=== PATIENT | male | born 1935 | race Caucasian/White ===

== ENCOUNTER → 2017-01-08 | Outpatient (CLI) | payer BC ==
[~2017-01-08] MED LIST: ADVIN25/60 INH; ATOR10TA82 PO; BEE1CAP PO; CHOL100010 PO; COEN75CA PO; FLM4 PO; GABA600T PO; GARL705C PO; IPRA1AER2 INH; LRS10 PO; MULT-221 PO; PRLSR20 PO; SNQ/25 PO; TRAM-10 PO; TRL300 PO
[2017-01-08 18:01] LABS: ALT/SGPT 25 U/L (12-78); AST/SGOT 29 U/L (15-37); BLOOD UREA NITROGEN 17 mg/dl (7-18); BUN/CREATININE RATIO 12.2 (10-20); CARBON DIOXIDE 26 mmol/L (21-32); CHLORIDE 103 mmol/L (98-107); GLUCOSE 87 mg/dl (70-99); POTASSIUM 3.9 mmol/L (3.5-5.1); SODIUM 137 mmol/L (136-145)
[2017-01-08 18:04] LABS: CHOLESTEROL/HDL RATIO 2.7
[2017-01-08 18:14] LABS: ALB/GLOB RATIO 1.3 (0.9-2); ALKALINE PHOSPHATASE 89 U/L (45-117)
== END | disposition home or self-care (01) ==
LOC: C.LABPVFM 10:30
PROVIDERS: ATTEND Family Medicine
DX: N40.1 Benign prostatic hyperplasia with lower urinary tract symptoms (principal); E78.5 Hyperlipidemia, unspecified; K21.9 Gastro-esophageal reflux disease without esophagitis; G50.0 Trigeminal neuralgia

== ENCOUNTER → 2018-06-02 | Outpatient (CLI) | payer BC | END | disposition home or self-care (01) | LOC: C.LABSPEC 13:20 | PROVIDERS: ATTEND Nurse Practitioner | DX: L02.413 Cutaneous abscess of right upper limb (principal) ==

== ENCOUNTER 2019-02-13 22:30 | Inpatient (IN) ==
[2019-02-13 23:15] LABS: Appearance Urine Clear (Clear); Bacteria Urine Automated Negative (Negative); Bilirubin Urine Negative (Negative); Blood Urine Trace (Negative); Cast Urine Automated 0 /lpf (0-5); Color Urine Yellow; Glucose Urine UA Negative (Negative); Ketones Urine Negative (Negative); Leukocyte Esterase Urine Negative (Negative); Nitrite Urine Negative (Negative); Protein Urine Negative (Negative); RBC Urine Automated 0-4 /hpf (0-4); Specific Gravity Urine 1.016 (1.000-1.030); Urobilinogen Urine Negative (Negative); pH Urine 5.5 (4.5-7.5)
[2019-02-13 23:25] LABS: Eosinophils # (auto) 0.09 K/uL (0-0.5); Eosinophils % (auto) 1.6 %; Hematocrit (blood only) 37.4 % (42-52); Hemoglobin 12.8 g/dL (14.0-18.0); Immature Granulocytes # (auto) 0.02 K/uL (0.00-0.02); Immature Granulocytes % (auto) 0.4 %; Lymphocytes # (auto) 0.73 K/uL (1.2-3.4); Lymphocytes % (auto) 13.1 %; Mean Corpuscular Hgb Conc 34.2 g/dL (32-36); Mean Corpuscular Volume 84.6 fL (80-100); Mean Platelet Volume 9.6 fL (7.4-10.4); Monocytes # (auto) 0.51 K/uL (0.11-0.59); Monocytes % (auto) 9.2 %; Neutrophils # (auto) 4.21 K/uL (1.4-6.5); Neutrophils % (auto) 75.7 %; Platelet Count 159 K/uL (130-400); RDW Standard Deviation 43.4 fL (36.4-46.3); Red Blood Count 4.42 M/uL (4.7-6.1); White Blood Count 5.56 K/uL (4.8-10.8)
[2019-02-13 23:46] LABS: Albumin Level 3.8 gm/dl (3.4-5.0); BUN Creatinine Ratio 12.9 (10-20); Calcium 9.1 mg/dl (8.5-10.1); Creatinine Clr Calc Pharmacy 40.7 ml/min; Est GFR (African American) 47.7; Est GFR (Non-African American) 41.1
[2019-02-13 23:49] LABS: Albumin Globulin Ratio 1.1 (0.9-2); Bilirubin,Total 0.5 mg/dl (0.2-1); Globulin 3.4 gm/dl (2.5-4.0); Total Protein 7.2 gm/dl (6.4-8.2)
[2019-02-14] MEDS ORDERED: IOVERSOL 100ml IV PRN (00:17)
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
--- NOTE | 2019-02-14 01:53 | History & Physical Bridge Note ---
Date of Service February 14, 2019 History & Physical Bridge Note I have examined the patient, reviewed the History & Physical and in the interval since the performance of the History & Physical I have noted the following changes of clinical significance: no changes noted
[2019-02-14] MEDS ORDERED: SUCCINYLCHOLINE 100MG/5ML SYR ONE (02:06)
[2019-02-14] MEDS ORDERED: ONDANSETRON INJ 2 MG/ML 2 ML VIAL ONE (02:06)
[2019-02-14] MEDS ORDERED: PROPOFOL IV EMULSION 10 MG/ML 20 ML VIAL IV ONE (02:06)
[2019-02-14] MEDS ORDERED: ROCURONIUM BROMIDE 10 MG/ML 5 ML VIAL ONE ×2 (02:06→04:28)
[2019-02-14] MEDS ORDERED: LIDOCAINE HCL 2% 2 ML VIAL/AMP(20MG/ML) INFIL ONE (02:06)
[2019-02-14] MEDS ORDERED: fentaNYL citrate 100 MCG/2 ML VIAL ONE (02:06)
[2019-02-14] MEDS ORDERED: ONDANSETRON INJ 2 MG/ML 2 ML VIAL IV PRN (02:10)
[2019-02-14] MEDS ORDERED: ATROPINE SULFATE 0.1 MG/ML 10ML SYR IV PRN (02:10)
[2019-02-14] MEDS ORDERED: ePHEDrine sulfate 50 MG/ML AMP IV PRN (02:10)
[2019-02-14] MEDS ORDERED: fentaNYL citrate 100 MCG/2 ML VIAL IV PRN (02:10)
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
[2019-02-14] MEDS ORDERED: LIDOCAINE HCL 1% 20 ML VIAL ONE (02:43)
[2019-02-14] MEDS ORDERED: BACITRACIN OINT 15 GM TUBE ONE (02:43)
[2019-02-14] MEDS ORDERED: BUPIVACAINE 0.5 % 5 MG/1 ML MPF 30ML VIAL ONE (02:43)
[2019-02-14] MEDS: CLINDAMYCIN 600 MG/54 ML BAG IV SCH ×2 (03:08→15:38)
[2019-02-14] MEDS ORDERED: ePHEDrine sulfate 50 MG/ML SYR ONE (03:23)
[2019-02-14] MEDS ORDERED: LARYING-O-JET KIT (LTA) ONE (03:35)
[2019-02-14] MEDS ORDERED: PHENYLEPHRINE HCL 10 MG/ML VIAL ONE (03:42)
--- NOTE | 2019-02-14 04:36 | Post Operative Brief Note ---
Immediate Post Op Note v1 Date of Surgery February 14, 2019 Pre & Post Diagnosis Operation Date: 02/14/19 02:30 Pre-Op Diagnosis: Recurrent Incarcerated Right Inguinal Hernia Post-Op Diagnosis: Recurrent Incarcerated Right Inguinal Hernia Procedure Operation Date: 02/14/19 02:30 Actual Procedures p Right Incarcerated Recurrent Inguinal Hernia Repair with Mesh Plug(Right) - Nini Stock MD Surgeon Nini Stock MD [employer] Estimated Blood Loss 10 Findings Consistent with Post-Op Diagnosis INCARCERATED RECURRENT RIGHT INGUINAL HERNIA, Fluids 800ML Specimens NONE Anesthesia Type General Complications none Disposition Accompanied Patient To Recovery: Yes Disposition: Recovery Room Overlapping Procedure I was immediately available: during the entire case.
[2019-02-14] MEDS ORDERED: HYDROmorphone INJ 0.5 MG/0.5 ML SYR IV PRN (04:47)
[2019-02-14] MEDS ORDERED: OXYCODONE/ACETAMINOPHEN 5mg/325mg TAB PO PRN (04:47)
--- NOTE | 2019-02-14 05:09 | Anesthesiology Progress Note ---
Date of Service February 14, 2019 Anesthesia Post Procedure Vital Signs Vital Signs: Temp Pulse Pulse Resp BP BP Pulse Ox 02/14/19 05:05 78 16 121/72 92 02/14/19 04:55 78 16 126/77 92 02/14/19 04:45 36.6 C 79 14 114/73 94 02/14/19 02:02 16 165/84 H 94 02/14/19 00:20 70 16 165/84 H 94 02/13/19 23:55 66 143/82 H 95 02/13/19 23:03 90 02/13/19 22:38 36.6 C 69 24 143/82 H 92 Pain Intensity Lower Abdomen: Pain Intensity: 0 Transfer of Care Handoff Completed per policy Notes Mental Status: alert / awake / arousable and participated in evaluation Patient Amnestic to Procedure: Yes Nausea / Vomiting: adequately controlled Pain: adequately controlled Airway Patency, RR, SpO2: stable & adequate BP & HR: stable & adequate Hydration State: stable & adequate Anesthetic Complications: no major complications apparent and Pt Satisfied with anesthetic care
[2019-02-14] MEDS ORDERED: TRAMADOL HCL 50 MG TABLET PO PRN (06:07)
[2019-02-14] MEDS: LACTATED RINGER'S 1,000 ML IV SCH ×2 (06:34→20:36)
[2019-02-14 06:40] LABS: Basophils # (auto) 0.01 K/uL (0-0.2); Basophils % (auto) 0.2 %; Eosinophils # (auto) 0.07 K/uL (0-0.5); Eosinophils % (auto) 1.3 %; Hematocrit (blood only) 34.4 % (42-52); Hemoglobin 12.1 g/dL (14.0-18.0); Immature Granulocytes # (auto) 0.01 K/uL (0.00-0.02); Immature Granulocytes % (auto) 0.2 %; Lymphocytes # (auto) 0.61 K/uL (1.2-3.4); Lymphocytes % (auto) 10.9 %; Mean Corpuscular Hgb Conc 35.2 g/dL (32-36); Mean Corpuscular Volume 83.5 fL (80-100); Mean Platelet Volume 8.4 fL (7.4-10.4); Monocytes # (auto) 0.64 K/uL (0.11-0.59); Monocytes % (auto) 11.4 %; Neutrophils # (auto) 4.26 K/uL (1.4-6.5); Platelet Count 139 K/uL (130-400); RDW Standard Deviation 42.4 fL (36.4-46.3); Red Blood Count 4.12 M/uL (4.7-6.1)
--- NOTE | 2019-02-14 06:45 | CT Scan Report ---
CT abd pelvis IV con only CT DOSE: 995.35 mGy.cm HISTORY: Pain Pt c/o suprapubic pain TECHNIQUE: Multiaxial CT images of the abdomen and pelvis were performed following the use of intrave nous contrast. A dose lowering technique was utilized adhering to the principles of ALARA. COMPARISON STUDY: 03/11/2012 FINDINGS: Bibasilar parenchymal infiltrates. Liver spleen and pancreas are unremarkable. 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 No evidence for renal hydronephrosis. Nonobstructive bowel pattern. 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 No evidence of 4 extraluminal fluid or dissection. Unremarkable pancreas. The remainder the bowel pattern is nonobstructive. Probable small gallstones versus gallbladder polyp s. Scattered colonic diverticulosis. Right inguinal hernia containing a nonobstructive short segment loop of bowel. Han catheter within the bladder. 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 No evidence for rupture . Considerable atelectatic change of the remaining arterial vasculature. IMPRESSION: 1. Right inguinal hernia containing a short segment loop of bowel. This is nonobstructing. 2. Polycystic kidneys. 3. Several gallstones and a polyps within the gallbladder lumen. 4. Small hiatal hernia. 5. Basilar parenchymal infiltrates. 6. 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 The above report was generated using voice recognition software. It may contain grammatical, syntax or spelling errors. Electronically signed by: Jimmy Hyatt M.D. 02/14/2019 6:44 AM
[2019-02-14 06:50] LABS: INR 1.1 (0.9-1.1); Prothrombin Time 11.6 Seconds (9.0-12.0)
[2019-02-14 07:23] LABS: Albumin Level 3.3 gm/dl (3.4-5.0); BUN Creatinine Ratio 12.1 (10-20); Bilirubin,Total 0.5 mg/dl (0.2-1); Calcium 8.6 mg/dl (8.5-10.1); Creatinine Clr Calc Pharmacy 43.8 ml/min; Est GFR (African American) 52.2; Globulin 3.2 gm/dl (2.5-4.0); Potassium 3.7 mmol/L (3.5-5.1); Total Protein 6.5 gm/dl (6.4-8.2)
--- NOTE | 2019-02-14 07:45 | Operative Report ---
DATE OF OPERATION: 02/14/2019 PREOPERATIVE DIAGNOSIS: Incarcerated recurrent right inguinal hernia. POSTOPERATIVE DIAGNOSIS: Incarcerated recurrent right inguinal hernia. OPERATION: Open repair of incarcerated recurrent right inguinal hernia with mesh. SURGEON: Nini Stock MD ANESTHESIA: General. ESTIMATED BLOOD LOSS: About 10 mL. FINDINGS: Incarcerated recurrent right inguinal hernia. Compromised blood circulation to small bowel. COMPLICATIONS: None. INDICATIONS FOR THE PROCEDURE: This is an 83-year-old gentleman who presented to the ED with incarcerated recurrent right inguinal hernia and the patient will be required to do open repair incarcerated recurrent right inguinal hernia, possible mesh. I did talk to the patient and the patient's family member about the benefit and risk, alternate procedure. I indicated the risks may include but not limited such as bleeding, infection, hernia recurrence, chronic pain, may need a bowel resection, myocardial infarction, DVT, stroke, even . They understand that they agreed to proceed with procedure. The patient's signed the consent and I answered all questions. DETAILS OF PROCEDURE: We brought the patient to the OR, put the patient in the supine position. The patient received SCD on bilateral legs to prevent DVT. The patient received 600 mg of clindamycin IV for prophylactic antibiotic. The patient received general anesthesia without difficulty. The abdomen, bilateral inguinal area was appropriately draped in routine sterile fashion. After time out, the patient had a large right inguinal incision scar and also with the bulging incarcerated hernia on the right inguinal area, so we used the old scar and made the incision, opened the skin and the subcutaneous layer, reached the external oblique, opened the external oblique and we found the patient had the incarcerated hernia. The blood circulation compromised on the bowel of the hernia content. Then, we enlarged the hernia neck and waited 10 minutes; small bowel color is getting much better and only one small spot. The small bowel color has not 100% returned pink, but that is already getting much better. At this moment, we decided to reduce all other hernia contents of bowel back to the abdominal cavity. No bowel perforation or tight bowel at this moment. So at this moment, we found the patient had recurrence of hernia through the mesh. Then, we chose another plug to plug the hernia neck and then match with another 3 x 5 cm mesh to reinforce the enlarged neck of hernia, using 2-0 Prolene mesh to the old mesh and created a new to hold for the cord structure. Then, the mesh is seated nicely, no tension. Hemostasis was obtained. Then, we closed the external oblique fascia by using 2-0 Vicryl continuous running, closed subcutaneous layer by using 2-0 Vicryl continuous running, closed skin by using staple. Then, we put the dressing on. Also, we injected the local anesthesia by using 1% lidocaine mixed with 0.5% Marcaine around the incision. Then, we put the dressing on. The patient tolerated the procedure well. All the instrument, needle, sponge count were correct x2 at the end of the case. The patient was transferred to recovery room in stable condition. I attest to the content of the Intraoperative Record and any orders documented therein. Any exception s are noted below.
[2019-02-14] MEDS ORDERED: POLYETHYLENE (MIRALAX) 17 GM PACK PO PRN (07:46)
[2019-02-14] MEDS: ATORVASTATIN 10 MG TAB PO SCH (08:55)
[2019-02-14] MEDS: lamoTRIgine 100 MG TAB PO SCH ×2 (08:56→20:33)
[2019-02-14] MEDS: DOXEPIN HCL 25 MG CAPSULE PO SCH ×2 (08:57→20:33)
[2019-02-14] MEDS: GABAPENTIN 600 MG TAB PO SCH ×2 (08:57→20:33)
[2019-02-14] MEDS: NEOMYCIN/POLYMYX/BACITR OINT 15 GM TUBE TOP SCH ×3 (08:59→20:33)
[2019-02-14] MEDS ORDERED: ENOXAPARIN INJ 30 MG/0.3 ML SYR SQ SCH (09:00)
[2019-02-14] MEDS ORDERED: CIPROFLOXACIN 500 MG TAB PO SCH (09:00)
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
--- NOTE | 2019-02-14 10:25 | Surgery Progress Note ---
Date of Service February 14, 2019 Assessment & Plan (1) Incarcerated right inguinal hernia: POD # 0 s/p repair of incarcerated right inguinal hernia -vitals stable, afebrile - post op pain minimal and controlled - no n/v, tolerating full liquids - no return of bowel function yet - adequate urine output Plan: Continue PO Percocet or Tramadol prn pain, breakthrough Dilaudid prn severe pain Continue IV Fluids Continue Full liquids for now, wait for return of bowel function Discontinue Han Incentive spirometry Consult hospitalist for co-management given comorbidities and age, await recs Consult PT/OT and case management for discharge planning SCDs for DVT prophylaxis Dr. Stock has seen and examined pt, agrees with above Subjective feeling okay today not having much pain at incision site, controlled no chest pain or shortness of breath has not been OOB since arriving in room no n/v tolerated full liquids Review of Systems Review of Systems: All systems reviewed & are unremarkable except as noted in HPI & below Physical Exam ENMT: Ears: + external ear abnormality (Edema of the left ear with ecchymosis) Respiratory: + abnormal respiratory effort and no respiratory distress Gastrointestinal (Abdomen): Inspection/Auscultation: abdomen normal to inspection; abdomen not distended Percussion/Palpation: abdomen soft; abdomen nontender, no guarding and abdomen not rigid Right groin: Incision covered with large pressure dressing which is dry and intact. Incision slightly inspected, richard intact, clean and dry Skin: no rashes, warm and dry Psychiatric: A+Ox3, euthymic affect Results & Data Vital Signs (Past 12 Hours) Vital Signs Temp Pulse Pulse Pulse Resp BP BP 02/14/19 08:44 36.4 C L 74 18 02/14/19 07:48 36.3 C L 75 18 02/14/19 06:45 36.4 C L 73 18 02/14/19 06:15 36.4 C L 74 18 02/14/19 05:45 36.5 C 75 18 02/14/19 05:25 77 16 120/61 02/14/19 05:16 77 16 111/75 02/14/19 05:05 78 16 121/72 02/14/19 04:55 78 16 126/77 02/14/19 04:45 36.6 C 79 14 114/73 02/14/19 02:02 16 165/84 H 02/14/19 00:20 70 16 165/84 H 02/13/19 23:55 66 143/82 H 02/13/19 23:03 02/13/19 22:38 36.6 C 69 24 143/82 H BP Pulse Ox 02/14/19 08:44 105/67 92 02/14/19 07:48 92/61 L 95 02/14/19 06:45 102/65 96 02/14/19 06:15 95/62 L 93 02/14/19 05:45 111/70 93 02/14/19 05:25 92 02/14/19 05:16 92 02/14/19 05:05 92 02/14/19 04:55 92 02/14/19 04:45 94 02/14/19 02:02 94 02/14/19 00:20 94 02/13/19 23:55 95 02/13/19 23:03 90 02/13/19 22:38 92
[2019-02-14] MEDS: TIOTROPIUM BROMIDE 5 PUFF/90 MCG INH INH SCH (12:52)
[2019-02-14] MEDS: DOCUSATE SODIUM 100 MG CAP PO SCH ×2 (12:52→20:33)
[2019-02-14] MEDS: RIVAROXABAN 20 MG TAB PO SCH (16:27)
[2019-02-14] MEDS: CIPROFLOXACIN 500 MG TAB PO SCH (20:33)
[2019-02-14] MEDS: TAMSULOSIN HCL 0.4 MG CAP PO SCH (20:33)
[2019-02-14] MEDS: BUDESONIDE/FORMOTEROL FUMARATE 80/4.5 60 PUFFS/INHALER INH SCH (20:33)
[2019-02-15] MEDS: LACTATED RINGER'S 1,000 ML IV SCH ×2 (05:43→16:21)
[2019-02-15 06:16] LABS: Eosinophils # (auto) 0.07 K/uL (0-0.5); Eosinophils % (auto) 1.3 %; Hematocrit (blood only) 37.2 % (42-52); Hemoglobin 12.5 g/dL (14.0-18.0); Immature Granulocytes # (auto) 0.02 K/uL (0.00-0.02); Immature Granulocytes % (auto) 0.4 %; Lymphocytes # (auto) 0.41 K/uL (1.2-3.4); Lymphocytes % (auto) 7.5 %; Mean Corpuscular Hgb Conc 33.6 g/dL (32-36); Mean Corpuscular Volume 85.1 fL (80-100); Mean Platelet Volume 9.3 fL (7.4-10.4); Monocytes # (auto) 0.99 K/uL (0.11-0.59); Monocytes % (auto) 18.1 %; Neutrophils # (auto) 3.97 K/uL (1.4-6.5); Neutrophils % (auto) 72.7 %; Platelet Count 155 K/uL (130-400); RDW Coefficient of Variation 14.2 % (11.5-14.5); RDW Standard Deviation 44.4 fL (36.4-46.3); Red Blood Count 4.37 M/uL (4.7-6.1); White Blood Count 5.46 K/uL (4.8-10.8)
[2019-02-15 06:53] LABS: BUN Creatinine Ratio 8.6 (10-20); Creatinine Clr Calc Pharmacy 42.9 ml/min; Est GFR (African American) 50.9; Est GFR (Non-African American) 43.9; Potassium 4.1 mmol/L (3.5-5.1)
[2019-02-15] MEDS: DOCUSATE SODIUM 100 MG CAP PO SCH ×2 (08:17→20:30)
[2019-02-15] MEDS: DOXEPIN HCL 25 MG CAPSULE PO SCH ×2 (08:17→20:32)
[2019-02-15] MEDS: CIPROFLOXACIN 500 MG TAB PO SCH ×2 (08:17→20:30)
[2019-02-15] MEDS: lamoTRIgine 100 MG TAB PO SCH ×2 (08:17→20:30)
[2019-02-15] MEDS: ATORVASTATIN 10 MG TAB PO SCH (08:18)
[2019-02-15] MEDS: GABAPENTIN 600 MG TAB PO SCH ×2 (08:18→20:32)
[2019-02-15] MEDS: BUDESONIDE/FORMOTEROL FUMARATE 80/4.5 60 PUFFS/INHALER INH SCH ×2 (08:19→20:34)
[2019-02-15] MEDS: NEOMYCIN/POLYMYX/BACITR OINT 15 GM TUBE TOP SCH ×3 (08:19→20:32)
[2019-02-15] MEDS: TIOTROPIUM BROMIDE 5 PUFF/90 MCG INH INH SCH (08:19)
--- NOTE | 2019-02-15 10:46 | Surgery Progress Note ---
Date of Service February 15, 2019 Assessment & Plan (1) Incarcerated right inguinal hernia: POD # 1 s/p repair of incarcerated right inguinal hernia - vitals stable, afebrile - post op pain minimal and controlled - no n/v, tolerating full liquids - no return of bowel function yet - adequate urine output Plan: Continue PO Percocet, Tramadol, Tylenol prn pain, breakthrough Dilaudid prn severe pain. Limit narcotics Continue IV Fluids, decrease rate to 50 mls/hr Regular diet today Miralax today Incentive spirometry Continue PT/OT and case management for discharge planning SCDs for DVT prophylaxis OOB to chair and ambulate with assistance repeat am labs Dr. Stock has seen and examined pt, agrees with above Subjective feeling okay today still no gas or bowel movement feeling slightly bloated, no nausea or vomiting tolerating full liquids Physical Exam Constitutional: WD/WN, vitals as above no acute distress and not ill appearing Respiratory: normal respiratory effort; no respiratory distress Gastrointestinal (Abdomen): Inspection/Auscultation: abdomen not distended Percussion/Palpation: abdomen soft; abdomen nontender, no guarding and abdomen not rigid Skin: no rashes, warm and dry + incision (Right groin incision covered with dry dressing) Psychiatric: A+Ox3, euthymic affect Results & Data Vital Signs (Past 12 Hours) Vital Signs Temp Pulse Resp BP Pulse Ox 02/15/19 07:57 36.9 C 86 16 122/78 95 02/15/19 07:13 37.2 C 84 18 98/64 L 90 02/14/19 23:56 37 C 83 18 119/72 95
[2019-02-15] MEDS ORDERED: ACETAMINOPHEN 325 MG TAB PO PRN (11:00)
[2019-02-15] MEDS: POLYETHYLENE (MIRALAX) 17 GM PACK PO SCH (11:20)
[2019-02-15] MEDS: RIVAROXABAN 20 MG TAB PO SCH (16:19)
[2019-02-15] MEDS: TAMSULOSIN HCL 0.4 MG CAP PO SCH (20:30)
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
[2019-02-16 07:38] LABS: Basophils # (auto) 0.01 K/uL (0-0.2); Basophils % (auto) 0.2 %; Eosinophils # (auto) 0.11 K/uL (0-0.5); Hematocrit (blood only) 33.5 % (42-52); Hemoglobin 11.4 g/dL (14.0-18.0); Immature Granulocytes # (auto) 0.04 K/uL (0.00-0.02); Immature Granulocytes % (auto) 0.7 %; Lymphocytes # (auto) 0.67 K/uL (1.2-3.4); Lymphocytes % (auto) 12.4 %; Mean Corpuscular Volume 85.2 fL (80-100); Monocytes # (auto) 0.97 K/uL (0.11-0.59); Neutrophils % (auto) 66.7 %; Platelet Count 158 K/uL (130-400); RDW Coefficient of Variation 14.1 % (11.5-14.5); RDW Standard Deviation 44.3 fL (36.4-46.3); Red Blood Count 3.93 M/uL (4.7-6.1)
[2019-02-16 08:04] LABS: BUN Creatinine Ratio 9.3 (10-20); Calcium 8.6 mg/dl (8.5-10.1); Creatinine Clr Calc Pharmacy 46.5 ml/min; Est GFR (Non-African American) 48.3; Potassium 3.9 mmol/L (3.5-5.1)
[2019-02-16] MEDS: DOXEPIN HCL 25 MG CAPSULE PO SCH ×2 (08:30→20:35)
[2019-02-16] MEDS: lamoTRIgine 100 MG TAB PO SCH ×2 (08:30→20:34)
[2019-02-16] MEDS: CIPROFLOXACIN 500 MG TAB PO SCH ×2 (08:30→20:34)
[2019-02-16] MEDS: TIOTROPIUM BROMIDE 5 PUFF/90 MCG INH INH SCH (08:31)
[2019-02-16] MEDS: DOCUSATE SODIUM 100 MG CAP PO SCH ×2 (08:31→20:34)
[2019-02-16] MEDS: ATORVASTATIN 10 MG TAB PO SCH (08:31)
[2019-02-16] MEDS: GABAPENTIN 600 MG TAB PO SCH ×2 (08:31→20:35)
[2019-02-16] MEDS: BUDESONIDE/FORMOTEROL FUMARATE 80/4.5 60 PUFFS/INHALER INH SCH ×2 (08:31→20:35)
[2019-02-16] MEDS: POLYETHYLENE (MIRALAX) 17 GM PACK PO SCH (08:31)
[2019-02-16] MEDS: NEOMYCIN/POLYMYX/BACITR OINT 15 GM TUBE TOP SCH ×3 (08:31→20:34)
[2019-02-16] MEDS ORDERED: BISACODYL 10 MG SUPP PR STA (14:44)
--- NOTE | 2019-02-16 14:50 | Surgery Progress Note ---
Date of Service February 16, 2019 Assessment & Plan (1) Incarcerated right inguinal hernia: POD # 2 s/p repair of incarcerated right inguinal hernia - vitals stable, afebrile - post op pain minimal and controlled - no n/v, tolerating regular diet - no return of bowel function yet - adequate urine output Plan: Continue PO Percocet, Tramadol, Tylenol prn pain, breakthrough Dilaudid prn severe pain. Limit narcotics discontinue IV fluids Regular diet Miralax and dulcolax today Incentive spirometry Continue PT/OT and case management for discharge planning, possibly home tomorrow with home health SCDs for DVT prophylaxis OOB to chair and ambulate with assistance Dr. Stock has seen and examined pt, agrees with above Subjective feeling good has not had bowel movement or passed gas yet. " I am trying" tolerating diet, no n/v no abdominal pain postop pain minimal urianting without difficulty Physical Exam Constitutional: WD/WN, vitals as above no acute distress and not ill appearing Respiratory: normal respiratory effort; no respiratory distress Gastrointestinal (Abdomen): Inspection/Auscultation: abdomen normal to inspection; abdomen not distended Percussion/Palpation: abdomen soft; abdomen nontender, no guarding and abdomen not rigid Skin: no rashes, warm and dry + incision ( covered with dry dressing) Psychiatric: A+Ox3, euthymic affect Results & Data Vital Signs (Past 12 Hours) Vital Signs Temp Pulse Resp BP Pulse Ox 02/16/19 06:58 36.5 C 79 18 118/73 93
[2019-02-16] MEDS: RIVAROXABAN 20 MG TAB PO SCH (19:22)
[2019-02-16] MEDS: TAMSULOSIN HCL 0.4 MG CAP PO SCH (20:34)
[2019-02-17] MEDS: CIPROFLOXACIN 500 MG TAB PO SCH (07:44)
[2019-02-17] MEDS: DOCUSATE SODIUM 100 MG CAP PO SCH (07:44)
[2019-02-17] MEDS: ATORVASTATIN 10 MG TAB PO SCH (07:45)
[2019-02-17] MEDS: BUDESONIDE/FORMOTEROL FUMARATE 80/4.5 60 PUFFS/INHALER INH SCH (07:45)
[2019-02-17] MEDS: lamoTRIgine 100 MG TAB PO SCH (07:45)
[2019-02-17] MEDS: NEOMYCIN/POLYMYX/BACITR OINT 15 GM TUBE TOP SCH (07:45)
[2019-02-17] MEDS: TIOTROPIUM BROMIDE 5 PUFF/90 MCG INH INH SCH (07:45)
[2019-02-17] MEDS: GABAPENTIN 600 MG TAB PO SCH (07:45)
[2019-02-17] MEDS: POLYETHYLENE (MIRALAX) 17 GM PACK PO SCH (07:46)
[2019-02-17] MEDS: DOXEPIN HCL 25 MG CAPSULE PO SCH (07:46)
[2019-02-17 08:18] VITALS: TEMP 98.4; O2SAT 97
[2019-02-17 08:22] LABS: Hematocrit (blood only) 33.3 % (42-52); Hemoglobin 11.2 g/dL (14.0-18.0); Mean Corpuscular Hgb Conc 33.6 g/dL (32-36); Mean Corpuscular Volume 85.4 fL (80-100); Mean Platelet Volume 8.9 fL (7.4-10.4); Platelet Count 176 K/uL (130-400); RDW Coefficient of Variation 14.2 % (11.5-14.5); RDW Standard Deviation 44.2 fL (36.4-46.3); White Blood Count 4.81 K/uL (4.8-10.8)
[2019-02-17 08:23] VITALS: BP 132/78
[2019-02-17 08:42] LABS: Creatinine Clr Calc Pharmacy 42.3 ml/min; Est GFR (African American) 50.1; Est GFR (Non-African American) 43.2
[2019-02-17 10:22] VITALS: PULSE 80
--- NOTE | 2019-02-17 10:26 | Surgery Progress Note ---
Date of Service February 17, 2019 Assessment & Plan (1) Incarcerated right inguinal hernia: POD # 3 s/p repair of incarcerated right inguinal hernia - vitals stable, afebrile - post op pain minimal and controlled - no n/v, tolerating regular diet - + bowel function - adequate urine output Plan: discharge home today with home health discharge instructions reviewed f/u surgical office 1-2 weeks Subjective feeling good ready to go home + bowel movements after suppository no n/v tolerating diet no post op pain/incisional pain Physical Exam Constitutional: WD/WN, vitals as above Gastrointestinal (Abdomen): Inspection/Auscultation: abdomen not distended Percussion/Palpation: abdomen soft; abdomen nontender, no guarding and abdomen not rigid Skin: no rashes, warm and dry + incision (clean/dry/intact, richard present) Psychiatric: A+Ox3, euthymic affect Results & Data Vital Signs (Past 12 Hours) Vital Signs Temp Pulse Pulse Pulse Resp BP BP 02/17/19 10:20 36.9 C 75 80 77 16 132/78 121/78 02/17/19 08:13 36.9 C 77 16 121/78 02/17/19 08:00 36.6 C 75 16 132/78 02/17/19 07:14 36.7 C 72 16 143/63 H 02/16/19 23:43 37.0 C 80 16 94/60 L Pulse Ox 02/17/19 10:20 97 02/17/19 08:13 97 02/17/19 08:00 92 02/17/19 07:14 93 02/16/19 23:43 92
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
== END 2019-02-17 11:35 | disposition home health service (06) | DRG 351 ==
LOC: ED 22:30 → 3W 02-14 02:02 → OR 02-14 02:02 → 3W 02-14 04:41

== ENCOUNTER 2020-11-23 09:32 | Inpatient (IN) ==
[2020-11-23] MEDS ORDERED: MoRPHine SULFATE 4 MG/ML 1 ML CARP\\VIAL IV STA (10:19)
[2020-11-23] MEDS ORDERED: ONDANSETRON INJ 2 MG/ML 2 ML VIAL IV STA (10:19)
[2020-11-23] MEDS ORDERED: MoRPHine SULFATE 4 MG/ML 1 ML CARP\\VIAL ONE (10:20)
[2020-11-23] MEDS ORDERED: ONDANSETRON INJ 2 MG/ML 2 ML VIAL ONE (10:20)
[2020-11-23 10:27] LABS: Hemoglobin 12.7 g/dL (14.0-18.0); Mean Corpuscular Hemoglobin 30.5 pg (25-34); Mean Corpuscular Hgb Conc 34.3 g/dL (32-36); Mean Corpuscular Volume 88.7 fL (80-100); Mean Platelet Volume 9.4 fL (7.4-10.4); Platelet Count 164 K/uL (130-400); RDW Coefficient of Variation 13.9 % (11.5-14.5); RDW Standard Deviation 45.4 fL (36.4-46.3); Red Blood Count 4.17 M/uL (4.7-6.1); White Blood Count 15.46 K/uL (4.8-10.8)
[2020-11-23 10:35] LABS: INR 1.4 (0.9-1.1); Prothrombin Time 13.9 Seconds (9.0-12.0)
[2020-11-23 10:40] LABS: BUN Creatinine Ratio 11.2 (10-20); Calcium 9.4 mg/dl (8.5-10.1); Creatinine Clr Calc Pharmacy 23.5 ml/min; Est GFR (African American) 27.7; Est GFR (Non-African American) 23.9; Potassium 3.6 mmol/L (3.5-5.1)
--- NOTE | 2020-11-23 10:41 | XRay Report ---
RIGHT FOREARM 2 VIEWS CLINICAL HISTORY: Fall with right arm swelling. FINDINGS: AP and lateral views of the right forearm are obtained. No prior studies are available for comparison at the time of dictation. The skeletal structures are osteopenic. No fracture is seen. The wrist and elbow joints are grossly maintained noting degenerative change. Diffuse soft tissue edema is present throughout the forearm. There is atherosclerotic calcification of the regional arteries. N o radiodense foreign body is identified. IMPRESSION: Diffuse soft tissue edema with no acute bony abnormality identified. Electronically signed by: Devendra Arreola M.D. 11/23/2020 10:40 AM
[2020-11-23 10:49] LABS: Basophils # (auto) 0.01 K/uL (0-0.2); Basophils % (auto) 0.1 %; Echinocytes 1+; Eosinophils # (auto) 0.02 K/uL (0-0.5); Eosinophils % (auto) 0.1 %; Immature Granulocytes # (auto) 0.04 K/uL (0.00-0.02); Immature Granulocytes % (auto) 0.3 %; Lymphocytes # (auto) 1.42 K/uL (1.2-3.4); Lymphocytes % (auto) 9.2 %; Monocytes # (auto) 1.96 K/uL (0.11-0.59); Monocytes % (auto) 12.7 %; Neutrophils # (auto) 12.01 K/uL (1.4-6.5); Neutrophils % (auto) 77.6 %
--- NOTE | 2020-11-23 10:55 | Emergency Department Note ---
Impression & Plan Cellulitis of forearm, right ED Provider Note Provider: Francisco Maradiaga MD DATE OF SERVICE: 11/23/2020 CHIEF COMPLAINT: Right forearm injury HISTORY OF PRESENT ILLNESS: Patient is a 85-year-old gentleman past medical history including trigeminal neuralgia, hyperlipidemia, PVD, BPH, COPD, and DVT on Xarelto presenting here today with son with concerns about oozing wound in the right forearm. Evidently some amount of the wound is been present for about a week although the patient is not the best historian. Son states he just learned about this over the last 2 day or so. Patient noted some bleeding and discharge today and thought it was worsening so came here for evaluation. Son also states that the wound seems to have expanded from the size of a dime now to more enlarged area of the right forearm. Patient himself did have a fall recently and was seen here in the emergency room and by the primary care's office but evidently he did not note this injury to them at that time. No fevers have been reported or other trauma or wounds. Patient is still suffering from some right-sided head neck pain which was previously evaluated with imaging here and seen in the outpatient clinic setting. Patient denies numbness in his right hand but states there is pain significantly in the right forearm. He is reportedly on Xarelto for history of DVT in the past in his legs. Patient is unable to clearly state how he obtained the wound. REVIEW OF SYSTEMS: A total of 10 review of systems was obtained and negative except as stated above in the HPI. PAST MEDICAL HISTORY: As noted above MEDICATIONS: Reviewed the home medications which include Xarelto and Plavix SOCIAL HISTORY: Former smoker, , lives at home PHYSICAL EXAM: GENERAL: alert and oriented in no acute distress on stretcher Head: normocephalic and atraumatic EYES: No injection, discharge or icterus. NECK: Trachea midline. Supple. LUNGS: Airway patent. No retractions. Breath sounds with faint scattered wheeze HEART: Regular rate and rhythm. No chest wall tenderness ABDOMEN: Soft and non-tender, without guarding or rebound SKIN: Acyanotic, warm, dry EXTREMITIES: Without swelling, tenderness or deformity except for erythema diffusely on the dorsal side of the right forearm extending just distal to the elbow to just proximal to the wrist; there is evidence of a darker area with some slight fluctuance approximately 6 cm x 6 cm more circular in fashion. With slight touch and gentle pressure there is some bloody and purulent material coming through multiple small skin defects in this area. No active significant bleeding noted. Not circumferential and does not significantly involve the volar side of the forearm. Patient is able to move his fingers on his right hand without significant pain or discomfort. There is some slight edema of the right hand distally to the area of apparent infection. NEUROLOGICAL: No focal deficits. No aphasia. No facial droop or slurred speech. Intact gross sensation in the right hand and fingers. Patient's laboratory studies and imaging reviewed. Differential includes Foreign body, fracture, dislocation, joint compromise, infection, soft tissue injury, tendon injury, vascular compromise, compartment syndrome, as well as other pathologies. IMPRESSION/MEDICAL DECISION MAKING: Patient presents with son with concern for wound of the right forearm. Again really unclear exactly how this started but appears to be fairly significant size with surrounding erythema. Soft compartments and I doubt a deeper compartment syndrome. Able to move the fingers without significant discomfort and doubt that this extends through the fascia. No crepitus appreciated. There is with some light touch some bloody and purulent material expressed from a significant area in the forearm but again seems more subcutaneous. No significant tenderness of the hand or wrist joint, elbow, or upper arm. I doubt infection here elsewhere in the upper extremity or joints. Patient's tetanus status in the chart is up-to-date. Does have a listed allergy to penicillin but has received Ancef before. Will give a dose of Rocephin and start on vancomycin. Blood work is concerning with a white count of 15 also his renal function is off today with a creatinine of 2.37 from a baseline around 1.4. X- ray of the forearm without underlying bony injury. Patient continues some intermittent issues with some right neck and head pain. Has had prior injury. No reported new trauma. Patient does appear meningitic. Not having significant acute neurological deficit and do not feel we need new imaging here. Has been undergoing outpatient further evaluation for this over. Patient is on both Xarelto and Plavix. There does not seem to be a clear several focal area of purulence around the wound as there were scattered subcutaneous locules over a fairly large area. Attempted to break up and disrupted express the majority but especially given his anticoagulation status and size not really amenable to a large I&D at this time. Cultures and lactate were sent. Given that the patient is not the best historian and as this wound progressed to this point as well as his comorbidities, renal dysfunction today, and elevated white blood cell count did discuss with the family best options for further care. Discussed further observation here in the hospital and the hospit alist was contacted. DIAGNOSIS: Right forearm cellulitis DISPOSITION: Hospitalist will evaluate Patient was agreeable with this plan. Discussed return precautions and advised follow up. 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: No Beliefs That Will Affect Care: None marital status: Current Living Situation: Spouse current occupational status: retired Feels Safe at Home: Yes Safety Concerns: Feels Safe At This Time caffeine: Yes Dental Care, Regularly: Yes Physical Activity Frequency: Daily Seatbelt Use: always Sunscreen Use: No Assistive Devices: Denture - Upper, Denture - Lower, Glasses, Hearing Aid - Left and Hearing Aid - Right Allergies Allergies Allergy/AdvReac Type Severity Reaction Status Date / Time Penicillins Allergy Severe SHOCK Verified 11/23/20 11:15 aspirin Allergy Unknown Swelling Verified 11/23/20 11:15 Home Meds Home Medications Medication Instructions Recorded Confirmed ipratropium 20 mcg-albuterol 100 1 puffs INHALATION QID PRN gm 09/27/19 02/13/21 mcg/actuation mist for inhalation rivaroxaban 20 mg tablet 20 mg PO QAM tab 07/07/19 11/23/20 tiotropium bromide 18 mcg capsule 1 cap INHALATION DAILY puffs 07/07/19 11/23/20 with inhalation device tamsulosin 0.4 mg capsule 0.4 mg PO DAILY cap 09/21/19 11/23/20 clopidogrel 75 mg PO QAM 05/27/20 11/23/20 esomeprazole magnesium [Nexium] 20 mg PO DAILY 05/27/20 11/23/20 bee pollen 550 mg PO DAILY 11/16/20 11/23/20 Previous Rx's Medication Instructions Recorded garlic 500 mg capsule 500 mg PO DAILY #30 cap 03/09/19 multivitamin 1 tab PO DAILY #30 tab 03/09/19 lamotrigine 150 mg tablet 150 mg PO BID #60 tab 08/15/20 gabapentin 600 mg tablet 600 mg PO BID #180 tab 09/23/20 diclofenac sodium 1 % topical gel 4 g TOPICAL QID PRN #150 g 11/05/20 doxepin 25 mg capsule 25 mg PO BID #180 cap 11/08/20 Results & Data (ED) Vital Signs Vital Signs - 24 hr 11/23/20 09:42 11/23/20 10:48 11/23/20 11:41 Temperature 36.4 C L Temperature Source Temporal Artery Scan Pulse Rate 86 Pulse Rate [Left Finger] 73 72 Respiratory Rate 20 18 16 Blood Pressure 99/69 L Blood Pressure [Left Arm] 92/50 L 105/59 L Blood Pressure Mean 79 Blood Pressure Mean [Left Arm] 64 74 Blood Pressure Position Sitting Pulse Oximetry 95 93 95 Oxygen Delivery Method Room Air Nasal Cannula Nasal Cannula Oxygen Flow Rate 2 2 Sepsis Recent Fever Within 48 Hours No Sepsis New/Unexplained Change in Mental Status No Sepsis Action Taken by Nursing No Action Required 11/23/20 12:11 Temperature Temperature Source Pulse Rate Pulse Rate [Left Finger] 74 Respiratory Rate 20 Blood Pressure Blood Pressure [Left Arm] 105/60 Blood Pressure Mean Blood Pressure Mean [Left Arm] 75 Blood Pressure Position Pulse Oximetry 92 Oxygen Delivery Method Nasal Cannula Oxygen Flow Rate 2 Sepsis Recent Fever Within 48 Hours Sepsis New/Unexplained Change in Mental Status Sepsis Action Taken by Nursing Laboratory Data Result diagrams: 11/23/20 10:02 11/23/20 10:02 Lab Results 11/23/20 11/23/20 11/23/20 Range/Units 10:02 10:02 10:02 WBC 15.46 H (4.8-10.8) K/uL RBC 4.17 L (4.7-6.1) M/uL Hgb 12.7 L (14.0-18.0) g/dL Hct 37.0 L (42-52) % MCV 88.7 (80-100) fL MCH 30.5 (25-34) pg MCHC 34.3 (32-36) g/dL RDW Std Deviation 45.4 (36.4-46.3) fL RDW Coeff of Saturnino 13.9 (11.5-14.5) % Plt Count 164 (130-400) K/uL MPV 9.4 (7.4-10.4) fL Immature Gran % (Auto) 0.3 % Neut % (Auto) 77.6 % Lymph % (Auto) 9.2 % Henry % (Auto) 12.7 % Eos % (Auto) 0.1 % Baso % (Auto) 0.1 % Neut # (Auto) 12.01 H (1.4-6.5) K/uL Lymph # (Auto) 1.42 (1.2-3.4) K/uL Henry # (Auto) 1.96 H (0.11-0.59) K/uL Eos # (Auto) 0.02 (0-0.5) K/uL Baso # (Auto) 0.01 (0-0.2) K/uL Immature Gran # (Auto) 0.04 H (0.00-0.02) K/uL Echinocytes 1+ PT 13.9 H (9.0-12.0) Seconds INR 1.4 H (0.9-1.1) Sodium 134 L (136-145) mmol/L Potassium 3.6 (3.5-5.1) mmol/L Chloride 100 (98-107) mmol/L Carbon Dioxide 24 (21-32) mmol/L Anion Gap 10.0 (3-11) BUN 27 H (7-18) mg/dl Creatinine 2.37 H (0.6-1.4) mg/dl Est Cr Clr Drug Dosing 23.5 ml/min Est GFR ( Amer) 27.7 Est GFR (Non-Af Amer) 23.9 BUN/Creatinine Ratio 11.2 (10-20) Glucose 74 (70-99) mg/dl Lactate (0.4-2.0) mmol/L Calcium 9.4 (8.5-10.1) mg/dl C-Reactive Protein (0-0.29) mg/dl Procalcitonin (0-0.5) ng/ml COVID-19 Eval Order SARS-CoV-2, RNA, NAAT (NEGATIVE) 11/23/20 11/23/20 11/23/20 Range/Units 10:02 10:02 10:42 WBC (4.8-10.8) K/uL RBC (4.7-6.1) M/uL Hgb (14.0-18.0) g/dL Hct (42-52) % MCV (80-100) fL MCH (25-34) pg MCHC (32-36) g/dL RDW Std Deviation (36.4-46.3) fL RDW Coeff of Saturnino (11.5-14.5) % Plt Count (130-400) K/uL MPV (7.4-10.4) fL Immature Gran % (Auto) % Neut % (Auto) % Lymph % (Auto) % Henry % (Auto) % Eos % (Auto) % Baso % (Auto) % Neut # (Auto) (1.4-6.5) K/uL Lymph # (Auto) (1.2-3.4) K/uL Henry # (Auto) (0.11-0.59) K/uL Eos # (Auto) (0-0.5) K/uL Baso # (Auto) (0-0.2) K/uL Immature Gran # (Auto) (0.00-0.02) K/uL Echinocytes PT (9.0-12.0) Seconds INR (0.9-1.1) Sodium (136-145) mmol/L Potassium (3.5-5.1) mmol/L Chloride (98-107) mmol/L Carbon Dioxide (21-32) mmol/L Anion Gap (3-11) BUN (7-18) mg/dl Creatinine (0.6-1.4) mg/dl Est Cr Clr Drug Dosing ml/min Est GFR ( Amer) Est GFR (Non-Af Amer) BUN/Creatinine Ratio (10-20) Glucose (70-99) mg/dl Lactate 2.0 (0.4-2.0) mmol/L Calcium (8.5-10.1) mg/dl C-Reactive Protein 10.70 H (0-0.29) mg/dl Procalcitonin 0.46 (0-0.5) ng/ml COVID-19 Eval Order SARS-CoV-2, RNA, NAAT (NEGATIVE) 11/23/20 11/23/20 Range/Units 11:45 11:45 WBC (4.8-10.8) K/uL RBC (4.7-6.1) M/uL Hgb (14.0-18.0) g/dL Hct (42-52) % MCV (80-100) fL MCH (25-34) pg MCHC (32-36) g/dL RDW Std Deviation (36.4-46.3) fL RDW Coeff of Saturnino (11.5-14.5) % Plt Count (130-400) K/uL MPV (7.4-10.4) fL Immature Gran % (Auto) % Neut % (Auto) % Lymph % (Auto) % Henry % (Auto) % Eos % (Auto) % Baso % (Auto) % Neut # (Auto) (1.4-6.5) K/uL Lymph # (Auto) (1.2-3.4) K/uL Henry # (Auto) (0.11-0.59) K/uL Eos # (Auto) (0-0.5) K/uL Baso # (Auto) (0-0.2) K/uL Immature Gran # (Auto) (0.00-0.02) K/uL Echinocytes PT (9.0-12.0) Seconds INR (0.9-1.1) Sodium (136-145) mmol/L Potassium (3.5-5.1) mmol/L Chloride (98-107) mmol/L Carbon Dioxide (21-32) mmol/L Anion Gap (3-11) BUN (7-18) mg/dl Creatinine (0.6-1.4) mg/dl Est Cr Clr Drug Dosing ml/min Est GFR ( Amer) Est GFR (Non-Af Amer) BUN/Creatinine Ratio (10-20) Glucose (70-99) mg/dl Lactate (0.4-2.0) mmol/L Calcium (8.5-10.1) mg/dl C-Reactive Protein (0-0.29) mg/dl Procalcitonin (0-0.5) ng/ml COVID-19 Eval Order Covid19 IDNow atMNVC SARS-CoV-2, RNA, NAAT NEGATIVE (NEGATIVE) Administered Medications Discontinued Medications Sodium Chloride (Nss 1000ml) 500 mls @ 999 mls/hr IV .Q31M ONE Stop: 11/23/20 11:55 Last Infusion: 11/23/20 12:14 Dose: 0 mls/hr Documented by: [id number] Admin: 11/23/20 11:38 Dose: 999 mls/hr Documented by: [id number] Ceftriaxone Sodium (Rocephin) 2,000 mg in 70 mls @ 140 mls/hr IV NOW STA Stop: 11/23/20 11:54 Last Infusion: 11/23/20 12:15 Dose: 0 mls/hr Documented by: [id number] Admin: 11/23/20 11:37 Dose: 140 mls/hr Documented by: [id number] Vancomycin HCl 1,750 mg/ (Sodium Chloride) 535 mls @ 200 mls/hr IV NOW ONE Stop: 11/23/20 14:05 Last Infusion: 11/23/20 15:46 Dose: 0 mls/hr Documented by: [id number] Admin: 11/23/20 12:12 Dose: 200 mls/hr Documented by: [id number] Lactated Ringer's (Lr) 500 mls @ 999 mls/hr IV .Q31M ONE Stop: 11/23/20 13:07 Last Infusion: 11/23/20 15:53 Dose: 0 mls/hr Documented by: [id number] Admin: 11/23/20 15:45 Dose: 999 mls/hr Documented by: [id number] Morphine Sulfate (Morphine Sulfate 4 Mg/Ml 1 Ml Carp\Vial) 4 mg IV NOW STA Stop: 11/23/20 10:20 Last Admin: 11/23/20 10:24 Dose: 4 mg Documented by: [id number] Morphine Sulfate (Morphine Sulfate 4 Mg/Ml 1 Ml Carp\Vial) Confirm Administered Dose 4 mg .ROUTE .STK-MED ONE Stop: 11/23/20 10:21 Last Admin: 11/23/20 10:25 Dose: Not Given Documented by: [id number] Ondansetron HCl (Ondansetron Inj 2 Mg/Ml 2 Ml Vial) 4 mg IV NOW STA Stop: 11/23/20 10:20 Last Admin: 11/23/20 10:24 Dose: 4 mg Documented by: [id number] Ondansetron HCl (Ondansetron Inj 2 Mg/Ml 2 Ml Vial) Confirm Administered Dose 4 mg .ROUTE .STK-MED ONE Stop: 11/23/20 10:21 Last Admin: 11/23/20 10:25 Dose: Not Given Documented by: [id number] Discharge Plan Visit Data Chief Complaint: Fall Stated Complaint: FALL/INJURING RIGHT ARM ED Provider: Francisco Maradiaga Discharge Problem: Cellulitis of forearm, right Patient Disposition: Admitted As Inpatient Discharge Instructions Interventions: ED Discharge Assessment Last Done: 11/23/20 13:52
[2020-11-23] MEDS ORDERED: VANCOMYCIN HCL 1,750 MG in SODIUM CHLORIDE 0.9% 500 ML IV ONE (11:25)
[2020-11-23] MEDS ORDERED: VANCOMYCIN CONSULT ACTIVE PRN ×2 (11:25→14:58)
[2020-11-23] MEDS ORDERED: cefTRIAXone SODIUM 2,000 MG/70 ML BAG IV STA (11:25)
[2020-11-23] MEDS ORDERED: SODIUM CHLORIDE 0.9% 1000ML 500 ML IV ONE (11:25)
[2020-11-23] MEDS ORDERED: LACTATED RINGER'S 500 ML IV ONE ×2 (12:37→18:24)
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
[2020-11-23] MEDS ORDERED: IPRATROPIUM BROMIDE/ALBUTEROL respimat INH INH PRN (14:58)
[2020-11-23] MEDS ORDERED: POLYETHYLENE (MIRALAX) 17 GM PACK PO PRN (14:58)
[2020-11-23] MEDS ORDERED: Ipratropium HFA Inhaler (Combivent Respimat P&T Subs) INH PRN (15:14)
[2020-11-23] MEDS ORDERED: Albuterol HFA 8 GM Inhaler (Combivent Respimat P&T Subs) INH PRN (15:14)
--- NOTE | 2020-11-23 15:18 | Pharmacy Report ---
Pharmacy Abx Initial Consult - Date of Service November 23, 2020 - Pharmacy Dosing Scope Date of Consult: 11/23/20 Consultation requested by: АНДРЕЙ KENYON Pharmacy is consulted to initiate VANCOMYCIN IV dosing therapy, order appropriate labs and adjust drug dose/frequency. - Subjective The patient is a 85 year old M admitted on 11/23/20 12:55. - Objective Height: 5 ft 7 in Weight: 86.4 kg Vital Signs (Past 12hrs): Vital Signs Temp Pulse Pulse Resp BP BP Pulse Ox 11/23/20 13:52 73 14 105/60 95 11/23/20 13:37 73 14 105/60 95 11/23/20 12:11 74 20 105/60 92 11/23/20 11:41 72 16 105/59 L 95 11/23/20 10:48 73 18 92/50 L 93 11/23/20 09:42 36.4 C L 86 20 99/69 L 95 Lab Results (24hrs): Laboratory Tests (24 Hours) 11/23/20 11/23/20 11/23/20 Unknown 10:02 10:02 WBC Neut # (Auto) ESR 16 H Creatinine Est Cr Clr Drug Dosing C-Reactive Protein 10.70 H Procalcitonin 0.46 11/23/20 11/23/20 10:02 10:02 WBC 15.46 H Neut # (Auto) 12.01 H ESR Creatinine 2.37 H Est Cr Clr Drug Dosing 23.5 C-Reactive Protein Procalcitonin Micro Results: 11/23/20 10:15 Gram Stain - Final Arm,Right Wound Culture - Pending 11/23/20 10:37 Aerobic Blood Culture - Pending Blood Anaerobic Blood Culture - Pending 11/23/20 10:02 Aerobic Blood Culture - Pending Blood Anaerobic Blood Culture - Pending - Assessment & Plan Assessment 85 year old M ordered Vancomycin + CTX for mild-moderate purulent cellulitis of the right upper arm Scr elevated from baseline at 2.37 mg/dl (baseline ~ 1.3-1.4 mg/dl). Pt does NOT meet criteria for AUC dosing based on PRATIK on CKD Plan Vancomycin IV * Estimated PK Parameters: Vd 0.6 L/kg, Fercho 0.022 hr-1, t1/2 31.5 hr * Loading dose: 1,750 mg (25 mg/kg) given in ED * Maintenance dose: 1,250 mg IV (14.5 mg/kg) every 24 hours * Goal trough level for SST : 10 to 20 mcg/mL based on c/s results * Expect renal function to improve over the next 24hrs will start with daily dosing but will extend out to Q36hr dosing if Scr does not improve. Ceftriaxone * Pt ordered 2,000mg IV Q24hrs which is appropriate based on age and indication Pharmacy will continue to follow and will adjust dose/frequency as necessary. Thank you.
[2020-11-23] MEDS ORDERED: PNEUMOCOCCAL ADMINISTRATION CHARGE ONE (15:32)
[2020-11-23 17:14] LABS: Appearance Urine Cloudy (Clear); Bacteria Urine Automated Negative (Negative); Bilirubin Urine Negative (Negative); Blood Urine Negative (Negative); Color Urine Dark Yellow; Epithelial Cell Urine Auto >30 /lpf (0-5); Glucose Urine UA Negative (Negative); Ketones Urine Negative (Negative); Leukocyte Esterase Urine Trace (Negative); Nitrite Urine Negative (Negative); Protein Urine Trace (Negative); Specific Gravity Urine 1.019 (1.000-1.030); Urobilinogen Urine Negative (Negative)
[2020-11-23] MEDS: ACETAMINOPHEN 325 MG TAB PO PRN (17:25)
[2020-11-23] MEDS: MoRPHine SULFATE 2 MG/ML CARP IV PRN (17:39)
[2020-11-23] MEDS: GABAPENTIN 600 MG TAB PO SCH (20:27)
[2020-11-23] MEDS: lamoTRIgine 100 MG TAB PO SCH (20:27)
[2020-11-23] MEDS: DOXEPIN HCL 25 MG CAPSULE PO SCH (20:27)
[2020-11-24] MEDS: MoRPHine SULFATE 2 MG/ML CARP IV PRN ×4 (03:45→23:22)
[2020-11-24 06:31] LABS: Basophils # (auto) 0.01 K/uL (0-0.2); Basophils % (auto) 0.1 %; Eosinophils # (auto) 0.07 K/uL (0-0.5); Eosinophils % (auto) 0.7 %; Hematocrit (blood only) 37.2 % (42-52); Hemoglobin 12.5 g/dL (14.0-18.0); Immature Granulocytes # (auto) 0.02 K/uL (0.00-0.02); Immature Granulocytes % (auto) 0.2 %; Lymphocytes # (auto) 0.97 K/uL (1.2-3.4); Lymphocytes % (auto) 10.1 %; Mean Corpuscular Hgb Conc 33.6 g/dL (32-36); Mean Corpuscular Volume 89.2 fL (80-100); Mean Platelet Volume 9.4 fL (7.4-10.4); Monocytes # (auto) 1.03 K/uL (0.11-0.59); Monocytes % (auto) 10.8 %; Neutrophils # (auto) 7.48 K/uL (1.4-6.5); Neutrophils % (auto) 78.1 %; Platelet Count 159 K/uL (130-400); RDW Coefficient of Variation 13.9 % (11.5-14.5); RDW Standard Deviation 45.6 fL (36.4-46.3); Red Blood Count 4.17 M/uL (4.7-6.1); White Blood Count 9.58 K/uL (4.8-10.8)
[2020-11-24 06:41] LABS: INR 1.1 (0.9-1.1); Prothrombin Time 11.5 Seconds (9.0-12.0)
[2020-11-24 07:04] LABS: Albumin Level 3.3 gm/dl (3.4-5.0); BUN Creatinine Ratio 13.8 (10-20); Bilirubin Direct 0.3 mg/dl (0-0.2); Calcium 9.2 mg/dl (8.5-10.1); Creatinine Clr Calc Pharmacy 29.6 ml/min; Est GFR (African American) 36.7; Est GFR (Non-African American) 31.6; Potassium 3.9 mmol/L (3.5-5.1)
[2020-11-24 07:07] LABS: Bilirubin,Total 0.7 mg/dl (0.2-1); Total Protein 6.5 gm/dl (6.4-8.2)
[2020-11-24] MEDS: lamoTRIgine 100 MG TAB PO SCH ×2 (07:45→20:35)
[2020-11-24] MEDS: CLOPIDOGREL BISULFATE 75 MG TAB PO SCH (07:46)
[2020-11-24] MEDS: TAMSULOSIN HCL 0.4 MG CAP PO SCH (07:46)
[2020-11-24] MEDS: PANTOprazole 40 MG TAB PO SCH (07:46)
[2020-11-24] MEDS: MULTIVITAMIN TAB PO SCH (07:46)
[2020-11-24] MEDS: DOXEPIN HCL 25 MG CAPSULE PO SCH ×3 (07:47→20:56)
[2020-11-24] MEDS: RIVAROXABAN 20 MG TAB PO SCH (07:47)
[2020-11-24] MEDS: GABAPENTIN 600 MG TAB PO SCH ×3 (07:47→20:56)
[2020-11-24] MEDS: VANCOMYCIN HCL 1,250 MG in SODIUM CHLORIDE 0.9% 250 ML IV SCH (08:49)
[2020-11-24] MEDS: UMECLIDINIUM BROMIDE 62.5MCG/BLISTER 7 PUFFS/INHALER INH SCH (08:57)
[2020-11-24] MEDS ORDERED: PNEUMOCOCCAL POLYSACCHARIDES 25 MCG/0.5 ML VIAL/SYR IM ONE (09:00)
[2020-11-24] MEDS ORDERED: PNEUMOCOCCAL ADMINISTRATION CHARGE ONE (09:00)
[2020-11-24] MEDS: ADVANCED PROBIOTIC 1250 MG CAPSULE PO SCH (12:12)
[2020-11-24] MEDS: cefTRIAXone SODIUM 2,000 MG in DEXTROSE 5% 50 ML IV SCH (12:12)
--- NOTE | 2020-11-24 13:28 | Hospitalist Progress Note ---
Date of Service November 24, 2020 Assessment & Plan (1) Sepsis: 2nd to right arm staph cellulitis with necrotic abscess. follow blood & wound cultures. cont rocephin/vanco. supportive care. gen surg consult for abscess. (2) Metabolic encephalopathy: 2nd to sepsis from right arm infection - improved today. (3) Cellulitis: RUE. Culture growing staph. Large area of necrotic skin with underlying purulence - needs debridement and wash-out. Dr Gale consulted from gen surgery - to OR tomorrow for such. (4) Abscess of forearm, right: 2nd to staph. see above. pain control. local dressings. gen surg consult for debridement, washout, etc. wound care consult to be placed as well. (5) PRATIK (acute kidney injury): sepsis-associated. Initial Cr 2.3, now 1.8. Should cont to improve. BMP am. (6) CKD (chronic kidney disease), stage III: baseline Cr 1.4 (7) Trigeminal neuralgia: Continue Gabapentin and his Doxepin. Consider adding afternoon dose of gabapentin. Pain meds for right arm should help trigeminal neuralgia as well. 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 Had presented with pulseless right foot Cont plavix, xarelto Ideally should be on statin (11) Acid reflux disease: PPI (12) Renal cyst: Numerous bilateral large cysts on imaging no Rx at this time has PRATIK but improving PRATIK unrelated to cysts (13) BPH (benign prostatic hyperplasia): cont flomax (14) DVT prophylaxis: xarelto updated pt's family with plan of care including likely OR tomorrow for debridement of right arm spoke directly with Dr Gale re: plan of care Admission and Anticipated Discharge Date Admission Date: November 23, 2020 Subjective pt c/o right arm pain at site of infection. nursing staff report his confusion is much better today. eating well - 100% of meals per flowsheets. no other complaints. patient cannot give details about what led up to the right arm infection. denies any trauma, scratch, etc to the right arm. denies having pets. Review of Systems Constitutional: no fever and no chills Respiratory: no cough and no dyspnea Cardiovascular: no chest pain Gastrointestinal: no abdominal pain, no nausea and no vomiting Physical Exam Constitutional: + acute distress (only when right arm is manipulated at site of infection); no altered mental status (but very poor historian ) ENMT: external ear and nose normal, oropharynx normal Respiratory: normal respiratory effort, lungs clear to auscultation Cardiovascular: Rate/Rhythm: regular rate and regular rhythm Heart Sounds: normal S1 and normal S2 Vessels: posterior tibial pulses present, dorsalis pedis pulses present and radial pulses present; no JVD Extremities: no edema Gastrointestinal (Abdomen): normal bowel sounds, soft, nontender, no hepatosplenomegaly Skin: right arm, mainly dorsal aspect - diffuse erythema extending distal to right elbow and ending before the right wrist; on dorsal aspect of mid-forearm he as about a 4cm area of necrotic appearing, dark colored skin with multiple areas of visible purulent liquid underneath this skin; with pushing on the abscess he has discomfort and purulence exudes from it Psychiatric: Orientation: alert, oriented to person and oriented to place Results & Data Results & Data ([facility]) Vital Signs (Past 12 Hours) Vital Signs Temp Pulse Resp BP Pulse Ox 11/24/20 07:53 36.8 C 83 20 165/74 H 93 Laboratory Results Laboratory Results - last 24 hr 11/23/20 11/23/20 11/23/20 16:47 17:00 17:00 WBC RBC Hgb Hct MCV MCH MCHC RDW Std Deviation RDW Coeff of [place] Plt Count MPV Immature Gran % (Auto) Neut % (Auto) Lymph % (Auto) [place] % (Auto) Eos % (Auto) Baso % (Auto) Neut # (Auto) Lymph # (Auto) [place] # (Auto) Eos # (Auto) Baso # (Auto) Immature Gran # (Auto) PT INR Sodium Potassium Chloride Carbon Dioxide Anion Gap BUN Creatinine Est Cr Clr Drug Dosing Est GFR ( Amer) Est GFR (Non-Af Amer) BUN/Creatinine Ratio Glucose POC Glucose 86 Calcium Total Bilirubin Direct Bilirubin AST ALT Alkaline Phosphatase Total Protein Albumin Triglycerides Cholesterol LDL Cholesterol, Calc VLDL Cholesterol, Calc HDL Cholesterol Cholesterol/HDL Ratio Urine Color Dark Yellow Urine Appearance Cloudy A Urine pH 5.0 Ur Specific [place] 1.019 Urine Protein Trace H Urine Glucose (UA) Negative Urine Ketones Negative Urine Blood Negative Urine Nitrite Negative Urine Bilirubin Negative Urine Urobilinogen Negative Ur Leukocyte Esterase Trace H Urine WBC (Auto) 5-10 H Urine RBC (Auto) 10-30 H U Hyaline Cast (Auto) 10-30 H U Epithel Cells (Auto) >30 H Urine Bacteria (Auto) Negative Granular Casts 1-5 H Ur Random Creatinine 134.0 11/23/20 11/24/20 11/24/20 20:34 06:13 06:13 WBC 9.58 RBC 4.17 L Hgb 12.5 L Hct 37.2 L MCV 89.2 MCH 30.0 MCHC 33.6 RDW Std Deviation 45.6 RDW Coeff of [place] 13.9 Plt Count 159 MPV 9.4 Immature Gran % (Auto) 0.2 Neut % (Auto) 78.1 Lymph % (Auto) 10.1 [place] % (Auto) 10.8 Eos % (Auto) 0.7 Baso % (Auto) 0.1 Neut # (Auto) 7.48 H Lymph # (Auto) 0.97 L [place] # (Auto) 1.03 H Eos # (Auto) 0.07 Baso # (Auto) 0.01 Immature Gran # (Auto) 0.02 PT INR Sodium 136 Potassium 3.9 Chloride 103 Carbon Dioxide 25 Anion Gap 9.0 BUN 26 H Creatinine 1.88 H D Est Cr Clr Drug Dosing 29.6 Est GFR ( Amer) 36.7 Est GFR (Non-Af Amer) 31.6 BUN/Creatinine Ratio 13.8 Glucose 90 POC Glucose 104 H Calcium 9.2 Total Bilirubin 0.7 Direct Bilirubin 0.3 H AST 11 L ALT 18 Alkaline Phosphatase 90 Total Protein 6.5 Albumin 3.3 L Triglycerides 66 Cholesterol 83 LDL Cholesterol, Calc 31 VLDL Cholesterol, Calc 13 HDL Cholesterol 39 Cholesterol/HDL Ratio 2 Urine Color Urine Appearance Urine pH Ur Specific [place] Urine Protein Urine Glucose (UA) Urine Ketones Urine Blood Urine Nitrite Urine Bilirubin Urine Urobilinogen Ur Leukocyte Esterase Urine WBC (Auto) Urine RBC (Auto) U Hyaline Cast (Auto) U Epithel Cells (Auto) Urine Bacteria (Auto) Granular Casts Ur Random Creatinine 11/24/20 11/24/20 11/24/20 06:13 08:29 08:47 WBC RBC Hgb Hct MCV MCH MCHC RDW Std Deviation RDW Coeff of [place] Plt Count MPV Immature Gran % (Auto) Neut % (Auto) Lymph % (Auto) [place] % (Auto) Eos % (Auto) Baso % (Auto) Neut # (Auto) Lymph # (Auto) [place] # (Auto) Eos # (Auto) Baso # (Auto) Immature Gran # (Auto) PT 11.5 INR 1.1 Sodium Potassium Chloride Carbon Dioxide Anion Gap BUN Creatinine Est Cr Clr Drug Dosing Est GFR ( Amer) Est GFR (Non-Af Amer) BUN/Creatinine Ratio Glucose POC Glucose 80 80 Calcium Total Bilirubin Direct Bilirubin AST ALT Alkaline Phosphatase Total Protein Albumin Triglycerides Cholesterol LDL Cholesterol, Calc VLDL Cholesterol, Calc HDL Cholesterol Cholesterol/HDL Ratio Urine Color Urine Appearance Urine pH Ur Specific [place] Urine Protein Urine Glucose (UA) Urine Ketones Urine Blood Urine Nitrite Urine Bilirubin Urine Urobilinogen Ur Leukocyte Esterase Urine WBC (Auto) Urine RBC (Auto) U Hyaline Cast (Auto) U Epithel Cells (Auto) Urine Bacteria (Auto) Granular Casts Ur Random Creatinine 11/24/20 12:21 WBC RBC Hgb Hct MCV MCH MCHC RDW Std Deviation RDW Coeff of [place] Plt Count MPV Immature Gran % (Auto) Neut % (Auto) Lymph % (Auto) [place] % (Auto) Eos % (Auto) Baso % (Auto) Neut # (Auto) Lymph # (Auto) [place] # (Auto) Eos # (Auto) Baso # (Auto) Immature Gran # (Auto) PT INR Sodium Potassium Chloride Carbon Dioxide Anion Gap BUN Creatinine Est Cr Clr Drug Dosing Est GFR ( Amer) Est GFR (Non-Af Amer) BUN/Creatinine Ratio Glucose POC Glucose 108 H Calcium Total Bilirubin Direct Bilirubin AST ALT Alkaline Phosphatase Total Protein Albumin Triglycerides Cholesterol LDL Cholesterol, Calc VLDL Cholesterol, Calc HDL Cholesterol Cholesterol/HDL Ratio Urine Color Urine Appearance Urine pH Ur Specific [place] Urine Protein Urine Glucose (UA) Urine Ketones Urine Blood Urine Nitrite Urine Bilirubin Urine Urobilinogen Ur Leukocyte Esterase Urine WBC (Auto) Urine RBC (Auto) U Hyaline Cast (Auto) U Epithel Cells (Auto) Urine Bacteria (Auto) Granular Casts Ur Random Creatinine wound cx, right arm - staph, speciation pending PG Care Time/CCT Total # of Minutes Spent Total Time Spent with Patient: Total time spent is greater than 50% in coordination of care (as documented) at patient's floor/unit and/or counseling patient: Coding Level of Care Code 47122 Subseq Hosp Care Lvl 3 Diagnoses Sepsis A41.9 Metabolic encephalopathy G93.41 Cellulitis L03.113 Laterality: right Site of cellulitis: extremity Site of cellulitis of extremity: upper extremity Abscess of forearm, right L02.413 PRATIK (acute kidney injury) N17.9 CKD (chronic kidney disease), stage III N18.32 Chronic kidney disease stage 3 subtype: stage 3b (GFR 30-44) Trigeminal neuralgia G50.0 COPD (chronic obstructive pulmonary disease) J44.9 COPD type: unspecified COPD Aneurysm of abdominal aorta I71.4 Presence of rupture: without rupture Aneurysm of right internal iliac artery I72.3 Acid reflux disease K21.9 Esophagitis presence: esophagitis presence not specified Renal cyst N28.1 BPH (benign prostatic hyperplasia) N40.0 DVT prophylaxis Z29.9 (1) CKD (chronic kidney disease), stage III Chronic kidney disease stage 3 subtype: stage 3b (GFR 30-44) Qualified Code(s): N18.32 - Chronic kidney disease, stage 3b (2) Aneurysm of abdominal aorta Presence of rupture: without rupture Qualified Code(s): I71.4 - Abdominal aortic aneurysm, without rupture (3) Cellulitis Laterality: right Site of cellulitis: extremity Site of cellulitis of extremity: upper extremity Qualified Code(s): L03.113 - Cellulitis of right upper limb (4) COPD (chronic obstructive pulmonary disease) COPD type: unspecified COPD Qualified Code(s): J44.9 - Chronic obstructive pulmonary disease, unspecified (5) Acid reflux disease Esophagitis presence: esophagitis presence not specified Qualified Code(s): K21.9 - Gastro-esophageal reflux disease without esophagitis
--- NOTE | 2020-11-24 14:37 | Surgery Consultation ---
Date of Consultation November 24, 2020 Assessment & Plan (1) Cellulitis of forearm, right: I discussed the situation with the patient and I recommended that the patient will need wide debridement of this area in the operating room and we will plan to do it tomorrow with the intent of packing the area once all the necrotic material has been removed and probably place a VAC system once the wound cleans up The patient is on Plavix and Xarelto he has significant vascular pathology that I would not stop any of anticoagulation at this time We will keep the patient n.p.o. after midnight depending on his mental status he may be able to sign his consent or we will have to turn to family members who may have power of compliance attorney to give us permission History of Present Illness Reason for Consultation: Draining wound to the right forearm Attending Physician: Alfredo Gipson History of Present Illness We were asked to see the patient by Dr. Wynn regarding this gentleman right forearm abscess and cellulitis At the present time the patient is sitting on the side of the bed without any complaints he appears alert fairly coherent stating that may have had this for about 2 or 3 days I am not sure if he picked at it or not but it progressively got worse there and his decided to come in and be evaluated Allergies Allergy/AdvReac Type Severity Reaction Status Date / Time Penicillins Allergy Severe SHOCK Verified 11/23/20 11:15 aspirin Allergy Unknown Swelling Verified 11/23/20 11:15 Home Medications Medication Instructions Recorded Confirmed Type garlic 500 mg capsule 500 mg PO DAILY #30 cap 03/09/19 11/23/20 Rx multivitamin 1 tab PO DAILY #30 tab 03/09/19 11/23/20 Rx ipratropium 20 mcg-albuterol 100 1 puffs INHALATION QID PRN gm 07/07/19 11/23/20 History mcg/actuation mist for inhalation rivaroxaban 20 mg tablet 20 mg PO QAM tab 07/07/19 11/23/20 History tiotropium bromide 18 mcg capsule 1 cap INHALATION DAILY puffs 07/07/19 11/23/20 History with inhalation device tamsulosin 0.4 mg capsule 0.4 mg PO DAILY cap 09/21/19 11/23/20 History clopidogrel 75 mg PO QAM 05/27/20 11/23/20 History esomeprazole magnesium [Nexium] 20 mg PO DAILY 05/27/20 11/23/20 History lamotrigine 150 mg tablet 150 mg PO BID #60 tab 08/15/20 11/23/20 Rx gabapentin 600 mg tablet 600 mg PO BID #180 tab 09/23/20 11/23/20 Rx diclofenac sodium 1 % topical gel 4 g TOPICAL QID PRN #150 g 11/05/20 11/23/20 Rx doxepin 25 mg capsule 25 mg PO BID #180 cap 11/08/20 11/23/20 Rx bee pollen 550 mg PO DAILY 11/16/20 11/23/20 History Patient History Medical History (Updated 11/23/20 @ 16:16 by Francisco Maradiaga M.D.) Absent foot pulse Acute kidney injury Acute metabolic encephalopathy Aspiration pneumonia Hyponatremia Incarcerated right inguinal hernia Pneumonia Sensorineural hearing loss Surgical History H/O fasciotomy H/O tooth extraction History of inguinal hernia repair Hx of shoulder surgery S/P vascular surgery 06/26/19 right superficial femoral artery cutdown, RLE angiogram, right popliteal artery aneurysm excision with viabahn stent graft- Dr. Ryder Roman Status post ear surgery Family History Mother Myocardial infarction Other Family history non-contributory Denies family history of Ovarian cancer Prostate cancer Breast cancer Colorectal cancer Social History Smoking Status: Never smoker Second Hand Exposure: Yes; Hx Alcohol Use: No Hx Substance Use: No Preferred Language: Spanish Communication Ability: Effective Visual Impairment: No Limitations Hearing Ability: Hard of Hearing [employer] Required: No Beliefs That Will Affect Care: None marital status: Current Living Situation: Spouse current occupational status: retired Feels Safe at Home: Yes Safety Concerns: Feels Safe At This Time caffeine: Yes Dental Care, Regularly: Yes Physical Activity Frequency: Daily Seatbelt Use: always Sunscreen Use: No Assistive Devices: None Physical Exam Physical Exam: Patient is moderately alert today after having discussed with Dr. 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
[2020-11-24] MEDS: ACETAMINOPHEN 325 MG TAB PO PRN (17:13)
[2020-11-25] MEDS: oxyCODONE HCL IR 5 MG TAB (IMMEDIATE RELEASE) PO PRN (01:10)
[2020-11-25] MEDS: MoRPHine SULFATE 2 MG/ML CARP IV PRN ×2 (03:36→07:32)
[2020-11-25] MEDS: ACETAMINOPHEN 325 MG TAB PO PRN (06:36)
[2020-11-25 06:54] LABS: Calcium 9.8 mg/dl (8.5-10.1); Creatinine Clr Calc Pharmacy 34.6 ml/min; Est GFR (African American) 44.2; Est GFR (Non-African American) 38.2; Potassium 3.7 mmol/L (3.5-5.1)
[2020-11-25] MEDS: MULTIVITAMIN TAB PO SCH (08:16)
[2020-11-25] MEDS: TAMSULOSIN HCL 0.4 MG CAP PO SCH (08:16)
[2020-11-25] MEDS: ADVANCED PROBIOTIC 1250 MG CAPSULE PO SCH (08:16)
[2020-11-25] MEDS: PANTOprazole 40 MG TAB PO SCH (08:16)
[2020-11-25] MEDS: lamoTRIgine 100 MG TAB PO SCH ×2 (08:16→21:27)
[2020-11-25] MEDS: UMECLIDINIUM BROMIDE 62.5MCG/BLISTER 7 PUFFS/INHALER INH SCH (08:19)
[2020-11-25] MEDS: VANCOMYCIN HCL 1,250 MG in SODIUM CHLORIDE 0.9% 250 ML IV SCH (08:27)
--- NOTE | 2020-11-25 09:45 | Anesthesiology Consultation ---
Date of Service November 25, 2020 Assessment & Plan (1) Encounter for pre-operative examination: (2) Metabolic encephalopathy: (3) Sepsis: History Surgery Operation Date: 11/25/20 11:40 Proposed Procedures p Right Forearm Debridement of Necrotic Abscess - Delvis Gale MD Height/Weight Height: 5 ft 7 in Weight: 86.4 kg Allergies Allergy/AdvReac Type Severity Reaction Status Date / Time Penicillins Allergy Severe SHOCK Verified 11/23/20 11:15 aspirin Allergy Unknown Swelling Verified 11/23/20 11:15 Medications Home Medications Medication Instructions Recorded Confirmed Last Taken garlic 500 mg capsule 500 mg PO DAILY #30 cap 03/09/19 11/23/20 11/23/20 multivitamin 1 tab PO DAILY #30 tab 03/09/19 11/23/20 11/23/20 ipratropium 20 mcg-albuterol 100 1 puffs INHALATION QID PRN gm 07/07/19 11/23/20 Unknown mcg/actuation mist for inhalation rivaroxaban 20 mg tablet 20 mg PO QAM tab 07/07/19 11/23/20 11/23/20 tiotropium bromide 18 mcg capsule 1 cap INHALATION DAILY puffs 07/07/19 11/23/20 11/23/20 with inhalation device tamsulosin 0.4 mg capsule 0.4 mg PO DAILY cap 09/21/19 11/23/20 11/23/20 clopidogrel 75 mg PO QAM 05/27/20 11/23/20 11/23/20 esomeprazole magnesium [Nexium] 20 mg PO DAILY 05/27/20 11/23/20 11/23/20 lamotrigine 150 mg tablet 150 mg PO BID #60 tab 08/15/20 11/23/20 11/23/20 gabapentin 600 mg tablet 600 mg PO BID #180 tab 09/23/20 11/23/20 11/23/20 diclofenac sodium 1 % topical gel 4 g TOPICAL QID PRN #150 g 11/05/20 11/23/20 Unknown doxepin 25 mg capsule 25 mg PO BID #180 cap 11/08/20 11/23/20 11/23/20 bee pollen 550 mg PO DAILY 11/16/20 11/23/20 11/23/20 Active Medications Generic Name Dose Route Start Last Admin Trade Name Freq PRN Reason Stop Dose Admin Acetaminophen 650 mg 11/23/20 14:58 11/25/20 06:36 Acetaminophen 325 Mg Tab PO 12/23/20 14:57 650 mg Q4H PRN Administration pain/fever Clopidogrel Bisulfate 75 mg 11/24/20 09:00 11/24/20 07:46 Clopidogrel Bisulfate 75 Mg Tab PO 12/24/20 08:59 75 mg QAM CHIP Administration Doxepin HCl 25 mg 11/23/20 21:00 11/24/20 20:56 Doxepin Hcl 25 Mg Capsule PO 12/23/20 20:59 Not Given BID CHIP Gabapentin 600 mg 11/23/20 21:00 11/24/20 20:56 Gabapentin 600 Mg Tab PO 12/23/20 20:59 Not Given BID CHIP Ceftriaxone Sodium 2,000 mg/ 70 mls @ 100 mls/hr 11/24/20 12:00 11/24/20 12:53 Dextrose IV 11/30/20 11:59 Infused Q24H CHIP Infusion Protocol Vancomycin HCl 1,250 mg/ 275 mls @ 200 mls/hr 11/24/20 09:00 11/25/20 08:27 Sodium Chloride IV 12/01/20 08:59 200 mls/hr DAILY CHIP Administration Lactobacillus Acidoph/Casei/Rhamnos 2 cap 11/24/20 09:30 11/25/20 08:16 Advanced Probiotic 1250 Mg Capsule PO 12/24/20 09:29 2 cap DAILY CHIP Administration Lamotrigine 150 mg 11/23/20 21:00 11/25/20 08:16 Lamotrigine 100 Mg Tab PO 12/23/20 20:59 150 mg BID CHIP Administration Morphine Sulfate 2 mg 11/23/20 17:35 11/25/20 07:32 Morphine Sulfate 2 Mg/Ml Carp IV 12/07/20 17:34 2 mg Q4 PRN Administration Pain Multivitamins 1 tab 11/24/20 09:00 11/25/20 08:16 Multivitamin Tab PO 12/24/20 08:59 1 tab DAILY CHIP Administration Oxycodone HCl 5 mg 11/23/20 17:35 11/25/20 01:10 Oxycodone Hcl Ir 5 Mg Tab (Immediate Release) PO 12/07/20 17:34 5 mg Q6H PRN Administration Moderate Pain Pantoprazole Sodium 40 mg 11/24/20 09:00 11/25/20 08:16 Pantoprazole 40 Mg Tab PO 12/24/20 08:59 40 mg DAILY CHIP Administration Rivaroxaban 20 mg 11/24/20 09:00 11/24/20 07:47 Rivaroxaban 20 Mg Tab PO 12/24/20 08:59 20 mg QAM CHIP Administration Tamsulosin HCl 0.4 mg 11/24/20 09:00 11/25/20 08:16 Tamsulosin Hcl 0.4 Mg Cap PO 12/24/20 08:59 0.4 mg DAILY CHIP Administration Umeclidinium [place] 1 puffs 11/24/20 09:00 11/25/20 08:19 Umeclidinium [place] 62.5mcg/Blister 7 Puffs/Inhaler INH 12/24/20 08:59 1 puffs DAILY CHIP Administration NPO Date Last Intake of Fluids: 11/24/20 Time Last Intake of Fluids: 23:59 Date Last Intake of Solids: 11/24/20 Time Last Intake of Solids: 23:59 Past Medical History Medical History (Updated 11/25/20 @ 09:50 by Julia Boyd MD) Abscess of forearm, right Absent foot pulse Acute kidney injury Acute metabolic encephalopathy Aneurysm of abdominal aorta Aspiration pneumonia Carotid artery narrowing Cellulitis of forearm, right COPD (chronic obstructive pulmonary disease) will continue home meds. 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 Ryder Roman Status post ear surgery Social History Smoking Status: Never smoker tobacco type: cigarettes Hx Alcohol Use: No Alcohol type: beer alcohol intake frequency: holidays/special occasions only Hx Substance Use: No Physical Exam Vital Signs Last Vital Signs Temp 36.5 C 11/25/20 07:35 Pulse 68 11/25/20 07:35 Resp 16 11/25/20 07:35 BP 162/87 H 11/25/20 07:35 Pulse Ox 92 11/25/20 07:35 Testing Laboratory Results 11/24/20 06:13 11/25/20 06:00 PT 11.5 Seconds (9.0-12.0) 11/24/20 06:13 INR 1.1 (0.9-1.1) 11/24/20 06:13 Urine Color Dark Yellow 11/23/20 17:00 Urine Appearance Cloudy (Clear) A 11/23/20 17:00 Urine pH 5.0 (4.5-7.5) 11/23/20 17:00 Ur Specific [place] 1.019 (1.000-1.030) 11/23/20 17:00 Urine Protein Trace (Negative) H 11/23/20 17:00 Urine Glucose (UA) Negative (Negative) 11/23/20 17:00 Urine Ketones Negative (Negative) 11/23/20 17:00 Urine Nitrite Negative (Negative) 11/23/20 17:00 Ur Leukocyte Esterase Trace (Negative) H 11/23/20 17:00 Urine WBC (Auto) 5-10 /hpf (0-5) H 11/23/20 17:00 Urine RBC (Auto) 10-30 /hpf (0-4) H 11/23/20 17:00 U Hyaline Cast (Auto) 10-30 /lpf (0-5) H 11/23/20 17:00 U Epithel Cells (Auto) >30 /lpf (0-5) H 11/23/20 17:00 Urine Bacteria (Auto) Negative (Negative) 11/23/20 17:00 11/23/20 10:15 Gram Stain - Final Arm,Right Wound Culture - Final Staphylococcus aureus 11/23/20 10:02 Aerobic Blood Culture - Preliminary Blood No growth in Aerobic bottle after 24 hours. Anaerobic Blood Culture - Preliminary No growth in Anaerobic bottle after 24 hours. 11/23/20 10:37 Aerobic Blood Culture - Preliminary Blood No growth in Aerobic bottle after 24 hours. Anaerobic Blood Culture - Preliminary No growth in Anaerobic bottle after 24 hours. 11/25/20 08:15 POC Glucose 92 Electrocardiogram Date: 11/16/20 Poor data quality, interpretation may be adversely affected Sinus rhythm with 1st degree A-V block with frequent Premature ventricular complexes Abnormal ECG When compared with ECG of 13-SEP-2018 07:44, Premature ventricular complexes are now Present Confirmed by David Romero ([id number]) on 11/17/2020 11:22:17 AM Chest X-Ray Date: 11/16/20 Improved aeration within the lung bases. Otherwise, no acute process within the chest.
--- NOTE | 2020-11-25 10:27 | History & Physical Bridge Note ---
Date of Service November 25, 2020 History & Physical Bridge Note I have examined the patient, reviewed the History & Physical and in the interval since the performance of the History & Physical I have noted the following changes of clinical significance: no changes noted Talked with son Lalo and had verbal consent over the phone nurse witness we will proceed with debridement of the right forearm as planned risk and complication had explained to the patient's son the patient was marked and case discussed with anesthesia
[2020-11-25] MEDS ORDERED: DEXAMETHASONE SOD INJ 4 MG/ML VIAL ONE (10:35)
[2020-11-25] MEDS ORDERED: LIDOCAINE HCL 2% 2 ML VIAL/AMP(20MG/ML) INFIL ONE (10:35)
[2020-11-25] MEDS ORDERED: PROPOFOL IV EMULSION 10 MG/ML 20 ML VIAL IV ONE (10:35)
[2020-11-25] MEDS ORDERED: ONDANSETRON INJ 2 MG/ML 2 ML VIAL ONE (10:35)
[2020-11-25] MEDS ORDERED: fentaNYL citrate 100 MCG/2 ML VIAL ONE (10:36)
[2020-11-25] MEDS: RIVAROXABAN 20 MG TAB PO SCH ×2 (10:49→13:39)
[2020-11-25] MEDS: CLOPIDOGREL BISULFATE 75 MG TAB PO SCH ×2 (10:49→13:40)
[2020-11-25] MEDS ORDERED: SUCCINYLCHOLINE 100MG/5ML SYR IV ONE (11:42)
[2020-11-25] MEDS ORDERED: ePHEDrine sulfate 50 MG/ML SYR ONE (11:47)
[2020-11-25] MEDS ORDERED: GELATIN SPONGE SZ 100 ONE (11:53)
--- NOTE | 2020-11-25 11:59 | Post Operative Brief Note ---
PG Immediate Post Op with CF Date of Surgery November 25, 2020 Pre & Post Diagnosis Operation Date: 11/25/20 11:40 Pre-Op Diagnosis: right forearm necrotic tissue Post-Op Diagnosis: right forearm necrotic tissue I identified the patient and participated in the time-out.: Yes Procedure Operation Date: 11/25/20 11:40 Actual Procedures p Right Forearm Debridement of Necrotic Abscess(Right) - Delvis Gale MD Surgeon Delvis Gale MD Kil[employer]eder eldon rivera Estimated Blood Loss 50 Findings Consistent with Post-Op Diagnosis Specimens Specimen Description: Culture 1: Right Forearm Wound Culture Abscess Cavity
--- NOTE | 2020-11-25 12:07 | Operative Report ---
PG Post Operative Report Pre & Post Diagnosis Operation Date: 11/25/20 11:40 Pre-Op Diagnosis: right forearm necrotic tissue Post-Op Diagnosis: right forearm necrotic tissue I identified the patient and participated in the time-out.: Yes Procedure Operation Date: 11/25/20 11:40 Actual Procedures p Right Forearm Debridement of Necrotic Abscess(Right) - Delvis Gale MD Patient was brought into the operating theater general endotracheal anesthesia right arm was placed on an armboard properly draped with Betadine scrub a solution timeout was had patient was identified systemic antibiotics had been on board use a cautery set on coagulation we excised this multiple area of fistulous track in the right dorsal forearm we initially used a 4 x 4 to free up what with the necrotic skin in the undersurface revealed about a 10 x 10 cm area multiple fistulous tract with purulent drainage we elliptically excised the whole tissue down to the muscular fascia controlling the bleeding with sutures mostly in the inferior aspect of the forearm coming through some venous plexus we used 2-0 silk to control this centimeters electrocautery circumferentially around where hemostasis was excellent when we were finished there was one area with a significant purulent drainage in this tissue that were removed we took cultures and for aerobes and anaerobes I elected to place L foam cutting it out appropriately to fill in the defect that we excised placing a Xeroform gauze on top of it 4 x 4 ABD and a Kerlix 4 inch Estimated blood loss approximately 50 cc (patient was on Plavix and Xarelto at which did not hold due to his significant peripheral vascular disease specimen was sent for cultures and pathology procedure was tolerated well addendum Dale rivera was present throughout the whole case and helped with retraction exposure and dressing application Surgeon Delvis Gale MD Change Lead eldon rivera Estimated Blood Loss 50 Findings Consistent with Post-Op Diagnosis Specimens 10cm x 10cm skin to muscular fascia necrotic tissue with multiple abscess sinus tracts Description of Procedure merda I attest to the content of the Intraoperative Record and any orders documented therein. Any exceptions are noted below.
[2020-11-25] MEDS ORDERED: fentaNYL citrate 100 MCG/2 ML VIAL IV PRN (12:08)
[2020-11-25] MEDS ORDERED: ONDANSETRON INJ 2 MG/ML 2 ML VIAL IV PRN (12:08)
[2020-11-25] MEDS ORDERED: ePHEDrine sulfate 50 MG/ML AMP IV PRN (12:08)
[2020-11-25] MEDS ORDERED: ATROPINE SULFATE 0.1 MG/ML 10ML SYR IV PRN (12:08)
[2020-11-25] MEDS: cefTRIAXone SODIUM 2,000 MG in DEXTROSE 5% 50 ML IV SCH (13:15)
[2020-11-25] MEDS ORDERED: NSS + 20MEQ KCL 20 MEQ/1,000 ML BAG IV SCH (15:15)
--- NOTE | 2020-11-25 18:43 | Hospitalist Progress Note ---
Date of Service November 25, 2020 Assessment & Plan (1) Sepsis: 2nd to right arm staph cellulitis with necrotic abscess. sepsis resolved. blood cx's negative. wound cx w/ MSSA - stop vanco, cont rocephin. (2) Metabolic encephalopathy: 2nd to sepsis from right arm infection. effects from general anesthesia also likely playing a role. supportive care. avoid benzos/sedatives. (3) Cellulitis: RUE. 2nd MSSA. Large area of necrotic skin with underlying purulence - s/p debridement and wash-out/removal of fistulous tract by Dr Gale today. Cont IV rocephin. Stop vanco. Will need wound care consultation tomorrow. Wound vac?? Appreciate gen surg assistance. (4) Abscess of forearm, right: 2nd to MSSA. see above. pain control. local dressings and/or wound vac. gen surg assistance much appreciated. (5) PRATIK (acute kidney injury): sepsis-associated ATN. Initial Cr 2.3, now 1.6 Should cont to improve. BMP am. (6) CKD (chronic kidney disease), stage III: baseline Cr 1.4 (7) Trigeminal neuralgia: Continue Gabapentin, Doxepin and lamictal. Consider adding afternoon dose of gabapentin. Pain meds for right arm should help trigeminal neuralgia as well. 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 he ate post-surgery without difficulty. he seemed confused during my visit and he was talking senselessly during the time I was there. I asked him if he had pain in the arm and he reported yes. I was able to make out that he "would want medication for pain when they touch it" [the wound]. Review of Systems Constitutional: no fever, no chills and no anorexia Respiratory: no cough and no dyspnea Cardiovascular: no chest pain Gastrointestinal: no abdominal pain, no nausea and no vomiting Physical Exam Constitutional: + altered mental status; no acute distress ENMT: external ear and nose normal, oropharynx normal Respiratory: normal respiratory effort, lungs clear to auscultation Cardiovascular: Rate/Rhythm: regular rate and regular rhythm Heart Sounds: normal S1 and normal S2; no murmur Vessels: posterior tibial pulses present and dorsalis pedis pulses present; no JVD Extremities: no edema Gastrointestinal (Abdomen): normal bowel sounds, soft, nontender, no hepatosplenomegaly Musculoskeletal: right arm - dressings in place over mid-forearm; these were left intact. the erythema from cellulitis just inferior to right elbow is improved. the erythema from cellulitis just proximal to right wrist is improved. right elbow and right wrist with full active/passive ROM. Psychiatric: Orientation: alert, oriented to person and oriented to place; + not oriented to time Results & Data Results & Data ([facility]) Vital Signs (Past 12 Hours) Vital Signs Temp Pulse Pulse Pulse Resp BP Pulse Ox 11/25/20 16:25 36.3 C L 86 16 116/70 92 11/25/20 15:13 36.7 C 85 18 109/69 91 11/25/20 14:14 36.5 C 95 H 18 99/61 L 91 11/25/20 13:40 36.6 C 84 18 127/76 90 11/25/20 13:10 36.7 C 82 14 144/76 H 92 11/25/20 12:50 36.8 C 82 14 127/73 95 11/25/20 12:40 83 14 164/93 H 95 11/25/20 12:30 86 15 149/77 H 98 11/25/20 12:20 88 12 156/97 H 100 11/25/20 12:13 36 C L 94 H 14 152/90 H 99 11/25/20 10:19 36.9 C 75 20 160/92 H 92 11/25/20 07:35 36.5 C 68 16 162/87 H 92 Laboratory Results Laboratory Results - last 24 hr 11/24/20 11/25/20 11/25/20 21:13 06:00 08:15 Sodium 140 Potassium 3.7 Chloride 105 Carbon Dioxide 26 Anion Gap 9.0 BUN 21 H Creatinine 1.61 H Est Cr Clr Drug Dosing 34.6 Est GFR ( Amer) 44.2 Est GFR (Non-Af Amer) 38.2 BUN/Creatinine Ratio 13.0 Glucose 88 POC Glucose 125 H 92 Calcium 9.8 11/25/20 11/25/20 11/25/20 10:32 12:49 17:14 Sodium Potassium Chloride Carbon Dioxide Anion Gap BUN Creatinine Est Cr Clr Drug Dosing Est GFR ( Amer) Est GFR (Non-Af Amer) BUN/Creatinine Ratio Glucose POC Glucose 90 90 124 H Calcium wound culture - MSSA blood cx's negative to date wound culture - intra-op pending PG Care Time/CCT Total # of Minutes Spent Total Time Spent with Patient: Total time spent is greater than 50% in coordination of care (as documented) at patient's floor/unit and/or counseling patient: Coding Level of Care Code 27763 Subseq Hosp Care Lvl 3 Diagnoses Sepsis A41.01; R65.20; N17.0 Sepsis type: methicillin susceptible Staphylococcus aureus Sepsis acute organ dysfunction status: with acute organ dysfunction Severe sepsis acute organ dysfunction type: acute renal failure Acute renal failure type: with acute tubular necrosis Severe sepsis shock status: without septic shock Metabolic encephalopathy G93.41 Cellulitis L03.113 Laterality: right Site of cellulitis: extremity Site of cellulitis of extremity: upper extremity Abscess of forearm, right L02.413 PRATIK (acute kidney injury) N17.9 CKD (chronic kidney disease), stage III N18.32 Chronic kidney disease stage 3 subtype: stage 3b (GFR 30-44) Trigeminal neuralgia G50.0 COPD (chronic obstructive pulmonary disease) J44.9 COPD type: unspecified COPD Aneurysm of abdominal aorta I71.4 Presence of rupture: without rupture Aneurysm of right internal iliac artery I72.3 Acid reflux disease K21.9 Esophagitis presence: esophagitis presence not specified Renal cyst N28.1 BPH (benign prostatic hyperplasia) N40.0 DVT prophylaxis Z29.9 (1) CKD (chronic kidney disease), stage III Chronic kidney disease stage 3 subtype: stage 3b (GFR 30-44) Qualified Code(s): N18.32 - Chronic kidney disease, stage 3b (2) Aneurysm of abdominal aorta Presence of rupture: without rupture Qualified Code(s): I71.4 - Abdominal aortic aneurysm, without rupture (3) Cellulitis Laterality: right Site of cellulitis: extremity Site of cellulitis of extremity: upper extremity Qualified Code(s): L03.113 - Cellulitis of right upper limb (4) Sepsis Sepsis type: methicillin susceptible Staphylococcus aureus Sepsis acute organ dysfunction status: with acute organ dysfunction Severe sepsis acute organ dysfunction type: acute renal failure Acute renal failure type: with acute tubular necrosis Severe sepsis shock status: without septic shock Qualified Code(s): A41.01 - Sepsis due to Methicillin susceptible Staphylococcus aureus; R65.20 - Severe sepsis without septic shock; N17.0 - Acute kidney failure with tubular necrosis (5) COPD (chronic obstructive pulmonary disease) COPD type: unspecified COPD Qualified Code(s): J44.9 - Chronic obstructive pulmonary disease, unspecified (6) Acid reflux disease Esophagitis presence: esophagitis presence not specified Qualified Code(s): K21.9 - Gastro-esophageal reflux disease without esophagitis
[2020-11-26] MEDS: oxyCODONE HCL IR 5 MG TAB (IMMEDIATE RELEASE) PO PRN ×2 (03:00→16:34)
--- NOTE | 2020-11-26 07:33 | Anesthesiology Progress Note ---
Date of Service November 26, 2020 Anesthesia Post Procedure Vital Signs Vital Signs: Temp Pulse Pulse Pulse Resp BP Pulse Ox 11/26/20 07:05 36.6 C 89 16 99/61 L 92 11/26/20 03:30 36.7 C 82 16 111/83 91 11/25/20 21:56 36.7 C 84 16 93/57 L 90 11/25/20 19:14 36.7 C 100 H 16 99/59 L 91 11/25/20 16:25 36.3 C L 86 16 116/70 92 11/25/20 15:13 36.7 C 85 18 109/69 91 11/25/20 14:14 36.5 C 95 H 18 99/61 L 91 11/25/20 13:40 36.6 C 84 18 127/76 90 11/25/20 13:10 36.7 C 82 14 144/76 H 92 11/25/20 12:50 36.8 C 82 14 127/73 95 11/25/20 12:40 83 14 164/93 H 95 11/25/20 12:30 86 15 149/77 H 98 11/25/20 12:20 88 12 156/97 H 100 11/25/20 12:13 36 C L 94 H 14 152/90 H 99 11/25/20 10:19 36.9 C 75 20 160/92 H 92 11/25/20 07:35 36.5 C 68 16 162/87 H 92 Pain Intensity Right Neck: Pain Intensity: 0 Notes Mental Status: alert / awake / arousable and participated in evaluation Patient Amnestic to Procedure: Yes Nausea / Vomiting: adequately controlled Pain: adequately controlled Airway Patency, RR, SpO2: stable & adequate BP & HR: stable & adequate Hydration State: stable & adequate Anesthetic Complications: no major complications apparent and Pt Satisfied with anesthetic care
[2020-11-26 07:34] LABS: Calcium 9.5 mg/dl (8.5-10.1); Creatinine Clr Calc Pharmacy 38.7 ml/min; Est GFR (African American) 50.6; Est GFR (Non-African American) 43.7; Potassium 4.3 mmol/L (3.5-5.1)
[2020-11-26] MEDS: lamoTRIgine 100 MG TAB PO SCH ×2 (07:43→20:28)
[2020-11-26] MEDS: TAMSULOSIN HCL 0.4 MG CAP PO SCH (07:43)
[2020-11-26] MEDS: PANTOprazole 40 MG TAB PO SCH (07:44)
[2020-11-26] MEDS: ADVANCED PROBIOTIC 1250 MG CAPSULE PO SCH (07:44)
[2020-11-26] MEDS: CLOPIDOGREL BISULFATE 75 MG TAB PO SCH (07:44)
[2020-11-26] MEDS: MULTIVITAMIN TAB PO SCH (07:44)
[2020-11-26] MEDS: RIVAROXABAN 20 MG TAB PO SCH (07:44)
[2020-11-26] MEDS: UMECLIDINIUM BROMIDE 62.5MCG/BLISTER 7 PUFFS/INHALER INH SCH (07:46)
[2020-11-26] MEDS ORDERED: VANCOMYCIN TROUGH SCH (08:30)
[2020-11-26] MEDS: cefTRIAXone SODIUM 2,000 MG in DEXTROSE 5% 50 ML IV SCH (11:45)
[2020-11-26] MEDS: MoRPHine SULFATE 2 MG/ML CARP IV PRN ×2 (14:29→16:59)
[2020-11-26] MEDS: ACETAMINOPHEN 325 MG TAB PO PRN ×2 (14:29→19:51)
--- NOTE | 2020-11-26 15:34 | Surgery Progress Note ---
Date of Service November 26, 2020 Assessment & Plan (1) Cellulitis of forearm, right: POD 1 debridement right forearm anticipate wound vac placement tomorrow Admission and Anticipated Discharge Date Admission Date: November 23, 2020 Subjective c/o pain related to trigeminal neuralgia, denies arm pain, seen by wound care today and dressing changed Physical Exam Gastrointestinal (Abdomen): dressing clean, dry Results & Data ([facility]) Vital Signs (Past 12 Hours) Vital Signs Temp Pulse Resp BP Pulse Ox 11/26/20 15:22 37.3 C 90 30 H 171/92 H 90 11/26/20 11:19 36.8 C 72 16 115/64 92 11/26/20 07:05 36.6 C 89 16 99/61 L 92 PG Care Time/CCT Total # of Minutes Spent Total Time Spent with Patient: Total time spent is greater than 50% in coordination of care (as documented) at patient's floor/unit and/or counseling patient: Coding Level of Care Code None Diagnoses Cellulitis of forearm, right L03.113
[2020-11-26] MEDS ORDERED: GABAPENTIN 300 MG CAP PO ONE (16:00)
[2020-11-26] MEDS ORDERED: DOXEPIN HCL 25 MG CAPSULE PO ONE (16:00)
[2020-11-26] MEDS ORDERED: HYDROmorphone INJ 0.5 MG/0.5 ML SYR IV STA (17:16)
[2020-11-26] MEDS ORDERED: HYDROmorphone INJ 0.5 MG/0.5 ML SYR IV PRN (17:36)
[2020-11-26] MEDS: GABAPENTIN 600 MG TAB PO SCH (20:29)
[2020-11-26] MEDS: DOXEPIN HCL 25 MG CAPSULE PO SCH (20:29)
--- NOTE | 2020-11-26 20:32 | Hospitalist Progress Note ---
Date of Service November 26, 2020 Assessment & Plan (1) Sepsis: 2nd to right arm staph cellulitis with necrotic abscess. sepsis resolved. blood cx's negative. wound cx w/ MSSA - cont rocephin. would Rx with rocephin while hospitalized, then transition to cephalosporin at d/c, but [facility] for their recommendations on IV vs PO antibiotics given the severity of his infection. (2) Metabolic encephalopathy: 2nd to sepsis from right arm infection. toxic effects from anesthesia and pain meds also likely contributing. at baseline he seems to have mild cognitive impairment? supportive care. avoid benzos/sedatives. (3) Cellulitis: RUE. 2nd MSSA. Large area of necrotic skin with underlying purulence - s/p debridement and wash-out/removal of fistulous tract by Dr Gale - POD #1. Cont IV rocephin. Appreciate wound care consultation - likely to need Wound vac?? Appreciate gen surg assistance. (4) Abscess of forearm, right: 2nd to MSSA. see above. pain control. local dressings and/or wound vac. gen surg assistance much appreciated wound nurse assistance appreciated. (5) PRATIK (acute kidney injury): sepsis-associated ATN. Initial Cr 2.3, now 1.4 - which is his chronic baseline. BMP am. (6) CKD (chronic kidney disease), stage III: baseline Cr 1.4 (7) Trigeminal neuralgia: Continue Gabapentin, Doxepin and lamictal. Add 300mg of afternoon dose of gabapentin - if he can tolerate - as he has episodes of severe pain at home, and had such today. Neurology office notes indicate his trigeminal neuralgia is on left face, but he was grabbing the right face today. Follow this carefully. Pain meds for right arm should help trigeminal neuralgia as well. Follows with Dr Wood as outpatient - [facility] [place] Neurology. 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 Had presented with pulseless right foot at that time in 2019 Cont plavix, xarelto Ideally should be on statin (11) Acid reflux disease: PPI (12) Renal cyst: Numerous bilateral large cysts on imaging no Rx at this time has PRATIK but improving PRATIK unrelated to cysts (13) BPH (benign prostatic hyperplasia): cont flomax patient having urinary retention likely from his BPH if PVRs cont to be greater than 300cc then perform straight cath if he gets straight cathed and still has PVRs that high then ultimately will need mendez (14) DVT prophylaxis: jeffrelto updated pt's family (son, Lalo) by phone this evening Lalo is concerned that his father will pick at the wound vac at home Lalo stated that "dad is a filler picker" and picks at his skin alot I told Lalo we would let case management know about this need for placement after d/c ??? PT, OT yoli appreciated Admission and Anticipated Discharge Date Admission Date: November 23, 2020 Subjective Upon my arrival for rounds the patient was very uncomfortable. He was holding the right side of his head and shifting constantly in the bed. He was talking but it was difficult to understand him. He sat up and stated he needed to void. I helped him void into a urinal - he passed about 200cc. Nurses reported urinary frequency. We performed bladder scan - PVR was >300cc. Nurses had given Mr Cai a cool pack for his head. Morphine had been given for his pain (trigeminal neuralgia) but it seemed ineffective. Nursing had spoken to pt's and she reported that the patient has episodes of pain like this at home, often brought on by movement. Pt's right arm dressings today were changed and nursing reported the right arm was very clean. Eating well. Review of Systems Constitutional: no fever and no anorexia Respiratory: + cough and + dyspnea (When he is in pain from head pain ) Cardiovascular: no chest pain Gastrointestinal: no abdominal pain, no nausea and no vomiting Physical Exam Constitutional: + acute distress (Severe, 2nd to trigeminal neuralgia) and + altered mental status ENMT: external ear and nose normal, oropharynx normal Respiratory: normal respiratory effort, lungs clear to auscultation Auscultation: + diminished lung sounds (Bases) Cardiovascular: Rate/Rhythm: regular rate and regular rhythm Heart Sounds: normal S1 and normal S2; no murmur Vessels: posterior tibial pulses present and dorsalis pedis pulses present; no JVD Extremities: no edema Gastrointestinal (Abdomen): normal bowel sounds, soft, nontender, no hepatosplenomegaly Musculoskeletal: right elbow and right wrist - no signs of infection Skin: dressings intact to right forearm; the erythema above and below the dressings is again improved today Psychiatric: Orientation: alert, oriented to person and oriented to place; + not oriented to time Results & Data Results & Data ([facility]) Vital Signs (Past 12 Hours) Vital Signs Temp Pulse Resp BP Pulse Ox 11/26/20 15:22 37.3 C 90 30 H 171/92 H 90 11/26/20 11:19 36.8 C 72 16 115/64 92 Laboratory Results Laboratory Results - last 24 hr 11/26/20 11/26/20 11/26/20 05:53 08:19 12:03 Sodium 138 Potassium 4.3 D Chloride 106 Carbon Dioxide 23 Anion Gap 9.0 BUN 22 H Creatinine 1.44 H Est Cr Clr Drug Dosing 38.7 Est GFR ( Amer) 50.6 Est GFR (Non-Af Amer) 43.7 BUN/Creatinine Ratio 15.0 Glucose 119 H POC Glucose 107 H 89 Calcium 9.5 11/26/20 17:07 Sodium Potassium Chloride Carbon Dioxide Anion Gap BUN Creatinine Est Cr Clr Drug Dosing Est GFR ( Amer) Est GFR (Non-Af Amer) BUN/Creatinine Ratio Glucose POC Glucose 98 Calcium blood cx's neg wound cx, from OR - staph species (previous wound cx with MSSA) PG Care Time/CCT Total # of Minutes Spent Total Time Spent with Patient: Total time spent is greater than 50% in coordination of care (as documented) at patient's floor/unit and/or counseling patient: Coding Level of Care Code 41016 Subseq Hosp Care Lvl 3 Diagnoses Sepsis A41.01; R65.20; N17.0 Acute renal failure type: with acute tubular necrosis Sepsis acute organ dysfunction status: with acute organ dysfunction Sepsis type: methicillin susceptible Staphylococcus aureus Severe sepsis acute organ dysfunction type: acute renal failure Severe sepsis shock status: without septic shock Metabolic encephalopathy G93.41 Cellulitis L03.113 Laterality: right Site of cellulitis: extremity Site of cellulitis of extremity: upper extremity Abscess of forearm, right L02.413 PRATIK (acute kidney injury) N17.9 CKD (chronic kidney disease), stage III N18.32 Chronic kidney disease stage 3 subtype: stage 3b (GFR 30-44) Trigeminal neuralgia G50.0 COPD (chronic obstructive pulmonary disease) J44.9 COPD type: unspecified COPD Aneurysm of abdominal aorta I71.4 Presence of rupture: without rupture Aneurysm of right internal iliac artery I72.3 Acid reflux disease K21.9 Esophagitis presence: esophagitis presence not specified Renal cyst N28.1 BPH (benign prostatic hyperplasia) N40.0 DVT prophylaxis Z29.9 (1) CKD (chronic kidney disease), stage III Chronic kidney disease stage 3 subtype: stage 3b (GFR 30-44) Qualified Code(s): N18.32 - Chronic kidney disease, stage 3b (2) Aneurysm of abdominal aorta Presence of rupture: without rupture Qualified Code(s): I71.4 - Abdominal aortic aneurysm, without rupture (3) Cellulitis Laterality: right Site of cellulitis: extremity Site of cellulitis of extr emity: upper extremity Qualified Code(s): L03.113 - Cellulitis of right upper limb (4) Sepsis Acute renal failure type: with acute tubular necrosis Sepsis acute organ dysfunction status: with acute organ dysfunction Sepsis type: methicillin susceptible Staphylococcus aureus Severe sepsis acute organ dysfunction type: acute renal failure Severe sepsis shock status: without septic shock Qualified Code(s): A41.01 - Sepsis due to Methicillin susceptible Staphylococcus aureus; R65.20 - Severe sepsis without septic shock; N17.0 - Acute kidney failure with tubular necrosis (5) COPD (chronic obstructive pulmonary disease) COPD type: unspecified COPD Qualified Code(s): J44.9 - Chronic obstructive pulmonary disease, unspecified (6) Acid reflux disease Esophagitis presence: esophagitis presence not specified Qualified Code(s): K21.9 - Gastro-esophageal reflux disease without esophagitis
--- NOTE | 2020-11-26 20:56 | XRay Report ---
XR chest 2V PA/lateral HISTORY: cough, O2 sats low-normal; eval pneumonia COMPARISON: Chest 11/16/2020. FINDINGS: No pneumothorax. No pleural effusions. There are low lung volumes. The heart remains top no rmal in size. Stable prominence of the calcified aortic knob. Mild interstitial thickening persists. This is likely chronic. Increased markings within the left lung base. This favors atelectasis. A pneu monia could also have a similar appearance. Advanced degenerative changes within the right shoulder. IMPRESSION: 1. Low lung volumes with chronic interstitial thickening. 2. Increased markings at the left lung base which favor subsegmental atelectasis. A pneumonia could a lso have a similar appearance in the appropriate clinical setting. ACT 112: Negative or not required by law. Electronically signed by: Wing Forrest M.D. 11/26/2020 8:55 PM
[2020-11-27] MEDS ORDERED: dexAMETHasone 4 MG in SYRINGE 0 ML IV ONE (00:12)
--- NOTE | 2020-11-27 00:22 | Communication Note ---
Date of Service: November 27, 2020 Subjective: A code renetta was called and I came up to see the patient. They were in their wheelchair talking when I went into the room. He seemed confused and then slumped over in his wheelchair. He was put into his bed, a code mercedes was called but the patient did have a pulse, and was breathing. He was not very responsive but progressively became more responsive. Objective: We obtained a set of vitals with his bp: 170's systolic, HR: wnl, oxygen saturation: 95% and bs. Assessment/Plan: - Decadron 4 mg for trigeminal neuralgia - CT head ordered Resident Activity Tracking Resident Involvement: Resident Care Provided Care Provided: [facility] Medicine CBC Results Results Complete Blood Count Results: RBC 4.17 M/uL (4.7-6.1) L 11/24/20 WBC 9.58 K/uL (4.8-10.8) 11/24/20 Hgb 12.5 g/dL (14.0-18.0) L 11/24/20 Hct 37.2 % (42-52) L 11/24/20 Plt Count 159 K/uL (130-400) 11/24/20 Chemistry (BMP) Results BMP Results: Sodium 138 mmol/L (136-145) 11/26/20 Potassium 4.3 mmol/L (3.5-5.1) 11/26/20 Chloride 106 mmol/L (98-107) 11/26/20 BUN 22 mg/dl (7-18) H 11/26/20 Creatinine 1.44 mg/dl (0.6-1.4) H 11/26/20 Glucose 119 mg/dl (70-99) H 11/26/20
[2020-11-27] MEDS: oxyCODONE HCL IR 5 MG TAB (IMMEDIATE RELEASE) PO PRN ×3 (00:50→20:28)
[2020-11-27 06:51] LABS: Hematocrit (blood only) 35.7 % (42-52); Hemoglobin 12.2 g/dL (14.0-18.0); Mean Corpuscular Hemoglobin 30.2 pg (25-34); Mean Corpuscular Hgb Conc 34.2 g/dL (32-36); Mean Corpuscular Volume 88.4 fL (80-100); Mean Platelet Volume 9.3 fL (7.4-10.4); Platelet Count 186 K/uL (130-400); RDW Coefficient of Variation 13.6 % (11.5-14.5); RDW Standard Deviation 44.4 fL (36.4-46.3); Red Blood Count 4.04 M/uL (4.7-6.1); White Blood Count 5.39 K/uL (4.8-10.8)
--- NOTE | 2020-11-27 07:02 | Surgery Progress Note ---
Date of Service November 27, 2020 Assessment & Plan (1) Cellulitis of forearm, right: This point discharge the patient discretion of the primary service the patient should have a VAC system placed and follow in wound clinic as an outpatient with Dr. Jem Hancock general surgeon who sees patient wound clinic Admission and Anticipated Discharge Date Admission Date: November 23, 2020 Subjective Patient is laying in bed one-on-one which was reported he was agitated at one time during the night Physical Exam Physical Exam: Right forearm dressing is intact dry Results & Data ([facility]) Vital Signs (Past 12 Hours) Vital Signs Temp Pulse Resp BP Pulse Ox 11/26/20 21:57 36.9 C 76 16 120/72 94 PG Care Time/CCT Total # of Minutes Spent Total Time Spent with Patient: Total time spent is greater than 50% in coordination of care (as documented) at patient's floor/unit and/or counseling patient: Coding Level of Care Code None Diagnoses Cellulitis of forearm, right L03.113
--- NOTE | 2020-11-27 07:14 | CT Scan Report ---
CT OF THE HEAD WITHOUT CONTRAST CLINICAL HISTORY: Agitation. COMPARISON STUDY: Head CT November 16, 2020. CT DOSE: 1382.10 mGy.cm TECHNIQUE: Helical axial images of the head were obtained without IV contrast. Automated exposure con trol was utilized for the study. A dose lowering technique was utilized adhering to the principles o f ALARA. FINDINGS: This exam is compromised by motion artifact. No acute intracranial hemorrhage, midline shif t or mass effect is present. Ventricular system is normal. Basilar cisterns are patent. There are no extra-axial collections. There are no findings to suggest acute dural sinus thrombosis or acute rikki torial infarct. A left occipital craniectomy is unchanged in appearance. There is no acute calvarial fracture although sensitivity is diminished given motion artifact. IMPRESSION: Exam moderately compromised by motion artifact. No acute findings identified. ACT 112: Negative or not required by law. Electronically signed by: Andrew Carreno M.D. 11/27/2020 7:12 AM
[2020-11-27 07:26] LABS: BUN Creatinine Ratio 13.7 (10-20); Calcium 9.5 mg/dl (8.5-10.1); Creatinine Clr Calc Pharmacy 40.3 ml/min; Est GFR (African American) 53.3; Potassium 4.2 mmol/L (3.5-5.1)
[2020-11-27] MEDS: lamoTRIgine 100 MG TAB PO SCH ×2 (09:02→20:29)
[2020-11-27] MEDS: UMECLIDINIUM BROMIDE 62.5MCG/BLISTER 7 PUFFS/INHALER INH SCH (09:02)
[2020-11-27] MEDS: TAMSULOSIN HCL 0.4 MG CAP PO SCH (09:02)
[2020-11-27] MEDS: MULTIVITAMIN TAB PO SCH (09:04)
[2020-11-27] MEDS: CLOPIDOGREL BISULFATE 75 MG TAB PO SCH (09:05)
[2020-11-27] MEDS: GABAPENTIN 600 MG TAB PO SCH ×2 (09:05→20:28)
[2020-11-27] MEDS: ADVANCED PROBIOTIC 1250 MG CAPSULE PO SCH (09:05)
[2020-11-27] MEDS: DOXEPIN HCL 25 MG CAPSULE PO SCH ×2 (09:06→20:28)
[2020-11-27] MEDS: PANTOprazole 40 MG TAB PO SCH (09:06)
[2020-11-27] MEDS: RIVAROXABAN 20 MG TAB PO SCH (09:06)
[2020-11-27] MEDS: cefTRIAXone SODIUM 2,000 MG in DEXTROSE 5% 50 ML IV SCH (12:20)
--- NOTE | 2020-11-27 13:45 | Hospitalist Progress Note ---
Date of Service November 27, 2020 Assessment & Plan (1) Cellulitis of forearm, right: POD #[address] Gale Wound VAC placed today Sepsis is resolved Procalcitonin is within normal limits Currently on ceftriaxone (day #4) Discharged on oral antibiotics (2) PRATIK (acute kidney injury): Secondary sepsis Now resolved (3) CKD (chronic kidney disease), stage III: Baseline creatinine 1.4 Creatinine today 1.38 Follow urine output (4) Trigeminal neuralgia: Continue Gabapentin, Doxepin and lamictal. Titrate gabapentin as tolerated (5) Chronic obstructive pulmonary disease: No bronchospasm on exam Continue Incruse (AC) Continue ipratropium as needed Continue albuterol HFA as needed (6) Aneurysm of right internal iliac artery: Palpable pedal pulses on examination s/p endovascular repair in 2019 with clot removal Continue clopidogrel, Xarelto Consider statin (7) Bilateral renal cysts: No CVA tenderness on exam Numerous bilateral cysts on imaging Does not seem be an issue at this time Monitor supportively (8) GERD (gastroesophageal reflux disease): Continue pantoprazole Patient on Nexium as an outpatient -continue this on discharge (9) BPH (benign prostatic hyperplasia): Continue tamsulosin (10) DVT prophylaxis: Continue clopidogrel DOMONIQUE hose Patient should be ready for discharge tomorrow. At this time there is a question about patient picking at wound VAC line as raised by the patient's son. Discussed with case management Admission and Anticipated Discharge Date Admission Date: November 23, 2020 Subjective Attending: Dr. Davila Patient seen at bedside. Is sitting in bedside chair. He has a wound VAC in place on the left forearm. It appears to be draining well. Patient is somewhat confused and talkative. He denies any significant pain of the right arm. He has no fever or chills. He denies any nausea or vomiting. He has no new acute complaints. Review of Systems 2 Review of Systems: All systems reviewed & are unremarkable except as noted in Subjective Physical Exam Physical Exam: GENERAL : No acute distress. No conversational dyspnea with room air EYES: No icterus, gaze conjugate NOSE: No evidence of epistaxis MOUTH: No lesions or candidiasis. Mucosa is moist NECK: Supple LUNGS: Some fine crackles at bilateral bases in the posterior vazquez. No bronchospasm. No rhonchi. Good inspirational effort. HEART: Regular, rate controlled ABDOMEN: Soft, NT, ND, BS Present EXTREMITIES: No LE edema, pedal pulses intact and equal bilaterally NEURO: A&OX3 Results & Data Results & Data ([facility]) Vital Signs (Past 12 Hours) Vital Signs Temp Pulse Resp BP Pulse Ox 11/27/20 08:19 35.8 C L 86 20 153/84 H 95 Laboratory Results 11/27/20 06:38 11/27/20 06:38 Diagnostic Findings No new diagnostic imaging PG Care Time/CCT Total # of Minutes Spent Total Time Spent with Patient: Total time spent is greater than 50% in coordination of care (as documented) at patient's floor/unit and/or counseling patient: 25 minutes Coding Level of Care Code 65027 Subseq Hosp Care Lvl 2 Diagnoses Cellulitis of forearm, right L03.113 PRATIK (acute kidney injury) N17.9 CKD (chronic kidney disease), stage III N18.32 Chronic kidney disease stage 3 subtype: stage 3b (GFR 30-44) Trigeminal neuralgia G50.0 Chronic obstructive pulmonary disease J44.9 Aneurysm of right internal iliac artery I72.3 Bilateral renal cysts N28.1 GERD (gastroesophageal reflux disease) K21.9 BPH (benign prostatic hyperplasia) N40.0 DVT prophylaxis Z29.9 Time Spent (min) 25 (1) CKD (chronic kidney disease), stage III Chronic kidney disease stage 3 subtype: stage 3b (GFR 30-44) Qualified Code(s): N18.32 - Chronic kidney disease, stage 3b
[2020-11-27] MEDS: GABAPENTIN 300 MG CAP PO SCH (15:53)
[2020-11-28] MEDS: oxyCODONE HCL IR 5 MG TAB (IMMEDIATE RELEASE) PO PRN ×2 (02:34→08:11)
[2020-11-28] MEDS: ACETAMINOPHEN 325 MG TAB PO PRN (02:34)
[2020-11-28] MEDS: UMECLIDINIUM BROMIDE 62.5MCG/BLISTER 7 PUFFS/INHALER INH SCH (08:05)
[2020-11-28] MEDS: lamoTRIgine 100 MG TAB PO SCH (08:06)
[2020-11-28] MEDS: GABAPENTIN 600 MG TAB PO SCH (08:06)
[2020-11-28] MEDS: DOXEPIN HCL 25 MG CAPSULE PO SCH (08:06)
[2020-11-28] MEDS: TAMSULOSIN HCL 0.4 MG CAP PO SCH (08:06)
[2020-11-28] MEDS: CLOPIDOGREL BISULFATE 75 MG TAB PO SCH (08:06)
[2020-11-28] MEDS: ADVANCED PROBIOTIC 1250 MG CAPSULE PO SCH (08:06)
[2020-11-28] MEDS: PANTOprazole 40 MG TAB PO SCH (08:07)
[2020-11-28] MEDS: MULTIVITAMIN TAB PO SCH (08:07)
[2020-11-28] MEDS: RIVAROXABAN 20 MG TAB PO SCH (08:07)
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
[2020-11-28] MEDS: cefTRIAXone SODIUM 2,000 MG in DEXTROSE 5% 50 ML IV SCH (12:59)
[2020-11-28] MEDS: GABAPENTIN 300 MG CAP PO SCH (14:57)
== END 2020-11-28 15:47 | disposition home health service (06) | DRG 853 ==
LOC: ED 09:32 → SUATTDRO 12:55 → 3W 12:55 → 3N 11-27 01:39

== ENCOUNTER 2021-11-20 14:41 | Inpatient (IN) ==
[2021-11-20 15:51] LABS: Hematocrit (blood only) 33.6 % (42-52); Hemoglobin 11.2 g/dL (14.0-18.0); Immature Granulocytes # (auto) 0.02 K/uL (0.00-0.02); Immature Granulocytes % (auto) 0.2 %; Lymphocytes # (auto) 0.85 K/uL (1.2-3.4); Lymphocytes % (auto) 8.8 %; Mean Corpuscular Hemoglobin 30.1 pg (25-34); Mean Corpuscular Hgb Conc 33.3 g/dL (32-36); Mean Corpuscular Volume 90.3 fL (80-100); Monocytes # (auto) 0.43 K/uL (0.11-0.59); Monocytes % (auto) 4.4 %; Neutrophils # (auto) 8.37 K/uL (1.4-6.5); Neutrophils % (auto) 86.6 %; Platelet Count 260 K/uL (130-400); RDW Coefficient of Variation 13.8 % (11.5-14.5); RDW Standard Deviation 45.9 fL (36.4-46.3); Red Blood Count 3.72 M/uL (4.7-6.1); White Blood Count 9.67 K/uL (4.8-10.8)
[2021-11-20 16:01] LABS: Partial Thromboplastin Ratio 1.3; Partial Thromboplastin Time 33.3 Seconds (21.0-31.0); Prothrombin Time 10.1 Seconds (9.0-12.0)
[2021-11-20 16:18] LABS: Troponin I 0.03 ng/ml (0-0.04)
[2021-11-20 16:23] LABS: Alanine Aminotransferase 15 U/L (7-52); Albumin Globulin Ratio 1.4 (0.9-2); Albumin Level 4.2 gm/dl (3.4-5.0); Alkaline Phosphatase 88 U/L (34-104); Anion Gap 9 (3-11); Aspartate Aminotransferase 24 U/L (13-39); BUN Creatinine Ratio 16.9 (10-20); Bilirubin,Total 0.4 mg/dl (0.2-1.0); Blood Urea Nitrogen 21 mg/dl (6-23); Calcium 9.4 mg/dl (8.5-10.1); Carbon Dioxide 26 mmol/L (21-32); Chloride 101 mmol/L (98-107); Est GFR (African American) 60.2 ml/min; Est GFR (Non-African American) 51.9 ml/min; Globulin 3.1 gm/dl (2.5-4.0); Glucose 129 mg/dl (70-99(Fasting)); Magnesium 2.2 mg/dl (1.7-2.4); Potassium 4.1 mmol/L (3.5-5.1); Sodium 136 mmol/L (136-145); Total Protein 7.3 gm/dl (6.0-8.3)
--- NOTE | 2021-11-20 19:06 | Emergency Department Note ---
Impression & Plan Acute osteomyelitis of left foot ED Provider Note NAME: DAVID VASQUEZ AGE: 86 SEX: M : 1935 ARRIVES VIA: Walk-In INFORMANT: Patient, ED PROVIDER(S): Dorian Eubanks MD Chief Complaint: MRI with osteomyelitis, outpatient referral from wound clinic HPI: The patient does present due to concern for MRI with osteomyelitis. Patient has been doctoring with wound clinic and they were suggested to get an MRI of the left foot which was completed yesterday. Patient has been receiving Cipro. Patient denies any fevers chills chest pains or shortness of breath. Patient denies any nausea vomiting or diarrhea. Patient does complain of mild spasm of the right leg and the patient does have chronic lower extremity edema which is unchanged from prior. Patient has any recent falls or trauma. Patient denies any exacerbating or remitting factors. Patient denies any dysuria, hematuria or hematochezia. ROS: See HPI for pertinent positives and negatives. A total of 10 systems were reviewed and otherwise negative. Past medical history: See below Surgical history: See below Social history: See below Physical Exam: GENERAL: NAD, wearing a mask, non-toxic. EYE EXAM: Normal conjunctiva. PERRL, no anisocoria and EOM's grossly intact w/o pain. NECK: Supple, no nuchal rigidity, no adenopathy, non-tender. No signs of meningismus. LUNGS: Clear to auscultation. Normal chest wall mechanics. HEART: NSR, no MRG. ABDOMEN: Abdomen soft, non-tender, normo-active bowel sounds, no masses, no rebound or guarding. BACK: No CVA TTP. SKIN: No rashes and no bruising. UPPER EXTREMITIES: Upper extremities are grossly normal. LOWER EXTREMITIES: Grossly normal, bilateral symmetric lower extremity edema, left foot in a dressing, chronic surgical scars over the right lower extremity. NEURO EXAM: A&O x3, cranial nerves II-XII grossly intact, normal speech, moves all 4 extremities on command w/o issue. Differential diagnoses: Osteomyelitis, cellulitis, abscess, MRSA infection, DVT, necrotizing fasciitis, dermatitis, drug eruption, allergic reaction, as well as other pathologies. Course: Patient was seen and evaluated the bedside. Full history physical exam was performed. EKG interpreted by co Imaging Studies: See Below MRI OF THE LEFT FOOT WITHOUT CONTRAST CLINICAL HISTORY: Nonhealing wound. Evaluate for osteomyelitis of the left second, third and fourth toes. COMPARISON STUDY: Left foot radiographs October 06, 2021. TECHNIQUE: Utilizing a 1.5 Hillary magnet and dedicated coil, multiplanar, multi echo imaging of the left foot was performed without intravenous contrast. FINDINGS: Tarsometatarsal joints are intact. Lisfranc ligament is intact. Note is made of marked dorsal edema of the left foot. No fluid collection is identified to suggest an abscess on this unenhanced exam. 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 Note is made of a focus of susceptibility artifact within the subcutaneous tissues of the plantar medial aspect of the left midfoot. No fracture is identified within the left foot. Note is made of marked marrow edema within the head of the proximal phalanx of the left third toe. There is mildly diminished T1 marrow signal. There is also a focus of increased T2 signal within the medial aspect of the middle phalanx of the left fourth toe with mildly diminished T1 signal. Otherwise, T1 marrow signal is preserved within the left foot. There is slight marrow edema within the middle phalanx of the left third toe with preserved T1 signal as well as within the distal aspect of the proximal phalanx of the left fourth toe. No additional sites of marrow edema are present. IMPRESSION: 1. Findings suggestive of acute osteomyelitis within the head of the proximal phalanx of the left third toe and the middle phalanx of the left fourth toe. Mild marrow edema within the middle phalanx of the left third toe and the p roximal phalanx of the left fourth toe suggestive of osteitis. 2. Extensive subcutaneous dorsal edema of the left foot. No fluid collection. 3. Focus of susceptibility artifact within the plantar medial subcutaneous tissues of the left midfoot. This is nonspecific although could be due to a foreign body. ACT 112: Negative or not required by law. Electronically signed by: Andrew Carreno M.D. 11/19/2021 11:28 AM Dictated:11/19/21 1116 Transcribed: 11/19/21 1116 Cardiac monitoring: An order was placed for continuous cardiac monitoring. The monitor shows a rate of 82 with sinus rhythm. MDM: Patient's foot MRI does show findings suggestive of acute osteomyelitis in the head of the proximal phalanx of the left third toe middle phalanx of the left fourth toe. There is also osteitis noted. The patient did have blood work completed and was ordered vancomycin. Patient was also ordered ciprofloxacin as the patient has an allergy of penicillin as the shock and do not want to risk cross-reactivity with cephalosporin. Patient has tolerated the Cipro as an outpatient. Patient is a normal white count with mild anemia with a hemoglobin 9.2. Platelet count is unremarkable. Kidney function is unremarkable. Covid negative. I did speak with the on-call hospitalist Dr. Sandoval and the patient was admitted to the medicine service. 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 GERD (gastroesophageal reflux disease) Hyponatremia Incarcerated right inguinal hernia Metabolic encephalopathy Pneumonia Sensorineural hearing loss Sepsis Trigeminal neuralgia Surgical History H/O fasciotomy H/O tooth extraction History of inguinal hernia repair Hx of shoulder surgery S/P debridement 11/25/20 Dr. Delvis Gale- Right Forearm Debridement of Necrotic Abscess(Right) S/P vascular surgery 06/26/19 right superficial femoral artery cutdown, RLE angiogram, right popliteal artery aneurysm excision with viabahn stent graft- Dr. 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 Beliefs That Will Affect Care: None marital status: Current Living Situation: Spouse current occupational status: retired How many Children do You have: 3 Feels Safe at Home: Yes Safety Concerns Comment: frequent falls Childhood Exposure to Second-Hand Smoke: Yes caffeine: Yes Dental Care, Regularly: No Physical Activity Frequency: 1-2 Times per Week Seatbelt Use: always Sunscreen Use: No Do you think of yourself as: straight/heterosexual Gender Identity: Male Assistive Devices: Walker Allergies Allergies Allergy/AdvReac Type Severity Reaction Status Date / Time Penicillins Allergy Severe SHOCK Verified 11/20/21 13:54 aspirin Allergy Intermediate Swelling Verified 11/20/21 13:54 Home Meds Home Medications Medication Instructions Recorded Confirmed ipratropium 20 mcg-albuterol 100 1 puffs INHALATION QID PRN gm 07/07/19 11/20/21 mcg/actuation mist for inhalation tiotropium bromide 18 mcg capsule 1 cap INHALATION DAILY puffs 07/07/1911/11 with inhalation device tamsulosin 0.4 mg capsule 0.4 mg PO DAILY cap 09/21/19 11/20/21 clopidogrel 75 mg tablet 75 mg PO QAM 05/27/20 11/20/21 esomeprazole magnesium 20 mg 20 mg PO DAILY 05/27/20 11/20/21 capsule,delayed release (Nexium) bee pollen 550 mg capsule 550 mg PO DAILY 11/16/20 11/20/21 acetaminophen 650 mg 650 mg PO Q8H PRN 12/26/20 11/20/21 tablet,extended release finasteride 5 mg tablet 5 mg PO DAILY 08/20/21 11/20/21 mecobalamin (vitamin B12) 1,000 1,000 mcg SUBLINGUAL DAILY 08/20/21 11/20/21 mcg disintegrating tablet,sublingual diclofenac sodium 1 % topical gel 4 g TOPICAL QID PRN 10/06/21 11/20/21 lamotrigine 300 mg tablet,extended 300 mg PO .DAILY AT 1500 10/06/21 11/20/21 release 24 hr melatonin 10 mg capsule 10 mg PO HS cap 10/29/21 11/20/21 coenzyme Q10 100 mg capsule 100 mg PO DAILY 11/20/21 11/20/21 (CoQ-10) diphenhydramine 25 1 tab PO HS PRN 11/20/21 11/20/21 mg-acetaminophen 500 mg tablet doxepin 25 mg capsule 50 mg PO HS 11/20/21 11/20/21 nystatin 100,000 unit/gram topical 1 applic TOPICAL BID PRN 11/20/21 11/20/21 powder tramadol 50 mg tablet 50 mg PO Q6 PRN 11/20/21 11/20/21 Previous Rx's Medication Instructions Recorded multivitamin (Daily Multi-Vitamin) 1 tab PO DAILY #30 tab 03/09/19 lidocaine 5 % topical patch 1 patch TOP DAILY PRN #15 ea 12/12/20 gabapentin 600 mg tablet 600 mg PO TID 90 Days #270 tab 08/12/21 ciprofloxacin HCl 250 mg tablet 250 mg PO BID 14 Days #28 tab 11/17/21 Results & Data (ED) Vital Signs Vital Signs - 24 hr 11/20/21 15:02 11/20/21 20:00 11/20/21 22:00 Temperature 36.4 C L Temperature Source Temporal Artery Scan Pulse Rate 84 Pulse Rate [Right Finger] 82 81 Pulse Rhythm [Right Finger] Regular Regular Pulse Strength [Right Finger] Normal Normal Respiratory Rate 18 16 18 Respiratory Effort / Characteristics Non-Labored Spontaneous Non-Labored Non-Labored Respiratory Depth Normal Normal Normal Respiratory Pattern Regular Regular Regular Blood Pressure 120/82 Blood Pressure [Right Arm] 166/92 H 167/84 H Blood Pressure Mean 94 Blood Pressure Mean [Right Arm] 116 111 Blood Pressure Position [Right Arm] Lying Pulse Oximetry 92 94 95 Oxygen Delivery Method Room Air Room Air Room Air Sepsis Recent Fever Within 48 Hours No Sepsis New/Unexplained Change in Mental Status No Sepsis Action Taken by Nursing No Action Required Home Medications Current Medication List: was personally reviewed by me Laboratory Data Attestation: I reviewed the patient's lab results. Result diagrams: 11/20/21 15:40 11/20/21 15:40 Lab Results 11/20/21 11/20/21 11/20/21 Range/Units 15:40 15:40 15:40 WBC 9.67 (4.8-10.8) K/uL RBC 3.72 L (4.7-6.1) M/uL Hgb 11.2 L (14.0-18.0) g/dL Hct 33.6 L (42-52) % MCV 90.3 (80-100) fL MCH 30.1 (25-34) pg MCHC 33.3 (32-36) g/dL RDW Std Deviation 45.9 (36.4-46.3) fL RDW Coeff of Saturnino 13.8 (11.5-14.5) % Plt Count 260 (130-400) K/uL MPV 9.0 (7.4-10.4) fL Immature Gran % (Auto) 0.2 % Neut % (Auto) 86.6 % Lymph % (Auto) 8.8 % Delta % (Auto) 4.4 % Eos % (Auto) 0.0 % Baso % (Auto) 0.0 % Neut # (Auto) 8.37 H (1.4-6.5) K/uL Lymph # (Auto) 0.85 L (1.2-3.4) K/uL Delta # (Auto) 0.43 (0.11-0.59) K/uL Eos # (Auto) 0.00 (0-0.5) K/uL Baso # (Auto) 0.00 (0-0.2) K/uL Immature Gran # (Auto) 0.02 (0.00-0.02) K/uL PT 10.1 (9.0-12.0) Seconds INR 1.0 (0.9-1.1) APTT 33.3 H (21.0-31.0) Seconds PTT Ratio 1.3 Sodium 136 (136-145) mmol/L Potassium 4.1 (3.5-5.1) mmol/L Chloride 101 (98-107) mmol/L Carbon Dioxide 26 (21-32) mmol/L Anion Gap 9 (3-11) BUN 21 (6-23) mg/dl Creatinine 1.24 (0.6-1.4) mg/dl Est Cr Clr Drug Dosing Not Reportable Est GFR ( Amer) 60.2 ml/min Est GFR (Non-Af Amer) 51.9 ml/min BUN/Creatinine Ratio 16.9 (10-20) Glucose 129 H (70-99(Fasting)) mg/dl Calcium 9.4 (8.5-10.1) mg/dl Magnesium 2.2 (1.7-2.4) mg/dl Total Bilirubin 0.4 (0.2-1.0) mg/dl AST 24 (13-39) U/L ALT 15 (7-52) U/L Alkaline Phosphatase 88 (34-104) U/L Troponin I 0.03 (0-0.04) ng/ml Total Protein 7.3 (6.0-8.3) gm/dl Albumin 4.2 (3.4-5.0) gm/dl Globulin 3.1 (2.5-4.0) gm/dl Albumin/Globulin Ratio 1.4 (0.9-2) SARS-CoV-2, RNA, NAAT (NEGATIVE) 11/20/21 Range/Units 21:14 WBC (4.8-10.8) K/uL RBC (4.7-6.1) M/uL Hgb (14.0-18.0) g/dL Hct (42-52) % MCV (80-100) fL MCH (25-34) pg MCHC (32-36) g/dL RDW Std Deviation (36.4-46.3) fL RDW Coeff of Saturnino (11.5-14.5) % Plt Count (130-400) K/uL MPV (7.4-10.4) fL Immature Gran % (Auto) % Neut % (Auto) % Lymph % (Auto) % Delta % (Auto) % Eos % (Auto) % Baso % (Auto) % Neut # (Auto) (1.4-6.5) K/uL Lymph # (Auto) (1.2-3.4) K/uL Delta # (Auto) (0.11-0.59) K/uL Eos # (Auto) (0-0.5) K/uL Baso # (Auto) (0-0.2) K/uL Immature Gran # (Auto) (0.00-0.02) K/uL PT (9.0-12.0) Seconds INR (0.9-1.1) APTT (21.0-31.0) Seconds PTT Ratio Sodium (136-145) mmol/L Potassium (3.5-5.1) mmol/L Chloride (98-107) mmol/L Carbon Dioxide (21-32) mmol/L Anion Gap (3-11) BUN (6-23) mg/dl Creatinine (0.6-1.4) mg/dl Est Cr Clr Drug Dosing Est GFR ( Amer) ml/min Est GFR (Non-Af Amer) ml/min BUN/Creatinine Ratio (10-20) Glucose (70-99(Fasting)) mg/dl Calcium (8.5-10.1) mg/dl Magnesium (1.7-2.4) mg/dl Total Bilirubin (0.2-1.0) mg/dl AST (13-39) U/L ALT (7-52) U/L Alkaline Phosphatase (34-104) U/L Troponin I (0-0.04) ng/ml Total Protein (6.0-8.3) gm/dl Albumin (3.4-5.0) gm/dl Globulin (2.5-4.0) gm/dl Albumin/Globulin Ratio (0.9-2) SARS-CoV-2, RNA, NAAT NEGATIVE (NEGATIVE) Administered Medications Discontinued Medications Sodium Chloride (Nss) 500 mls @ 999 mls/hr IV .Q31M CHIP Stop: 11/20/21 20:15 Last Infusion: 11/20/21 21:16 Dose: 0 mls/hr Documented by: [id number] Admin: 11/20/21 20:37 Dose: 999 mls/hr Documented by: [id number] Vancomycin HCl 2,250 mg/ (Sodium Chloride) 545 mls @ 200 mls/hr IV NOW ONE Stop: 11/20/21 22:27 Last Admin: 11/20/21 20:37 Dose: 200 mls/hr Documented by: [id number] Ciprofloxacin (Cipro / D5w) 400 mg in 200 mls @ 100 mls/hr IV NOW STA; Protocol Stop: 11/20/21 21:44 Last Admin: 11/20/21 21:02 Dose: 100 mls/hr Documented by: [id number] Discharge Plan Visit Data Chief Complaint: Infection, Wound Stated Complaint: OPEN WOUND ON LT FOOT,INFECTED ED Provider: Dorian Eubanks Discharge Problem: Acute osteomyelitis of left foot Patient Disposition: Admitted As Inpatient Forms Stand Alone Forms: [facility] Prescriptions Prescriptions: No Action acetaminophen 650 mg tablet extended release 650 mg PO Q8H PRN (Reason: FEVER/PAIN) RF: 0 melatonin 10 mg capsule 10 mg PO HS RF: 0 gabapentin 600 mg tablet 600 mg PO TID 90 Days Qty: 270 RF: 1 ciprofloxacin HCl 250 mg tablet 250 mg PO BID 14 Days Qty: 28 RF: 0 multivitamin [Daily Multi-Vitamin] tablet 1 tab PO DAILY Qty: 30 RF: 0 ipratropium-albuterol 20-100 mcg/actuation mist 1 puffs inhalation QID PRN (Reason: shortness of breath) RF: 0 tiotropium bromide 18 mcg capsule, w/inhalation device 1 cap inhalation DAILY RF: 0 tamsulosin 0.4 mg capsule 0.4 mg PO DAILY RF: 0 mecobalamin (vitamin B12) 1,000 mcg tablet,disintegrating 1,000 mcg sublingual DAILY RF: 0 finasteride 5 mg tablet 5 mg PO DAILY RF: 0 clopidogrel 75 mg tablet 75 mg PO QAM RF: 0 esomeprazole magnesium [Nexium] 20 mg Capsule,Delayed Release(Dr/Ec) 20 mg PO DAILY RF: 0 bee pollen 550 mg capsule 550 mg PO DAILY RF: 0 lidocaine 5 % adhesive patch,medicated 1 patch TOP DAILY PRN (Reason: pain) Qty: 15 RF: 0 diclofenac sodium 1 % Gel 4 g TOPICAL QID PRN (Reason: Pain) RF: 0 lamotrigine 300 mg tablet extended release 24hr 300 mg PO .DAILY AT 1500 RF: 0 doxepin 25 mg capsule 50 mg PO HS RF: 0 diphenhydramine-acetaminophen [Acetaminophen Ex Str Sleep Aid] 25-500 mg Tablet 1 tab PO HS PRN (Reason: Sleep) RF: 0 tramadol 50 mg tablet 50 mg PO Q6 PRN (Reason: Pain) RF: 0 nystatin 100,000 unit/gram Powder 1 applic TOPICAL BID PRN (Reason: groin irritation) RF: 0 coenzyme Q10 [CoQ-10] 100 mg Capsule 100 mg PO DAILY RF: 0 Referrals Referrals: Annmarie Ng CRNP [Primary Care Provider] -
[2021-11-20] MEDS ORDERED: VANCOMYCIN CONSULT ACTIVE PRN (19:44)
[2021-11-20] MEDS ORDERED: VANCOMYCIN HCL 2,250 MG in SODIUM CHLORIDE 0.9% 500 ML IV ONE (19:44)
[2021-11-20] MEDS ORDERED: SODIUM CHLORIDE 0.9% 500 ML IV SCH (19:45)
[2021-11-20] MEDS ORDERED: CIPROFLOXACIN / D5W 400 MG/200 ML BAG IV STA (19:45)
--- NOTE | 2021-11-20 23:12 | History & Physical Report ---
Date of Service November 20, 2021 Assessment & Plan (1) Acute osteomyelitis of left foot: Plan: 86-year-old man with a history of peripheral artery disease, popliteal aneurysm, AAA, right internal iliac artery thrombosis, neuropathic leg pain, and COPD who was diagnosed outpatient with osteomyelitis, now admitted for further acute antibiotic management and concern for complete occlusion distal occlusion of the left foot. Osteomyelitis/cellulitis * Stubbed toe 6 weeks ago with swelling that progressed to cellulitis (refractory to antibiotic treatment), which further deteriorated to osteomyelitis * Foot MRIacute osteomyelitis; wound culture from [facility] wound clinic 11/13/2021 positive for Pseudomonas, Enterococcus * Received IV vancomycin, IV ciprofloxacin x1 each in the ED; blood cultures pending (r/o bacteremia) * Continue IV vancomycin * Continue IV ciprofloxacin 750 mg every 12 hours * Wound care nursing consult placed. * Morning CBC, PTT labs PAD/distal left lower extremity ischemia * Patient is a chronic vasculopath with history of AAA, carotid artery stenosis, right internal iliac aneurysm, popliteal aneurysm; review of records show that he was started on Xarelto though it is unclear how adherent patient was * Believe that this is the cause of patient's acute pain, despite the fact that he has bilateral neuropathic lower extremity pain at baseline. * Unable to find dorsalis pedis pulse with hand-held Doppler * Patient's presentation and exam concerning for complete occlusion; patient was resistant to surgical management when seen by [facility] vascular surgery (10/06/2021). However, patient is open to surgical management at present. * IV Heparin due to concern for complete occlusion: 60 unit/kg bolus dose (5700 units), followed by 12 units/kg maintenance drip (1140 units). * Started on rosuvastatin 20 mg every morning * Vascular surgery consult placed to Dr. Gray. * Arterial Doppler orderedawaiting results * Pain control: IV Tylenol 1000 mg every 8 hours CHIP; home tramadol 50 mg every 6 hours as needed for moderate breakthrough pain; IV morphine 2 mg every 4 hours as needed for severe breakthrough pain. Bilateral neuropathic pain * Continue home gabapentin 600 3 times daily * Home vitamin B12 Bilateral lower extremity tremors * Lamotrigine 300 mg daily GERD * Continue home Nexium 20 mg every 24 hours Chronic conditions: Continue home meds. Code: DNR/DNI Dispo: Med-Surg telemetry FEN/GI: NPO DVT Prophylaxis: Heparin 12 units/kg maintenance drip PT/OT: Ordered (2) PAD (peripheral artery disease): (3) Cellulitis of left foot: (4) PVD (peripheral vascular disease): (5) Mood disorder: (6) COPD (chronic obstructive pulmonary disease): History of Present Illness Primary Care Provider: KOSTAS Muhammad Marcellus Gorman is an 86-year-old man with a past medical history of AAA (untreated) COPD, chronic bilateral neuropathic leg pain, left popliteal aneurysm, right internal iliac aneurysm, and GERD who presented to the emergency room from [facility] wound care clinic for deteriorating cellulitis and ulcer of the left foot. The patient is here with his son, Lalo, who provided the majority of the patient history. Per Lalo, the patient symptoms began approximately 6 weeks ago when he stopped his left foot, which caused some swelling. When the swelling did not resolve after 3 weeks, the patient was seen by [facility] wound clinic for further management. On review of wound care's notes, it appears that, despite treatment of his apparent cellulitis with ciprofloxacin, the initial cellulitic injury continued to deteriorate, despite antibiotic therapy. Eventually, due to concern for osteomyelitis, wound care clinic insisted he be brought to the [facility] for an MRI of his foot out of concern for osteomyelitis before continuing antibiotic treatment. A wound culture sample obtained at wound clinic on 11/13/2021 grew Pseudomonas and Enterococcus faecalis. ROS + neuropathic pain at baseline bilaterally, new onset unilateral lower extremity swelling on the left In the emergency room, MRI of the left foot revealed findings suggestive of acute osteomyelitis within the head of the proximal phalanx of the left third toe in the middle phalanx of the left fourth toe. Some marrow edema within the middle phalanx of the left third toe and the proximal phalanx of the left fourth toe was also noted, suggestive of osteitis. Venous Doppler showed left arterial occlusion from the superficial femoral artery to dorsalis pedis. Review of visit note with [facility] vascular surgeon from 10/06/2021 mentions a left popliteal aneurysm found on imaging. He received a one-time dose of ciprofloxacin and vancomycin and admitted for further management. Allergies Allergy/AdvReac Type Severity Reaction Status Date / Time Penicillins Allergy Severe SHOCK Verified 11/20/21 13:54 aspirin Allergy Intermediate Swelling Verified 11/20/21 13:54 Home Medications Medication Instructions Recorded Confirmed Type multivitamin (Daily Multi-Vitamin) 1 tab PO DAILY #30 tab 03/09/19 11/20/21 Rx ipratropium 20 mcg-albuterol 100 1 puffs INHALATION QID PRN gm 07/07/19 11/20/21 History mcg/actuation mist for inhalation tiotropium bromide 18 mcg capsule 1 cap INHALATION DAILY puffs 07/07/19 11/20/21 History with inhalation device tamsulosin 0.4 mg capsule 0.4 mg PO DAILY cap 09/21/19 11/20/21 History clopidogrel 75 mg tablet 75 mg PO QAM 05/27/20 11/20/21 History esomeprazole magnesium 20 mg 20 mg PO DAILY 05/27/20 11/20/21 History capsule,delayed release (Nexium) bee pollen 550 mg capsule 550 mg PO DAILY 11/16/20 11/20/21 History lidocaine 5 % topical patch 1 patch TOP DAILY PRN #15 ea 12/12/20 11/20/21 Rx acetaminophen 650 mg 650 mg PO Q8H PRN 12/26/20 11/20/21 History tablet,extended release gabapentin 600 mg tablet 600 mg PO TID 90 Days #270 tab 08/12/21 11/20/21 Rx finasteride 5 mg tablet 5 mg PO DAILY 08/20/21 11/20/21 History mecobalamin (vitamin B12) 1,000 1,000 mcg SUBLINGUAL DAILY 08/20/21 11/20/21 History mcg disintegrating tablet,sublingual diclofenac sodium 1 % topical gel 4 g TOPICAL QID PRN 10/06/21 11/20/21 History lamotrigine 300 mg tablet,extended 300 mg PO .DAILY AT 1500 10/06/21 11/20/21 History release 24 hr melatonin 10 mg capsule 10 mg PO HS cap 10/29/21 11/20/21 History ciprofloxacin HCl 250 mg tablet 250 mg PO BID 14 Days #28 tab 11/17/21 11/20/21 Rx coenzyme Q10 100 mg capsule 100 mg PO DAILY 11/20/21 11/20/21 History (CoQ-10) diphenhydramine 25 1 tab PO HS PRN 11/20/21 11/20/21 History mg-acetaminophen 500 mg tablet doxepin 25 mg capsule 50 mg PO HS 11/20/21 11/20/21 History nystatin 100,000 unit/gram topical 1 applic TOPICAL BID PRN 11/20/21 11/20/21 History powder tramadol 50 mg tablet 50 mg PO Q6 PRN 11/20/21 11/20/21 History Past Med/Surg History Medical History Abscess of forearm, right Absent foot pulse Acid reflux disease Acute kidney injury Acute metabolic encephalopathy Aneurysm of abdominal aorta Aneurysm of right internal iliac artery Aspiration pneumonia Bilateral renal cysts Carotid artery narrowing Cellulitis of forearm, right Chronic obstructive pulmonary disease COPD (chronic obstructive pulmonary disease) will continue home meds. GERD (gastroesophageal reflux disease) Hyponatremia Incarcerated right inguinal hernia Metabolic encephalopathy Pneumonia Sensorineural hearing loss Sepsis Trigeminal neuralgia Surgical History H/O fasciotomy H/O tooth extraction History of inguinal hernia repair Hx of shoulder surgery S/P debridement 11/25/20 Dr. Delvis Gale- Right Forearm Debridement of Necrotic Abscess(Right) S/P vascular surgery 06/26/19 right superficial femoral artery cutdown, RLE angiogram, right popliteal artery aneurysm excision with viabahn stent graft- Dr. Ryder Roman Status post ear surgery Family History Mother Myocardial infarction Other Family history non-contributory Denies family history of Ovarian cancer Prostate cancer Breast cancer Colorectal cancer Social History Smoking Status: Former smoker Tobacco Type: Cigarettes Second Hand Exposure: No; Hx Alcohol Use: No Hx Substance Use: No Preferred Language: Indonesian Communication Ability: Effective Visual Impairment: No Limitations Hearing Ability: Hard of Hearing Punch Box Tender Required: No Beliefs That Will Affect Care: None marital status: Current Living Situation: Spouse current occupational status: retired How many Children do You have: 3 Feels Safe at Home: Yes Safety Concerns Comment: frequent falls Childhood Exposure to Second-Hand Smoke: Yes caffeine: Yes Dental Care, Regularly: No Physical Activity Frequency: 1-2 Times per Week Seatbelt Use: always Sunscreen Use: No Do you think of yourself as: straight/heterosexual Gender Identity: Male Assistive Devices: Walker Review of Systems Review of Systems: All systems reviewed & are unremarkable except as noted in HPI & below Physical Exam Physical Exam: General: Patient is AAO x3 and appears anxious and acutely ill. HEENT: Non-erythematous oropharynx; no lymphadenopathy; normal dentition. CV: Regular rate and rhythm. 3/6 systolic murmur heard loudest at the right s econd ICS. Left-sided, 2+ pitting lower extremity edema to the knee. + Toe clubbing. No distal pulses (DP, TA) at the left foot with palpation and hand- held Doppler. Purplish discoloration at the midfoot extending distally to the base of the third and fourth toes. Toenails 1-5 appear dusky. Mid and distal left foot is cool to the touch. Severe tenderness to palpation bilaterally from below the knees to the ankle. Pulmonary: Bibasilar crackles heard on auscultation. + Rhonchi. Abdomen: Soft, nondistended abdomen. No bruits heard on auscultation. No tenderness to deep palpation. No guarding or rebound. MSK: Full ROM at all joints. Equal 5/5 strength bilaterally at the ankle joint with flexion and extension. Skin: Area of purplish/bluish erythema observed at the base of left foot extending proximally to the midfoot, with an open, central area of ulceration filled with what appears to be granulation tissue (or pus). No oozing. Exquisite TTP proximally from the base of the toes to the distal tip, greatest at third digit. Neuro: No focal motor or sensory deficits observed at the knee or ankle joints. Psych: Alert and oriented x3. Congruent mood and affect. Results & Data Results & Data ([facility]) Vital Signs (Past 12 Hours) Vital Signs Temp Pulse Pulse Resp BP BP Pulse Ox 11/20/21 22:00 81 18 167/84 H 95 11/20/21 20:00 82 16 166/92 H 94 11/20/21 15:02 36.4 C L 84 18 120/82 92 Laboratory Results Laboratory Results WBC 9.67 K/uL (4.8-10.8) 11/20/21 15:40 RBC 3.72 M/uL (4.7-6.1) L 11/20/21 15:40 Hgb 11.2 g/dL (14.0-18.0) L 11/20/21 15:40 Hct 33.6 % (42-52) L 11/20/21 15:40 MCV 90.3 fL (80-100) 11/20/21 15:40 MCH 30.1 pg (25-34) 11/20/21 15:40 MCHC 33.3 g/dL (32-36) 11/20/21 15:40 RDW Std Deviation 45.9 fL (36.4-46.3) 11/20/21 15:40 RDW Coeff of Saturnino 13.8 % (11.5-14.5) 11/20/21 15:40 Plt Count 260 K/uL (130-400) 11/20/21 15:40 MPV 9.0 fL (7.4-10.4) 11/20/21 15:40 Immature Gran % (Auto) 0.2 % 11/20/21 15:40 Neut % (Auto) 86.6 % 11/20/21 15:40 Lymph % (Auto) 8.8 % 11/20/21 15:40 Price % (Auto) 4.4 % 11/20/21 15:40 Eos % (Auto) 0.0 % 11/20/21 15:40 Baso % (Auto) 0.0 % 11/20/21 15:40 Neut # (Auto) 8.37 K/uL (1.4-6.5) H 11/20/21 15:40 Lymph # (Auto) 0.85 K/uL (1.2-3.4) L 11/20/21 15:40 Price # (Auto) 0.43 K/uL (0.11-0.59) 11/20/21 15:40 Eos # (Auto) 0.00 K/uL (0-0.5) 11/20/21 15:40 Baso # (Auto) 0.00 K/uL (0-0.2) 11/20/21 15:40 Immature Gran # (Auto) 0.02 K/uL (0.00-0.02) 11/20/21 15:40 PT 10.1 Seconds (9.0-12.0) 11/20/21 15:40 INR 1.0 (0.9-1.1) 11/20/21 15:40 APTT 33.3 Seconds (21.0-31.0) H 11/20/21 15:40 PTT Ratio 1.3 11/20/21 15:40 Sodium 136 mmol/L (136-145) 11/20/21 15:40 Potassium 4.1 mmol/L (3.5-5.1) 11/20/21 15:40 Chloride 101 mmol/L (98-107) 11/20/21 15:40 Carbon Dioxide 26 mmol/L (21-32) 11/20/21 15:40 Anion Gap 9 (3-11) 11/20/21 15:40 BUN 21 mg/dl (6-23) 11/20/21 15:40 Creatinine 1.24 mg/dl (0.6-1.4) 11/20/21 15:40 Est Cr Clr Drug Dosing Not Reportable 11/20/21 15:40 Est GFR ( Amer) 60.2 ml/min 11/20/21 15:40 Est GFR (Non-Af Amer) 51.9 ml/min 11/20/21 15:40 BUN/Creatinine Ratio 16.9 (10-20) 11/20/21 15:40 Glucose 129 mg/dl (70-99(Fasting)) H 11/20/21 15:40 Calcium 9.4 mg/dl (8.5-10.1) 11/20/21 15:40 Magnesium 2.2 mg/dl (1.7-2.4) 11/20/21 15:40 Total Bilirubin 0.4 mg/dl (0.2-1.0) 11/20/21 15:40 AST 24 U/L (13-39) 11/20/21 15:40 ALT 15 U/L (7-52) 11/20/21 15:40 Alkaline Phosphatase 88 U/L (34-104) 11/20/21 15:40 Troponin I 0.03 ng/ml (0-0.04) 11/20/21 15:40 Total Protein 7.3 gm/dl (6.0-8.3) 11/20/21 15:40 Albumin 4.2 gm/dl (3.4-5.0) 11/20/21 15:40 Globulin 3.1 gm/dl (2.5-4.0) 02/10/22 15:40 Albumin/Globulin Ratio 1.4 (0.9-2) 11/20/21 15:40 SARS-CoV-2, RNA, NAAT NEGATIVE (NEGATIVE) 11/20/21 21:14 Supervising Physician Co-Signing Physician Notes Patient seen and examined, chart reviewed, case discussed with Dr. Woodward and I agree wtih the assessment and plan as above. In brief, patient is an 86yo male with severe peripheral arterial disease. Patient has known left popliteal artery aneurysm that is thrombosed. He has been seen by Vascular Surgery in the past - noted that palliative care and antibiotics was preferred over surgical intervention. Patient had extensive intervention on his RLE SFA/pop aneurysm with RLE ischemia to include arteriogram, thrombectomy, stenting then compartment fasciotomy He has untreated AAA - last image reported 5.3cm per CTA He has known right internal iliac aneurysm as well as a thrombosed left popliteal aneurysm Trauma to left foot resulting in progressive pain, redness, swelling and discoloration of his toes. Was following with wound care. Culture from 11/13/21 with Pseudomonas and Enterococcus. Was on Cipro PO for Pseudomonal coverage. Outpatient MRI confirmed presence of osteomyelitis Patient is in significant discomfort. Foot is very painful to touch Chronically ill in appearance +S1/S2, regular, 3/6 [place] across precordium Lungs CTA Abd - +BS, soft, NT/ND Ext - +edema bilaterally, skin red, shiny and hairless. Dorsum of foot on left with open wound with mild purulent drainage. Tender to touch. No crepitus. P ulses of LLE are not palpable or dopplerable Labs and images reviewed Assessment/Plan LLE arterial occlusion in patient with severe peripheral arterial disease Osteomyelitis Previously did not want to discuss surgical options but now is open to discussion - may improve pain and wound healing Pain control Heparin gtt Plavix and Statin Antibiotic tx with Ciprofloxacin and Vancomycin Vascular surgery input appreciated Wound care Remainder as above Resident Activity Tracking Resident Involvement: Resident Care Provided Care Provided: Adult Hospital Medicine
[2021-11-20] MEDS ORDERED: HEPARIN SOD (PORCINE) 1000 UNIT/ML IV ONE (23:22)
[2021-11-20] MEDS ORDERED: MoRPHine SULFATE 2 MG/ML CARP IV STA (23:37)
[2021-11-21] MEDS: HEPARIN SODIUM/DEXTROSE 25,000 UNITS/500 ML BAG IV SCH (00:56)
[2021-11-21] MEDS ORDERED: MoRPHine SULFATE 2 MG/ML CARP IV PRN (01:25)
[2021-11-21] MEDS ORDERED: CIPROFLOXACIN 250 MG TAB ONE (01:58)
[2021-11-21] MEDS: CIPROFLOXACIN 250 MG TAB PO SCH ×2 (02:23→08:33)
[2021-11-21] MEDS: ACETAMINOPHEN 1,000 MG/100 ML VIAL IV SCH ×3 (02:23→22:53)
[2021-11-21] MEDS ORDERED: MELATONIN 3 MG TAB PO PRN (02:40)
[2021-11-21 08:06] LABS: Partial Thromboplastin Ratio 2.2
[2021-11-21 08:09] LABS: Partial Thromboplastin Time 58.7 Seconds (21.0-31.0)
[2021-11-21 08:26] LABS: Creatinine Clr Calc Pharmacy 54.7 ml/min; Est GFR (African American) 68.1 ml/min; Est GFR (Non-African American) 58.7 ml/min
[2021-11-21] MEDS: ROSUVASTATIN CALCIUM 20 MG TAB PO SCH (08:34)
[2021-11-21] MEDS: GABAPENTIN 600 MG TAB PO SCH ×3 (08:34→20:34)
[2021-11-21] MEDS: CYANOCOBALAMIN (B-12) 500 MCG TABLET PO SCH (08:34)
[2021-11-21] MEDS: TAMSULOSIN HCL 0.4 MG CAP PO SCH (08:34)
[2021-11-21] MEDS: MULTIVITAMIN TAB PO SCH (08:34)
[2021-11-21] MEDS: CLOPIDOGREL BISULFATE 75 MG TAB PO SCH (08:34)
[2021-11-21] MEDS: PANTOprazole 40 MG TAB PO SCH (08:34)
[2021-11-21] MEDS: UMECLIDINIUM BROMIDE 62.5MCG/BLISTER 7 PUFFS/INHALER INH SCH (08:34)
[2021-11-21] MEDS: FINASTERIDE 5 MG TAB PO SCH (08:34)
--- NOTE | 2021-11-21 08:37 | Ultrasound Report ---
US arterial duplex left lower extremity CLINICAL HISTORY: arterial occlusion dorsalis pedis. Nonhealing left foot wound. COMPARISON STUDY: Left leg venous Doppler 10/06/2021.. FINDINGS: Calcified plaque within the left common femoral artery. Normal velocities and biphasic wave forms within the left common femoral and proximal superficial femoral arteries. Monophasic low veloci ty waveforms within the mid left superficial femoral artery. Complete occlusion within the distal lef t superficial femoral artery, popliteal artery, and calf arteries. This remains unchanged compared to the prior venous Doppler study. IMPRESSION: Occluded arteries of the left lower extremity extending from the distal superficial femo ral artery to the dorsalis pedis artery. This is unchanged from the 2720 venous Doppler study. ACT 112: Negative or not required by law. Electronically signed by: Wing Forrest M.D. 11/21/2021 8:36 AM
[2021-11-21] MEDS ORDERED: NON-FORMULARY MEDICATION (Coenzyme Q10 [Coq-10] 100 mg Capsule) PO SCH (09:00)
--- NOTE | 2021-11-21 09:34 | Pharmacy Report ---
Pharmacy Vanc AUC Short Note - Date of Service November 21, 2021 - Assessment & Plan Assessment 86 year old M receiving Vancomycin and Cipro for treatment of osteomyelitis of the left foot . Pertinent microbiologic data includes: wound culture from [facility] wound clinic 11/13/2021 positive for Pseudomonas, Enterococcus. Blood cultures pending to r/o bacteremia. PT has noted penicillin allergy (severe). Renal function appears to be near baseline, although patient has fluctuations in previous SrCr levels. Plan Vancomycin * AUC/AMAURY is the preferred PK/PD target for vancomycin * AUC guided dosing is effective and associated with decreased risk of nephrot oxicity compared to traditional trough targets * Currently ordered dose of 1500mg IV q24H is expected to achieve target AUC/AMAURY of 400-600 mg/L.hr and may be associated with a 13% risk of nephrotoxicity * Trough or random level ordered for: 11/23/21 due to slightly higher percentage of supratherapeutic level (13%). Cipro * Cipro 750mg po BID. Appropriate dose for osteomyelitis Pharmacy will continue to follow and will adjust dose/frequency as necessary. Thank you.
--- NOTE | 2021-11-21 10:20 | Hospitalist Progress Note ---
Date of Service November 21, 2021 Assessment & Plan (1) Acute osteomyelitis of left foot: Plan: 86-year-old man with a history of peripheral artery disease, popliteal aneurysm, AAA, right internal iliac artery thrombosis, neuropathic leg pain, and COPD who was diagnosed outpatient with osteomyelitis, now admitted for further acute antibiotic management and concern for complete occlusion distal occlusion of the left foot. * Stubbed toe 6 weeks ago with swelling that progressed to cellulitis (refractory to antibiotic treatment), which further deteriorated to osteomyelitis * Foot MRIacute osteomyelitis; wound culture from [facility] wound clinic 11/13/2021 positive for Pseudomonas, Enterococcus * Received IV vancomycin, IV ciprofloxacin x1 each in the ED; blood cultures pending (r/o bacteremia) * Continue IV vancomycin * Continue IV ciprofloxacin 400mg q12h * Wound care nursing consult placed. * Morning CBC, PTT labs (2) PAD (peripheral artery disease): Plan: Now with ischemic foot * Patient is a chronic vasculopath with history of AAA, carotid artery stenosis, right internal iliac aneurysm, popliteal aneurysm; review of records show that he was started on Xarelto though it is unclear how adherent patient was. Continue Plavix and Rosuvastatin. * Believe that this is the cause of patient's acute pain, despite the fact that he has bilateral neuropathic lower extremity pain at baseline. * Unable to find dorsalis pedis pulse with hand-held Doppler * Patient's presentation and exam concerning for complete occlusion; patient was resistant to surgical management when d/w vascular surgery in September, but is now agreeable to surgical intervention. * IV Heparin due to concern for complete occlusion: 60 unit/kg bolus dose (5700 units), followed by 12 units/kg maintenance drip (1140 units). * Vascular surgery consult placed to Dr. Gray, appreciate recommendations. * Arterial Doppler performed--results above * Pain control: IV Tylenol 1000 mg every 8 hours CHIP; home tramadol 50 mg every 6 hours as needed for moderate breakthrough pain; IV morphine 2 mg every 4 hours as needed for severe breakthrough pain. (3) Cellulitis of left foot: Plan: * As per #1 (4) Mood disorder: Plan: * On Doxepin (5) COPD (chronic obstructive pulmonary disease): Plan: * Continue Incruse Ellipta (6) Hyperlipidemia: Plan: * Continue Rosuvastatin (7) BPH loc w urin obs/LUTS: Plan: * Continue Flomax (8) Tremor: Plan: * Continue Lamictal Plan: Interventions as outlined above. Change PO Cipro to IV. Await vascular surgery input--ultimately if they opt to revascularize, he will require amputation which he was refusing as of last d/w vascular surgery in September Continue heparin gtt in the interim He is currently NPO until it is decided if he will go to the OR AM labs Will need PT/OT eval when able to participate Admission and Anticipated Discharge Date Admission Date: November 20, 2021 Subjective Patient seen on rounds this morning, remains in ER as bed hold. He is currently resting in bed, c/o excruciating pain in L foot. He has also has altered sensation in his left foot. He has an extensive history of PAD. Documented phone call w/ vascular surgery noted after his ER visit on 10/07 for worsening redness/swelling of his left foot. Appears he was started on abx, case d/w his vascular surgeon through [facility] who did not feel that the symptoms were due to an acute arterial occlusion. He was d/c'd home on course of oral antibiotics and has been followed by the wound clinic since then. Per documentation from discussion w/ vascular, pt's son had declined f/u in [facility] for his L foot issues/symptoms and didn't feel that they wanted to pursue any more surgeries, just pain control. Today, pt reports that he is now open/willing to pursue surgical correction of his ischemia. He simply states "do whatever you need to." Outpatient culture from 11/13 reported growth of Enterococcus and Pseudomonas. He is currently on Cipro and Vancomycin. MRI performed as outpatient now with findings of 3rd and 4th L toe osteomyelitis. Review of Systems Review of Systems: CONSTITUTIONAL: Denies weight loss/gain, fever and chills, fatigue, malaise, generalized weakness. HEENT: Denies changes in vision and hearing. RESPIRATORY: Denies SOB, cough, wheezing. CV: Denies palpitations, CP, lower extremity edema, orthopnea, PND. GI: Denies abdominal pain, nausea, vomiting and diarrhea. : Denies dysuria and urinary frequency, urgency, hesitancy. MUSCULOSKELETAL: L foot pain SKIN: Ulceration/wound L foot NEUROLOGICAL: Altered sensation L leg/foot. Denies headache, syncope, focal weakness. PSYCHIATRIC: Denies recent changes in mood. Denies anxiety and depression. Physical Exam Physical Exam: GENERAL: 86 yo well-developed, well-nourished elderly WM. NAD. LUNGS: Clear to auscultation bilaterally. No accessory muscle use. No W/R/R. CARDIOVASCULAR: Regular rate and rhythm. 2/6 [place]. ABDOMEN: Soft, non-tender and non-distended. BS normal x 4 quad. EXTREMITIES: L distal extremity with erythema noted mid pulido and distally. Very tender to palpation of dorsal L foot. Foot cool. No palpable peripheral pulses in L foot. NEUROLOGIC: A&O x3. PSYCHIATRIC: Cooperative. Appropriate mood and affect. SKIN: L 3rd toe dusky/purplish appearance. Ulceration w/ bleeding noted between base of 3rd/4th toe. Results & Data Results & Data ([facility]) Vital Signs (Past 12 Hours) Vital Signs Temp Pulse Resp BP Pulse Ox 11/21/21 07:14 37.0 C 73 20 144/80 H 94 11/21/21 05:33 70 16 168/79 H 95 11/21/21 03:03 77 12 156/104 H 93 11/21/21 02:01 71 16 143/81 H 93 11/21/21 00:00 75 16 151/86 H 94 Laboratory Results 11/20/21 15:40 11/21/21 06:55 Spec: [id number] Collected: 11/13/21 Received: 11/13/[address]: Janet Roa, DO Source: Toe,Left Fourth OV Order: Ordered: Surf Wnd Cul/Sm Comments: Comment left 3rd to 4th toe Queries: Comment left 3rd to 4th toe Procedure Result Verified Site Gram Stain Final 11/13/21 Gram Stain Result No WBCs Seen Moderate Gram Positive Cocci Surface Wound Culture Final 11/16/21 Organism 1 Pseudomonas aeruginosa Quantity Few Sens Sensitivities to Follow +MixWound Plus Low Counts of Probable Skin Kimber Organism 2 Enterococcus faecalis Quantity Moderate Sens Sensitivities to Follow P aerugino E faecalis RX M.I.C. RX M.I.C. --- --------- --- --------- Ampicillin S <=2 Cefepime S 4 Ceftazidime S <=1 Ciprofloxacin S <=0.25 Daptomycin S <=0.5 Gentamicin S <=4 Gent Synergy R >500 Levofloxacin S 1 Meropenem S 2 Penicillin S 2 Strep Synergy S <=1000 Tobramycin S <=4 Pip/Tazo S <=16 Vancomycin S 2 Enterococcus faecalis: Positive Combo 33 Streptomycin Synergy Screen S Gentamicin Synergy Screen R S = SENSITIVE I = INTERMEDIATE R = RESISTANT Diagnostic Findings US arterial duplex left lower extremity CLINICAL HISTORY: arterial occlusion dorsalis pedis. Nonhealing left foot wound. COMPARISON STUDY: Left leg venous Doppler 10/06/2021.. FINDINGS: Calcified plaque within the left common femoral artery. Normal velocities and biphasic waveforms within the left common femoral and proximal superficial femoral arteries. Monophasic low velocity waveforms within the mid left superficial femoral artery. Complete occlusion within the distal left superficial femoral artery, popliteal artery, and calf arteries. This remains unchanged compared to the prior venous Doppler study. IMPRESSION: Occluded arteries of the left lower extremity extending from the distal superficial femoral artery to the dorsalis pedis artery. This is unchanged from the 2720 venous Doppler study. ACT 112: Negative or not required by law. Electronically signed by: Wing Forrest M.D. 11/21/2021 8:36 AM Dictated:11/21/21 0834 Transcribed: 11/21/21 0834 PG Care Time/CCT Total # of Minutes Spent Total Time Spent with Patient: Total time spent is greater than 50% in coordination of care (as documented) at patient's floor/unit and/or counseling patient: Coding Level of Care Code 00199 Subseq Hosp Care Lvl 3 Diagnoses Acute osteomyelitis of left foot M86.172 PAD (peripheral artery disease) I73.9 Cellulitis of left foot L03.116 Mood disorder F39 COPD (chronic obstructive pulmonary disease) J44.9 Hyperlipidemia E78.5 BPH loc w urin obs/LUTS N40.1 Tremor R25.1
[2021-11-21] MEDS: VANCOMYCIN HCL 1,500 MG in SODIUM CHLORIDE 0.9% 500 ML IV SCH (12:22)
--- NOTE | 2021-11-21 12:49 | Consultation ---
Date of Consultation November 21, 2021 Assessment & Plan (1) PAD (peripheral artery disease): Pt with known chronic, long arterial occlusion of LLE, likely due to embolism from pop art aneurysm. While he had been asymptomatic prior to injuring his toes, he now has developed severe infection with osteomyelitis in L foot/toes. This is unlikely to heal due to his severe PAD. Pt also seen by Dr Gray today, who discussed findings with pt and his son. Pt is willing to consider surgery for limb salvage. Recommend pt undergo LLE angio in OR on Wednesday for eval and surgical planning. He will then possibly undergo LLE bypass later in the week depending on the angio results. Pt is agreeable to this. Will order vein mapping and echo if not already ordered, in preparation for possible surgery next week. Treatment of osteomyelitis per medicine. (2) AAA (abdominal aortic aneurysm): Pt with known AAA and R internal iliac aneurysm, but unclear when last imaging performed. Will order aortoiliac US to eval. Patient was seen, examined, and chart reviewed. Agree with exam and treatment plan of the Vascular PA. History of Present Illness Reason for Consultation: PAD Attending Physician: Giovanni Wilcox MD History of Present Illness 86 yo m with hx of aneurysmal disease, PAD, COPD, hyperlipidemia, neuropathy, BPH, admitted with osteomyelitis of L toes/foot, seen in consultation today for PAD of LLE. Pt previously known to Dr Gray for emergent RLE revascularization in 2018 via thrombectomy/embolectomy of RLE and stent repair of his pop aneruysm, after his R pop aneurysm caused acute thrombosis of RLE. He was known to have L pop aneurysm and AAA as well, but transferred his care back to [facility] post operatively and was last seen by them in spring. According to notes from [facility] vascular surgery, pt has had L pop art occlusion since 2019, but did not wish to pursue surgical treatment and was relatively asymptomatic. Pt states he injured his L foot about 6 weeks ago and has been taking care of it at home and seeing the wound clinic regularly. States his L foot became more painful and discolored and swollen over past1 week. Pt is chronically unsteady on his feet and does not ambulate long distances, but denies any claudication of calves. Has not had long standing rest pain, but states his whole L foot is painful now. MRI indicates acute osteomyelitis of LLE. Arterial imaging here redemonstrates LLE arterial occlusi ons. Allergies Allergy/AdvReac Type Severity Reaction Status Date / Time Penicillins Allergy Severe SHOCK Verified 11/20/21 13:54 aspirin Allergy Intermediate Swelling Verified 11/20/21 13:54 Home Medications Medication Instructions Recorded Confirmed Type multivitamin (Daily Multi-Vitamin) 1 tab PO DAILY #30 tab 03/09/19 11/20/21 Rx ipratropium 20 mcg-albuterol 100 1 puffs INHALATION QID PRN gm 07/07/19 11/20/21 History mcg/actuation mist for inhalation tiotropium bromide 18 mcg capsule 1 cap INHALATION DAILY puffs 07/07/19 11/20/21 History with inhalation device tamsulosin 0.4 mg capsule 0.4 mg PO DAILY cap 09/21/19 11/20/21 History clopidogrel 75 mg tablet 75 mg PO QAM 05/27/20 11/20/21 History esomeprazole magnesium 20 mg 20 mg PO DAILY 05/27/20 11/20/21 History capsule,delayed release (Nexium) bee pollen 550 mg capsule 550 mg PO DAILY 11/16/20 11/20/21 History lidocaine 5 % topical patch 1 patch TOP DAILY PRN #15 ea 12/12/20 11/20/21 Rx acetaminophen 650 mg 650 mg PO Q8H PRN 12/26/20 11/20/21 History tablet,extended release gabapentin 600 mg tablet 600 mg PO TID 90 Days #270 tab 08/12/21 11/20/21 Rx finasteride 5 mg tablet 5 mg PO DAILY 08/20/21 11/20/21 History mecobalamin (vitamin B12) 1,000 1,000 mcg SUBLINGUAL DAILY 08/20/21 11/20/21 History mcg disintegrating tablet,sublingual diclofenac sodium 1 % topical gel 4 g TOPICAL QID PRN 10/06/21 11/20/21 History lamotrigine 300 mg tablet,extended 300 mg PO .DAILY AT 1500 10/06/21 11/20/21 History release 24 hr melatonin 10 mg capsule 10 mg PO HS cap 10/29/21 11/20/21 History ciprofloxacin HCl 250 mg tablet 250 mg PO BID 14 Days #28 tab 11/17/21 11/20/21 Rx coenzyme Q10 100 mg capsule 100 mg PO DAILY 11/20/21 11/20/21 History (CoQ-10) diphenhydramine 25 1 tab PO HS PRN 11/20/21 11/20/21 History mg-acetaminophen 500 mg tablet doxepin 25 mg capsule 50 mg PO HS 11/20/21 11/20/21 History nystatin 100,000 unit/gram topical 1 applic TOPICAL BID PRN 11/20/21 11/20/21 History powder tramadol 50 mg tablet 50 mg PO Q6 PRN 11/20/21 11/20/21 History Patient History Medical History Abscess of forearm, right Absent foot pulse Acid reflux disease Acute kidney injury Acute metabolic encephalopathy Aneurysm of abdominal aorta Aneurysm of right internal iliac artery Aspiration pneumonia Bilateral renal cysts Carotid artery narrowing Cellulitis of forearm, right Chronic obstructive pulmonary disease COPD (chronic obstructive pulmonary disease) will continue home meds. GERD (gastroesophageal reflux disease) Hyponatremia Incarcerated right inguinal hernia Metabolic encephalopathy Pneumonia Sensorineural hearing loss Sepsis Trigeminal neuralgia Surgical History H/O fasciotomy H/O tooth extraction History of inguinal hernia repair Hx of shoulder surgery S/P debridement 11/25/20 Dr. Delvis Gale- Right Forearm Debridement of Necrotic Abscess(Right) S/P vascular surgery 06/26/19 right superficial femoral artery cutdown, RLE angiogram, right popliteal artery aneurysm excision with viabahn stent graft- Dr. Ryder Roman Status post ear surgery Family History Mother Myocardial infarction Other Family history non-contributory Denies family history of Ovarian cancer Prostate cancer Breast cancer Colorectal cancer Social History Smoking Status: Unknown if ever smoked Tobacco Type: Cigarettes Second Hand Exposure: No; Hx Alcohol Use: Yes Alcohol type: hard liquor Hx Substance Use: No Preferred Language: Faroese Communication Ability: Effective Visual Impairment: No Limitations Hearing Ability: Hard of Hearing Dock Builder Required: No Beliefs That Will Affect Care: None marital status: Current Living Situation: Spouse current occupational status: retired How many Children do You have: 3 Feels Safe at Home: Yes Safety Concerns Comment: frequent falls Childhood Exposure to Second-Hand Smoke: Yes caffeine: Yes Dental Care, Regularly: No Physical Activity Frequency: 1-2 Times per Week Seatbelt Use: always Sunscreen Use: No Do you think of yourself as: straight/heterosexual Gender Identity: Male Assistive Devices: Cane and Walker Review of Systems Review of Systems: All systems reviewed & are unremarkable except as noted in HPI & below Physical Exam Constitutional: WD/WN, vitals as above cooperative and comfortable; not in distress ENMT: Ears: + hearing impairment Neck: trachea midline Respiratory: normal respiratory effort, lungs clear to auscultation Cardiovascular: Rate/Rhythm: regular rate and regular rhythm Vessels: femoral pulses present, posterior tibial pulses present (nonpalpable BLE), dorsalis pedis pulses present (nonpalpable BLE) and radial pulses present; + abnormal peripheral pulses Extremities: normal capillary refill (except L 3rd toe) and + edema (LLE) Gastrointestinal (Abdomen): Inspection/Auscultation: abdomen normal to inspection and normal bowel sounds Percussion/Palpation: abdomen soft; abdomen nontender Musculoskeletal: no cyanosis or clubbing, extremities motor strength 5/5 Skin: + rash (L groin fungal), + wound, + erythema (L ankle to toetips) and + eschar (L 3rd toe) Neurologic: moves all extremities and awake; no focal motor deficits and not confused Psychiatric: A+Ox3, euthymic affect Results & Data ([facility]) Vital Signs (Past 12 Hours) Vital Signs Temp Pulse Resp BP Pulse Ox 11/21/21 07:14 37.0 C 73 20 144/80 H 94 11/21/21 05:33 70 16 168/79 H 95 11/21/21 03:03 77 12 156/104 H 93 11/21/21 02:01 71 16 143/81 H 93
[2021-11-21 14:47] LABS: Partial Thromboplastin Ratio 2.1
--- NOTE | 2021-11-21 16:04 | Ultrasound Report ---
ULTRASOUND AORTA CLINICAL HISTORY: AAA TECHNIQUE: Real-time, duplex and color Doppler sonographic images of the aorta were obtained. Comparison: Comparison is made to CT abdomen pelvis 02/23/2019 FINDINGS: The proximal aorta at the liver was not seen well. The aortic lumen is patent. The aortic w all is calcified consistent with atherosclerotic changes. Measurements: Proximal aorta 2.0 cm Mid aorta 4.3 cm Distal aorta 1.7 cm RCIA 2.2 cm LCIA 1.3 cm IMPRESSION: Abdominal aortic aneurysm measuring up to 4.3 cm. This is unchanged from prior CT in 2019. ACT 112: Negative or not required by law. Electronically signed by: Kirill Childress M.D. 11/21/2021 4:03 PM
--- NOTE | 2021-11-21 16:48 | Ultrasound Report ---
US venous mapping LE CLINICAL HISTORY: for bypass . Left leg reported to be extremely sensitive in painful COMPARISON: None available at the time of this dictation. TECHNIQUE: Bilateral lower extremity real-time ultrasound was performed for venous mapping.Widths are provided in millimeters. FINDINGS: Right GSV Groin 9.6 x 5.8 Thigh proximal 7.3 x 5.2 Thigh mid 10.2 x 5.5 Thigh distal 12.7 x 5.1 Knee 6.8 x 5.2 Calf proximal 6.4 x 4.0 Calf mid 7.1 x 4.2 Calf distal 8.2 x 4.5 Ankle 6.8 x 5.4 Right SSV Behind the knee 17.2 x 6 2.6 Calf proximal 9.4 x 4.0 Calf mid 6.2 x 3.2 Calf distal 8.6 x 3.7 Ankle 7.3 x 4.1 Left GSV Groin 10.1 x 8.9 Thigh proximal 9.1 x 6.8 Thigh mid 8.7 x 5.9 Thyroid distal 9.1 x 4.7 Knee 2.4 x 4.6 Calf proximal 2.6 x 3.4 Calf mid 3.7 x 3.9 Calf distal 4.7 x 4.4 with splitting of the distal main Ankle 3.4 x 1.7 Left SSV Behind the knee 17.9 x 3.3 Calf proximal 8.5 x 3.3 Calf mid 13.2 x 2.6 Calf distal 4.7 x 3.0 Ankle 3.8 x 5.1 Impression: Venous mapping as above ACT 112: Negative or not required by law. Electronically signed by: Joce Kraft M.D. 11/21/2021 4:47 PM
[2021-11-21] MEDS: NYSTATIN POWDER 15GM BTL EXT SCH (16:59)
[2021-11-21] MEDS: lamoTRIgine 100 MG TAB PO SCH (17:00)
[2021-11-21] MEDS: CIPROFLOXACIN / D5W 400 MG/200 ML BAG IV SCH (20:35)
[2021-11-21] MEDS: DOXEPIN HCL 50 MG CAPSULE PO SCH (20:35)
--- NOTE | 2021-11-21 22:53 | XCELERA ---
[id number]
[2021-11-21] MEDS: traMADol HCL 50 MG TABLET PO PRN (23:54)
[2021-11-22] MEDS: HEPARIN SODIUM/DEXTROSE 25,000 UNITS/500 ML BAG IV SCH (02:30)
[2021-11-22 03:31] LABS: Appearance Urine Clear (Clear); Bilirubin Urine Negative (Negative); Blood Urine Negative (Negative); Color Urine Yellow; Glucose Urine UA Negative (Negative); Ketones Urine Negative (Negative); Leukocyte Esterase Urine Negative (Negative); Nitrite Urine Negative (Negative); Protein Urine Negative (Negative); Specific Gravity Urine 1.011 (1.000-1.030); Urobilinogen Urine Negative (Negative); pH Urine 7.5 (4.5-7.5)
[2021-11-22] MEDS: ACETAMINOPHEN 1,000 MG/100 ML VIAL IV SCH ×3 (05:32→22:50)
[2021-11-22] MEDS ORDERED: CLINDAMYCIN 600 MG/54 ML BAG IV ONE (06:00)
[2021-11-22] MEDS: CLOPIDOGREL BISULFATE 75 MG TAB PO SCH (07:52)
[2021-11-22] MEDS: GABAPENTIN 600 MG TAB PO SCH ×3 (07:52→20:18)
[2021-11-22] MEDS: FINASTERIDE 5 MG TAB PO SCH (07:52)
[2021-11-22] MEDS: MULTIVITAMIN TAB PO SCH (07:52)
[2021-11-22] MEDS: NYSTATIN POWDER 15GM BTL EXT SCH (07:52)
[2021-11-22] MEDS: CYANOCOBALAMIN (B-12) 500 MCG TABLET PO SCH (07:52)
[2021-11-22] MEDS: TAMSULOSIN HCL 0.4 MG CAP PO SCH (07:54)
[2021-11-22] MEDS: ROSUVASTATIN CALCIUM 20 MG TAB PO SCH (07:54)
[2021-11-22] MEDS: PANTOprazole 40 MG TAB PO SCH (07:54)
[2021-11-22] MEDS: UMECLIDINIUM BROMIDE 62.5MCG/BLISTER 7 PUFFS/INHALER INH SCH (07:55)
[2021-11-22] MEDS: CIPROFLOXACIN / D5W 400 MG/200 ML BAG IV SCH ×2 (07:58→20:18)
[2021-11-22 09:53] LABS: Eosinophils # (auto) 0.03 K/uL (0-0.5); Eosinophils % (auto) 0.5 %; Hematocrit (blood only) 32.2 % (42-52); Hemoglobin 10.4 g/dL (14.0-18.0); Immature Granulocytes # (auto) 0.02 K/uL (0.00-0.02); Immature Granulocytes % (auto) 0.3 %; Lymphocytes # (auto) 0.95 K/uL (1.2-3.4); Lymphocytes % (auto) 16.5 %; Mean Corpuscular Hemoglobin 29.6 pg (25-34); Mean Corpuscular Hgb Conc 32.3 g/dL (32-36); Mean Corpuscular Volume 91.7 fL (80-100); Mean Platelet Volume 8.8 fL (7.4-10.4); Monocytes # (auto) 0.31 K/uL (0.11-0.59); Monocytes % (auto) 5.4 %; Neutrophils # (auto) 4.45 K/uL (1.4-6.5); Neutrophils % (auto) 77.3 %; Platelet Count 257 K/uL (130-400); RDW Coefficient of Variation 13.8 % (11.5-14.5); RDW Standard Deviation 45.9 fL (36.4-46.3); Red Blood Count 3.51 M/uL (4.7-6.1); White Blood Count 5.76 K/uL (4.8-10.8)
[2021-11-22 10:23] LABS: Partial Thromboplastin Time 51.7 Seconds (21.0-31.0)
[2021-11-22 11:06] LABS: BUN Creatinine Ratio 14.2 (10-20); Calcium 8.5 mg/dl (8.5-10.1); Creatinine Clr Calc Pharmacy 43.6 ml/min; Est GFR (African American) 58.5 ml/min; Est GFR (Non-African American) 50.5 ml/min; Potassium 3.4 mmol/L (3.5-5.1)
[2021-11-22] MEDS: VANCOMYCIN HCL 1,500 MG in SODIUM CHLORIDE 0.9% 500 ML IV SCH (11:27)
[2021-11-22] MEDS: lamoTRIgine 100 MG TAB PO SCH (15:28)
--- NOTE | 2021-11-22 17:18 | Hospitalist Progress Note ---
Date of Service November 22, 2021 Assessment & Plan (1) Acute osteomyelitis of left foot: Plan: Foot MRI on 11/19 with acute osteomyelitis; wound culture from [facility] wound clinic 11/13/2021 positive for Pseudomonas, Enterococcus. - Blood cultures from 11/20 with Gram(+) cocci in clusters. - Continue IV vancomycin & ciprofloxacin - Wound care nursing consult placed. (2) PAD (peripheral artery disease): Plan: With ischemic foot. Patient is a chronic vasculopath with history of AAA, carotid artery stenosis, right internal iliac aneurysm, popliteal aneurysm; review of records show that he was started on Xarelto though it is unclear how adherent patient was. - Continue heparin, Plavix, and rosuvastatin. - Pain control PRN - Vascular surgery following: Plan for angiography on Wednesday, bypass if possible after that. (3) Mood disorder: Plan: Pleasant today. - Continue doxepin (4) COPD (chronic obstructive pulmonary disease): Plan: No shortness of breath or wheezing today. - Continue Incruse Ellipta (5) Hyperlipidemia: Plan: - Continue rosuvastatin (6) BPH loc w urin obs/LUTS: Plan: - Continue Flomax (7) Tremor: Plan: - Continue Lamictal Admission and Anticipated Discharge Date Admission Date: November 20, 2021 Subjective Doing well today. No major issues. Toes are painful, but not too bad. Reports no fevers/chills, chest pain, shortness of breath, abdominal pain, nausea, or vomiting. Physical Exam Constitutional: WD/WN, vitals as above Eyes: EOM intact bilaterally; no conjunctival abnormality ENMT: external ear and nose normal, oropharynx normal Neck: trachea midline, no thyromegaly normal visual inspection Respiratory: normal respiratory effort, lungs clear to auscultation no respiratory distress Cardiovascular: RRR, no murmur, no edema Gastrointestinal (Abdomen): Inspection/Auscultation: abdomen normal to in spection; abdomen not distended Musculoskeletal: no cyanosis or clubbing, extremities motor strength 5/5 Skin: no rashes, warm and dry Toes with discoloration and mottling on middle toe. Neurologic: moves all extremities and awake Psychiatric: Orientation: alert, oriented to person and cooperative Results & Data Results & Data ([facility]) Vital Signs (Past 12 Hours) Vital Signs Temp Pulse Pulse Resp BP BP Pulse Ox 11/22/21 15:44 36.3 C L 79 20 103/72 100 11/22/21 14:34 67 11/22/21 10:59 36.8 C 72 20 110/58 L 93 11/22/21 07:22 36.8 C 74 20 171/90 H 94 11/22/21 06:19 71 PG Care Time/CCT Total # of Minutes Spent Total Time Spent with Patient: Total time spent is greater than 50% in coordination of care (as documented) at patient's floor/unit and/or counseling patient: Coding Level of Care Code 69570 Subseq Hosp Care Lvl 3 Diagnoses Acute osteomyelitis of left foot M86.172 PAD (peripheral artery disease) I73.9 Mood disorder F39 COPD (chronic obstructive pulmonary disease) J44.9 Hyperlipidemia E78.5 BPH loc w urin obs/LUTS N40.1 Tremor R25.1
[2021-11-22] MEDS: DOXEPIN HCL 50 MG CAPSULE PO SCH (20:18)
[2021-11-23] MEDS: HEPARIN SODIUM/DEXTROSE 25,000 UNITS/500 ML BAG IV SCH ×2 (04:48→15:27)
[2021-11-23] MEDS: ACETAMINOPHEN 1,000 MG/100 ML VIAL IV SCH ×3 (05:53→22:37)
[2021-11-23] MEDS: CIPROFLOXACIN / D5W 400 MG/200 ML BAG IV SCH ×2 (07:58→20:31)
[2021-11-23] MEDS: CLOPIDOGREL BISULFATE 75 MG TAB PO SCH (07:58)
[2021-11-23] MEDS: CYANOCOBALAMIN (B-12) 500 MCG TABLET PO SCH (07:59)
[2021-11-23] MEDS: PANTOprazole 40 MG TAB PO SCH (07:59)
[2021-11-23] MEDS: UMECLIDINIUM BROMIDE 62.5MCG/BLISTER 7 PUFFS/INHALER INH SCH (07:59)
[2021-11-23] MEDS: TAMSULOSIN HCL 0.4 MG CAP PO SCH (07:59)
[2021-11-23] MEDS: MULTIVITAMIN TAB PO SCH (07:59)
[2021-11-23] MEDS: GABAPENTIN 600 MG TAB PO SCH ×3 (07:59→20:36)
[2021-11-23] MEDS: FINASTERIDE 5 MG TAB PO SCH (07:59)
[2021-11-23] MEDS: ROSUVASTATIN CALCIUM 20 MG TAB PO SCH (07:59)
[2021-11-23] MEDS: NYSTATIN POWDER 15GM BTL EXT SCH (08:00)
[2021-11-23 09:01] LABS: Hematocrit (blood only) 36.1 % (42-52); Hemoglobin 11.9 g/dL (14.0-18.0); Mean Corpuscular Hemoglobin 30.1 pg (25-34); Mean Corpuscular Volume 91.2 fL (80-100); Mean Platelet Volume 8.9 fL (7.4-10.4); Platelet Count 272 K/uL (130-400); RDW Coefficient of Variation 13.8 % (11.5-14.5); RDW Standard Deviation 45.8 fL (36.4-46.3); Red Blood Count 3.96 M/uL (4.7-6.1); White Blood Count 5.84 K/uL (4.8-10.8)
[2021-11-23 09:13] LABS: Partial Thromboplastin Ratio 1.7; Partial Thromboplastin Time 43.6 Seconds (21.0-31.0)
[2021-11-23 09:18] LABS: BUN Creatinine Ratio 12.6 (10-20); Calcium 9.1 mg/dl (8.5-10.1); Creatinine Clr Calc Pharmacy 47.4 ml/min; Est GFR (African American) 58.5 ml/min; Est GFR (Non-African American) 50.5 ml/min; Magnesium 2.1 mg/dl (1.7-2.4); Potassium 3.8 mmol/L (3.5-5.1)
[2021-11-23] MEDS ORDERED: VANCOMYCIN TROUGH ONE (11:30)
[2021-11-23] MEDS: VANCOMYCIN HCL 1,500 MG in SODIUM CHLORIDE 0.9% 500 ML IV SCH (11:54)
--- NOTE | 2021-11-23 13:04 | Hospitalist Progress Note ---
Date of Service November 23, 2021 Assessment & Plan (1) Acute osteomyelitis of left foot: Plan: Foot MRI on 11/19 with acute osteomyelitis; wound culture from [facility] wound clinic 11/13/2021 positive for Pseudomonas, Enterococcus. - Blood cultures from 11/20 with Gram(+) cocci in clusters. - Continue IV vancomycin & ciprofloxacin - Wound care nursing consult placed. WBC and vitals stable today. (2) PAD (peripheral artery disease): Plan: With ischemic foot. Patient is a chronic vasculopath with history of AAA, carotid artery stenosis, right internal iliac aneurysm, popliteal aneurysm; revi ew of records show that he was started on Xarelto though it is unclear how adherent patient was. - Continue heparin, Plavix, and rosuvastatin. - Pain control PRN - Vascular surgery following: Plan for angiography on Wednesday, bypass if possible after that. (3) Mood disorder: Plan: Pleasant today. No concerns. - Continue doxepin (4) COPD (chronic obstructive pulmonary disease): Plan: No shortness of breath or wheezing today. - Continue Incruse Ellipta (5) Hyperlipidemia: Plan: - Continue rosuvastatin (6) BPH loc w urin obs/LUTS: Plan: - Continue Flomax & finasteride (7) Tremor: Plan: - Continue Lamictal Admission and Anticipated Discharge Date Admission Date: November 20, 2021 Subjective No major complaints today. Reports no fevers/chills, chest pain, shortness of breath, abdominal pain, nausea, or vomiting. Physical Exam Constitutional: WD/WN, vitals as above Eyes: EOM intact bilaterally; no conjunctival abnormality ENMT: external ear and nose normal, oropharynx normal Neck: trachea midline, no thyromegaly normal visual inspection Respiratory: normal respiratory effort, lungs clear to auscultation no respiratory distress Cardiovascular: RRR, no murmur, no edema Gastrointestinal (Abdomen): Inspection/Auscultation: abdomen normal to inspection; abdomen not distended Musculoskeletal: no cyanosis or clubbing, extremities motor strength 5/5 Skin: no rashes, warm and dry Toes purple on left foot Neurologic: moves all extremities and awake Psychiatric: Orientation: alert, oriented to person and cooperative Results & Data Results & Data ([facility] [place]) Vital Signs (Past 12 Hours) Vital Signs Temp Pulse Pulse Resp BP Pulse Ox 11/23/21 12:24 36.6 C 80 18 109/58 L 93 11/23/21 07:33 36.8 C 75 20 156/90 H 93 11/23/21 06:21 73 11/23/21 04:00 36.6 C 72 20 157/79 H 92 11/23/21 01:51 66 PG Care Time/CCT Total # of Minutes Spent Total Time Spent with Patient: Total time spent is greater than 50% in coordination of care (as documented) at patient's floor/unit and/or counseling patient: Coding Level of Care Code 93764 Subseq Hosp Care Lvl 2 Diagnoses Acute osteomyelitis of left foot M86.172 PAD (peripheral artery disease) I73.9 Mood disorder F39 COPD (chronic obstructive pulmonary disease) J44.9 Hyperlipidemia E78.5 BPH loc w urin obs/LUTS N40.1 Tremor R25.1
--- NOTE | 2021-11-23 14:05 | Pharmacy Report ---
Pharmacy [facility] Short Note - Date of Service November 23, 2021 - Assessment & Plan Assessment 86 year old M receiving vancomycin and cipro for treatment of left foot osteomyelitis. h/o severe penicillin allergy. * Wound culture from [facility] wound clinic 11/13/2021 positive for Pseudomona s and Enterococcus. * 1/2 BC from 11/20/21 grew gram positive cocci in clusters - staph PCR negative Day # 4 of antimicrobial therapy. Plan Vancomycin * Current dose: 1500 mg IV every 24 hours * Trough level obtained today resulted at 12.4 mcg/mL * estimated steady state AUC/AMAURY = 511 mg/L.hr (target AUC/AMAURY of 400-600 mg/L.hr) * estimated steady state trough = 15 mg/L * Continue dose of 1500 mg IV every 24 hours and repeat drug level in 48-72 hours Continues on Cipro 400 mg IV q12h Pharmacy will continue to follow and will adjust dose/frequency as necessary. Thank you.
[2021-11-23] MEDS: lamoTRIgine 100 MG TAB PO SCH (15:41)
[2021-11-23 15:54] LABS: Partial Thromboplastin Ratio 1.9
[2021-11-23 16:01] LABS: Partial Thromboplastin Time 49.3 Seconds (21.0-31.0)
[2021-11-23] MEDS: DOXEPIN HCL 50 MG CAPSULE PO SCH (20:36)
[2021-11-24] MEDS ORDERED: SODIUM CHLORIDE 0.9% 500 ML IV SCH (06:00)
[2021-11-24] MEDS ORDERED: CLINDAMYCIN 600 MG/54 ML BAG IV SCH (06:00)
[2021-11-24] MEDS ORDERED: SODIUM CHLORIDE 0.9% 1000ML 1,000 ML IV SCH ×2 (06:00→09:48)
[2021-11-24] MEDS: HEPARIN SODIUM/DEXTROSE 25,000 UNITS/500 ML BAG IV SCH ×2 (06:00→10:00)
[2021-11-24] MEDS ORDERED: fentaNYL citrate 100 MCG/2 ML VIAL ONE (07:41)
[2021-11-24] MEDS ORDERED: MIDAZOLAM HCL 1 MG/ML 2ML VIAL ONE (07:41)
--- NOTE | 2021-11-24 07:56 | History & Physical Bridge Note ---
Date of Service November 24, 2021 History & Physical Bridge Note Patient for arteriography with possible intervention. I have discussed the risks options and benefits of the procedure with the patient. The patient understands the risks options and benefits and agrees to the procedure. I have examined the patient, reviewed the History & Physical and in the interval since the performance of the History & Physical I have noted the following changes of clinical significance: no changes noted
[2021-11-24] MEDS: MULTIVITAMIN TAB PO SCH (08:27)
[2021-11-24] MEDS: FINASTERIDE 5 MG TAB PO SCH (08:27)
[2021-11-24] MEDS: CLOPIDOGREL BISULFATE 75 MG TAB PO SCH (08:27)
[2021-11-24] MEDS: NYSTATIN POWDER 15GM BTL EXT SCH (08:27)
[2021-11-24] MEDS: CYANOCOBALAMIN (B-12) 500 MCG TABLET PO SCH (08:27)
[2021-11-24] MEDS: GABAPENTIN 600 MG TAB PO SCH ×3 (08:27→20:46)
[2021-11-24] MEDS: ROSUVASTATIN CALCIUM 20 MG TAB PO SCH (08:28)
[2021-11-24] MEDS: TAMSULOSIN HCL 0.4 MG CAP PO SCH (08:28)
[2021-11-24] MEDS: UMECLIDINIUM BROMIDE 62.5MCG/BLISTER 7 PUFFS/INHALER INH SCH (08:28)
[2021-11-24] MEDS: PANTOprazole 40 MG TAB PO SCH (08:28)
[2021-11-24] MEDS ORDERED: Nursing to Pharmacy Communication SCH (08:30)
--- NOTE | 2021-11-24 08:41 | Pre Anesthesia Assessment ---
Date of Service November 24, 2021 Pre Sedation Assessment Vital Signs Temp Pulse Pulse Resp BP BP Pulse Ox 11/24/21 08:27 84 16 152/96 H 100 11/24/21 08:09 36.5 C 78 18 157/103 H 95 11/24/21 07:28 36.7 C 76 18 177/98 H 94 11/24/21 03:38 36.7 C 72 20 178/86 H 92 11/23/21 23:12 36.9 C 71 20 126/69 91 11/23/21 22:30 73 11/23/21 18:15 37.0 C 77 20 165/76 H 93 11/23/21 15:32 36.4 C L 76 20 143/75 H 95 11/23/21 14:19 75 11/23/21 12:24 36.6 C 80 18 109/58 L 93 Cardiovascular RRR, no murmur, no edema Respiratory normal respiratory effort, lungs clear to auscultation Pre-Sedation Airway Assessment Smoking Status: Unknown if ever smoked Hx Sleep Apnea: No Short, Thick Neck: No Thyromental Distance: > or= 3.5 Finger Breadths Oral Cavity: + Dental Abnormalities Mallampati Class: II ASA: ASA3 NPO Status Date of Last Intake of Fluids: 11/23/21 Time of Last Intake of Fluids: 19:00 Date of Last Intake of Solid Food: 11/23/21 Time of Last Intake of Solid Foods: 19:00 Procedure Planning Contraindications for Sedation: none Current Medications Reviewed: Yes Notes The planned sedation has been discussed with the patient. Informed Consent was obtained. I have identified the patient, determined the appropriateness of sedation and have assessed the patient immediately prior to the procedure. All medicine(s) and interventions are by my order.
[2021-11-24] MEDS ORDERED: VISIPAQUE IV PRN (08:59)
[2021-11-24] MEDS ORDERED: LIDOCAINE 1% LOCAL 20 ML VIAL INJ ONE (08:59)
--- NOTE | 2021-11-24 09:07 | Post Anesthesia Assessment ---
Date of Service November 24, 2021 Post Sedation Assessment Vital Signs Temp Pulse Pulse Resp BP BP Pulse Ox 11/24/21 09:03 84 16 127/92 94 11/24/21 08:58 83 16 124/85 99 11/24/21 08:55 86 16 128/103 H 99 11/24/21 08:50 85 16 131/86 100 11/24/21 08:45 80 16 124/93 100 11/24/21 08:40 86 16 136/86 100 11/24/21 08:27 84 16 152/96 H 100 11/24/21 08:09 36.5 C 78 18 157/103 H 95 11/24/21 07:28 36.7 C 76 18 177/98 H 94 11/24/21 03:38 36.7 C 72 20 178/86 H 92 11/23/21 23:12 36.9 C 71 20 126/69 91 11/23/21 22:30 73 11/23/21 18:15 37.0 C 77 20 165/76 H 93 11/23/21 15:32 36.4 C L 76 20 143/75 H 95 11/23/21 14:19 75 11/23/21 12:24 36.6 C 80 18 109/58 L 93 Recovery Score Activity: Moves 4 extremities Respiration: Deep Breath/Cough Circulation: +/-20% PreAnes Value Consciousness: Fully Awake Oxygen Saturation: > 92% On Room Air Post Anesthesia Score: 10 Discharge Sedation Level of Care: Fast Track Phase II Post Sedation Plan On clinical assessment, the patient appears to have tolerated the sedation without complications. Patient is recovering as anticipated. Patient will continue to be monitored by nursing and may be discharged when sedation discharge criteria are met per below protocol. Upon Completions of procedure up to 15 minutes continue every 5 minute vital signs and the P.A.R. score; then discharge to a Phase I or Fast Track to Phase II per the following guidelines: * Discharge Patient to appropriate Phase II area if PAR is 8 or greater or return to pre- procedure baseline. The post - procedure orders will be as directed. * If PAR score is less than 8 or not return to pre-procedure baseline then patient will follow Phase I monitoring till PAR is reached for Phase II. The Phase I may be done in procedure room or may call to secure a Phase I area. * If naloxone or flumazenil are used for reversal, hold in Phase I for continued monitoring from when last reversal dose was given for a minimum of 60 minutes or longer pending the nurse and/or physician discretion of patient condition before discharge to Phase II. Please call the Sedation Physician to re-evaluate and complete post-note for discharge to Phase II area. Do NOT discharge from procedure sedation or Phase 1 until post- sedation evaluation note is complete by procedure /sedation MD Sedation Discharge Instructions to be given to the patient at discharge to home.
--- NOTE | 2021-11-24 09:07 | Procedure Note ---
Angiogram Post Procedure Fluoroscopy Time (minutes): 1.2 Conscious Sedation Time (minutes): 23 Radiation (mGy): 41 Contrast: 20 Post Operative Report Pre & Post Diagnosis Operation Date: 11/24/21 08:00 Pre-Op Diagnosis: left popliteal artery occlusion, gangrene of toes Post-Op Diagnosis: left popliteal artery occlusion, gangrene of toes I identified the patient and participated in the time-out.: Yes Procedure Operation Date: 11/24/21 08:00 Actual Procedures p Left Lower Extermity Arteriogram, mechanical closure of right femoral artery, moderate sedation [id number] - Jamel Gray MD Surgeon Jamel Gray MD Armature Inspector none Estimated Blood Loss 5 Findings Consistent with Post-Op Diagnosis Specimens none Anesthesia Type RN Sedation Complications none Disposition Accompanied Patient To Recovery: Yes Disposition: Recovery Room Indications This is an 86-year-old gentleman who presented with gangrenous changes to the toes of his left foot. 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 He is having significant pain in the left foot. Arteriography is recommended. I have discussed the risks options and benefits of the procedure with the patient. The patient understands the risks options and benefits and agrees to the procedure. Description of Procedure The patient was taken the angiogram suite and placed in the supine position. The groins were then prepped and draped in a sterile manner. Timeout was performed and the patient was identified. Local anesthetic was administered to the right groin. A percutaneous puncture was made in the right common femoral artery and a 5 [place] sheath inserted. Using an 035 Glidewire and a rim catheter the left iliac was cannulated from the right side and the rim catheter advanced down to the external iliac distally. Arteriography was then performed the left lower extremity which showed the common femoral artery superficial femoral artery and profundofemoral arteries to be patent and fairly large. There was occlusion of the superficial femoral artery at the adductor hiatus and complete occlusion of the popliteal artery. Anterior tibial peroneal and posterior tibial arteries were all occluded at their origins. The only reconstitution was the posterior tibial artery in the distal third of the calf. There is a narrowing seen at the ankle and the posterior tibial artery but this continues on and does supply the foot. No intervention was recommended at this time due to the anatomy of the occlusions. Hand-injection in the sheath showed the puncture to be in the common femoral artery proper. The puncture site was then closed using the Star closure device. Adequate hemostasis was obtained. Sterile dressings were applied.The patient left the operation room in satisfactory condition and tolerated the procedure well. All needle and sponge counts were correct at the end of the procedure. I attest to the content of the Intraoperative Record and any orders documented therein. Any exceptions are noted below.
[2021-11-24] MEDS: CIPROFLOXACIN / D5W 400 MG/200 ML BAG IV SCH ×2 (10:04→20:46)
[2021-11-24 11:15] LABS: Basophils # (auto) 0.01 K/uL (0-0.2); Basophils % (auto) 0.1 %; Eosinophils # (auto) 0.08 K/uL (0-0.5); Eosinophils % (auto) 1.1 %; Hematocrit (blood only) 36.9 % (42-52); Hemoglobin 12.2 g/dL (14.0-18.0); Immature Granulocytes # (auto) 0.04 K/uL (0.00-0.02); Immature Granulocytes % (auto) 0.6 %; Mean Corpuscular Hemoglobin 30.3 pg (25-34); Mean Corpuscular Hgb Conc 33.1 g/dL (32-36); Mean Corpuscular Volume 91.8 fL (80-100); Mean Platelet Volume 8.8 fL (7.4-10.4); Monocytes # (auto) 0.99 K/uL (0.11-0.59); Monocytes % (auto) 13.9 %; Neutrophils # (auto) 5.48 K/uL (1.4-6.5); Neutrophils % (auto) 77.3 %; Platelet Count 264 K/uL (130-400); RDW Coefficient of Variation 13.9 % (11.5-14.5); RDW Standard Deviation 46.8 fL (36.4-46.3); Red Blood Count 4.02 M/uL (4.7-6.1)
[2021-11-24 11:39] LABS: BUN Creatinine Ratio 11.6 (10-20); Calcium 9.3 mg/dl (8.5-10.1); Creatinine Clr Calc Pharmacy 46.6 ml/min; Est GFR (African American) 57.4 ml/min; Est GFR (Non-African American) 49.5 ml/min; Potassium 4.7 mmol/L (3.5-5.1)
[2021-11-24] MEDS: VANCOMYCIN HCL 1,500 MG in SODIUM CHLORIDE 0.9% 500 ML IV SCH (11:57)
--- NOTE | 2021-11-24 14:06 | Hospitalist Progress Note ---
Date of Service November 24, 2021 Assessment & Plan (1) Acute osteomyelitis of left foot: Plan: Foot MRI on 11/19 with acute osteomyelitis; wound culture from [facility] wound clinic 11/13/2021 positive for Pseudomonas, Enterococcus. - Blood cultures from 11/20 with / with Micrococcus; likely contaminant. - Continue IV vancomycin & ciprofloxacin - Wound care nursing consult placed. WBC and vitals stable today. (2) PAD (peripheral artery disease): Plan: With ischemic foot. Patient is a chronic vasculopath with history of AAA, carotid artery stenosis, right internal iliac aneurysm, popliteal aneurysm; review of records show that he was started on Xarelto though it is unclear how adherent patient was. - Continue heparin, Plavix, and rosuvastatin. - Pain control PRN - Vascular surgery following: Angiography on 11/24 did not show bypass-able vasculature from my read of the report Have paged Vascular Team to discuss. It would appear amputation would be required if the patient is willing. -> Also unclear what the plan for anticoagulation is for him. (3) Mood disorder: Plan: Pleasant today. No concerns. - Continue doxepin (4) COPD (chronic obstructive pulmonary disease): Plan: No shortness of breath or wheezing today. - Continue Incruse Ellipta (5) Hyperlipidemia: Plan: - Continue rosuvastatin (6) BPH loc w urin obs/LUTS: Plan: - Continue Flomax & finasteride (7) Tremor: Plan: - Continue Lamictal Admission and Anticipated Discharge Date Admission Date: November 20, 2021 Subjective No major complaints today. Toes do not hurt. Right groin site is not bleeding, and he reports no pain. Reports no fevers/chills, chest pain, shortness of breath, abdominal pain, nausea, or vomiting. Physical Exam Constitutional: WD/WN, vitals as above Eyes: EOM intact bilaterally; no conjunctival abnormality ENMT: external ear and nose normal, oropharynx normal Neck: trachea midline, no thyromegaly normal visual inspection Respiratory: normal respiratory effort, lungs clear to auscultation no respiratory distress Cardiovascular: RRR, no murmur, no edema Gastrointestinal (Abdomen): Inspection/Auscultation: abdomen normal to inspection; abdomen not distended Musculoskeletal: no cyanosis or clubbing, extremities motor strength 5/5 Skin: no rashes, warm and dry Neurologic: moves all extremities and awake Psychiatric: Orientation: alert, oriented to person and cooperative Results & Data Results & Data ([facility]) Vital Signs (Past 12 Hours) Vital Signs Temp Pulse Pulse Resp BP BP Pulse Ox 11/24/21 10:32 36.5 C 87 18 163/81 H 92 11/24/21 09:38 36.5 C 86 18 182/107 H 91 11/24/21 09:35 36.6 C 76 18 170/84 H 94 11/24/21 09:03 84 16 127/92 94 11/24/21 08:58 83 16 124/85 99 11/24/21 08:55 86 16 128/103 H 99 11/24/21 08:50 85 16 131/86 100 11/24/21 08:45 80 16 124/93 100 11/24/21 08:40 86 16 136/86 100 11/24/21 08:27 84 16 152/96 H 100 11/24/21 08:09 36.5 C 78 18 157/103 H 95 11/24/21 07:30 76 11/24/21 07:28 36.7 C 76 18 177/98 H 94 11/24/21 03:38 36.7 C 72 20 178/86 H 92 PG Care Time/CCT Total # of Minutes Spent Total Time Spent with Patient: Total time spent is greater than 50% in coordination of care (as documented) at patient's floor/unit and/or counseling patient: Coding Level of Care Code 93503 Subseq Hosp Care Lvl 2 Diagnoses Acute osteomyelitis of left foot M86.172 PAD (peripheral artery disease) I73.9 Mood disorder F39 COPD (chronic obstructive pulmonary disease) J44.9 Hyperlipidemia E78.5 BPH loc w urin obs/LUTS N40.1 Tremor R25.1
[2021-11-24] MEDS: lamoTRIgine 100 MG TAB PO SCH (14:44)
[2021-11-24 17:11] LABS: Partial Thromboplastin Ratio 2.3
[2021-11-24] MEDS: DOXEPIN HCL 50 MG CAPSULE PO SCH (20:46)
[2021-11-25] MEDS: HEPARIN SODIUM/DEXTROSE 25,000 UNITS/500 ML BAG IV SCH ×2 (00:08→23:09)
[2021-11-25 07:52] LABS: Hematocrit (blood only) 37.2 % (42-52); Hemoglobin 12.1 g/dL (14.0-18.0); Mean Corpuscular Hemoglobin 29.7 pg (25-34); Mean Corpuscular Hgb Conc 32.5 g/dL (32-36); Mean Corpuscular Volume 91.2 fL (80-100); Mean Platelet Volume 8.8 fL (7.4-10.4); Platelet Count 253 K/uL (130-400); RDW Coefficient of Variation 13.9 % (11.5-14.5); RDW Standard Deviation 45.9 fL (36.4-46.3); Red Blood Count 4.08 M/uL (4.7-6.1); White Blood Count 6.91 K/uL (4.8-10.8)
[2021-11-25 08:16] LABS: BUN Creatinine Ratio 13.2 (10-20); Creatinine Clr Calc Pharmacy 46.4 ml/min; Est GFR (African American) 57.4 ml/min; Est GFR (Non-African American) 49.5 ml/min; Partial Thromboplastin Ratio 2.1; Potassium 3.7 mmol/L (3.5-5.1)
[2021-11-25 08:27] LABS: Partial Thromboplastin Time 54.4 Seconds (21.0-31.0)
[2021-11-25] MEDS: CIPROFLOXACIN / D5W 400 MG/200 ML BAG IV SCH ×2 (08:33→22:24)
[2021-11-25] MEDS: GABAPENTIN 600 MG TAB PO SCH ×3 (08:34→22:25)
[2021-11-25] MEDS: NYSTATIN POWDER 15GM BTL EXT SCH (08:35)
[2021-11-25] MEDS: MULTIVITAMIN TAB PO SCH (08:35)
[2021-11-25] MEDS: UMECLIDINIUM BROMIDE 62.5MCG/BLISTER 7 PUFFS/INHALER INH SCH (08:35)
[2021-11-25] MEDS: PANTOprazole 40 MG TAB PO SCH (08:35)
[2021-11-25] MEDS: FINASTERIDE 5 MG TAB PO SCH (08:35)
[2021-11-25] MEDS: ROSUVASTATIN CALCIUM 20 MG TAB PO SCH (08:35)
[2021-11-25] MEDS: CLOPIDOGREL BISULFATE 75 MG TAB PO SCH (08:35)
[2021-11-25] MEDS: CYANOCOBALAMIN (B-12) 500 MCG TABLET PO SCH (08:35)
[2021-11-25] MEDS: TAMSULOSIN HCL 0.4 MG CAP PO SCH (08:35)
[2021-11-25] MEDS: DOCUSATE SODIUM/SENNA 50/8.6MG TAB PO SCH (10:33)
[2021-11-25] MEDS: POLYETHYLENE (MIRALAX) 17 GM PACK PO SCH (10:33)
[2021-11-25] MEDS: VANCOMYCIN HCL 1,500 MG in SODIUM CHLORIDE 0.9% 500 ML IV SCH (12:40)
--- NOTE | 2021-11-25 13:40 | Surgery Progress Note ---
Date of Service November 25, 2021 Assessment & Plan (1) PAD (peripheral artery disease): Plan: Discussed surgery options with his son and the patient separately. The patient and his family both agree to go ahead with a left lower extremity bypass. The patient does not want to risk having to have a major amputation of the left leg. Patient scheduled for tomorrow. Admission and Anticipated Discharge Date Admission Date: November 20, 2021 Subjective No new complaints Physical Exam Physical Exam: No changes in exam. Results & Data ([facility]) Vital Signs (Past 12 Hours) Vital Signs Temp Pulse Pulse Resp BP Pulse Ox 11/25/21 11:00 36.8 C 91 H 20 135/73 91 11/25/21 10:26 79 11/25/21 07:00 36.8 C 94 H 18 177/82 H 94 11/25/21 03:25 36.6 C 72 18 176/78 H 95
--- NOTE | 2021-11-25 14:43 | Hospitalist Progress Note ---
Date of Service November 25, 2021 Assessment & Plan (1) Acute osteomyelitis of left foot: Plan: Foot MRI on 11/19 with acute osteomyelitis; wound culture from [facility] wound clinic 11/13/2021 positive for Pseudomonas, Enterococcus. - Blood cultures from 11/20 with 10/14 with Micrococcus; likely contaminant. - Continue IV vancomycin & ciprofloxacin - Wound care nursing consult appreciated-will need ongoing wound care postoperatively -Now going for vascular bypass surgery of the left lower extremity on 11/26 to restore blood flow (2) PAD (peripheral artery disease): Plan: With ischemic foot. Patient is a chronic vasculopath with history of AAA, carotid artery stenosis, right internal iliac aneurysm, popliteal aneurysm; review of records show that he was started on Xarelto though it is unclear how adherent patient was. Status post angiogram with vascular surgery on 11/24 reveals left popliteal artery occlusion and gangrene of the toes - Continue heparin, Plavix, and rosuvastatin. - Pain control PRN -Plan now for bypass grafting on 11/26 with vascular surgery -Echocardiogram performed for murmur shows mild aortic stenosis, preserved EF, no regional wall motion abnormalities, moderate LVH, mild pulmonary hypertension -will need to remain in the hospital for postoperative care after surgery as per vascular -Continue heparin drip until vascular surgery says it can be discontinued and likely transitioned to DOAC (3) Mood disorder: Plan: Stable - Continue doxepin, Lamictal, melatonin (4) COPD (chronic obstructive pulmonary disease): Plan: No shortness of breath or wheezing, not requiring oxygen - Continue Incruse Ellipta (5) Hyperlipidemia: Plan: - Continue rosuvastatin (6) BPH loc w urin obs/LUTS: Plan: - Continue Flomax & finasteride (7) AAA (abdominal aortic aneurysm): Plan: Seen by vascular surgery here Aortic ultrasound ordered and shows AAA measuring up to 4.[address] in 2018 Continue Plavix, rosuvastatin Follow as an outpatient (8) Acid reflux disease: Plan: Continue PPI Add MiraLAX for constipation Plan: DVT prophylaxis-on heparin drip Disposition-continued stay on medical floor with telemetry Admission and Anticipated Discharge Date Admission Date: November 20, 2021 Subjective Patient reports some pain in the foot if he bumps it on something. Otherwise he is ready to have his bypass surgery tomorrow. Denies chest pains or shortness o f breath. He is constipated and requesting something to help him move his bowels. I discussed his care with the vascular surgery team. Review of Systems Review of Systems: All systems reviewed & are unremarkable except as noted in HPI & below Physical Exam Constitutional: WD/WN, vitals as above Eyes: + anicteric sclerae Neck: trachea midline, no thyromegaly Respiratory: normal respiratory effort, lungs clear to auscultation Cardiovascular: Rate/Rhythm: regular rate and regular rhythm Heart Sounds: + murmur (2/6 [place] at RUSB) Extremities: no edema Chest (Breasts): Chest: normal inspection of chest Gastrointestinal (Abdomen): normal bowel sounds, soft, nontender, no hepatosplenomegaly Musculoskeletal: Extremities: + extremities abnormal to inspection (left foot with dressing in place not removed), no cyanosis and no clubbing Neurologic: moves all extremities and awake; no focal motor deficits Psychiatric: A+Ox3, euthymic affect Lymphatic: no lymphedema Results & Data Results & Data ([facility]) Vital Signs (Past 12 Hours) Vital Signs Temp Pulse Pulse Resp BP Pulse Ox 11/25/21 11:00 36.8 C 91 H 20 135/73 91 11/25/21 10:26 79 11/25/21 07:00 36.8 C 94 H 18 177/82 H 94 11/25/21 03:25 36.6 C 72 18 176/78 H 95 Laboratory Results 11/25/21 11/25/21 11/25/21 Range/Units 07:17 07:17 07:17 WBC 6.91 (4.8-10.8) K/uL RBC 4.08 L (4.7-6.1) M/uL Hgb 12.1 L (14.0-18.0) g/dL Hct 37.2 L (42-52) % MCV 91.2 (80-100) fL MCH 29.7 (25-34) pg MCHC 32.5 (32-36) g/dL RDW Std Deviation 45.9 (36.4-46.3) fL RDW Coeff of [place]ino 13.9 (11.5-14.5) % Plt Count 253 (130-400) K/uL MPV 8.8 (7.4-10.4) fL APTT 54.4 H* (21.0-31.0) Seconds PTT Ratio 2.1 Sodium (136-145) mmol/L Potassium (3.5-5.1) mmol/L Chloride (98-107) mmol/L Carbon Dioxide (21-32) mmol/L Anion Gap (3-11) BUN (6-23) mg/dl Creatinine (0.6-1.4) mg/dl Est Cr Clr Drug Dosing ml/min Est GFR ( Amer) ml/min Est GFR (Non-Af Amer) ml/min BUN/Creatinine Ratio (10-20) Glucose (70-99(Fasting)) mg/dl Calcium (8.5-10.1) mg/dl Blood Type B Positive Blood Type Recheck Antibody Screen NEGATIVE Crossmatch See Detail 11/25/21 11/24/21 Range/Units 07:17 10:57 WBC (4.8-10.8) K/uL RBC (4.7-6.1) M/uL Hgb (14.0-18.0) g/dL Hct (42-52) % MCV (80-100) fL MCH (25-34) pg MCHC (32-36) g/dL RDW Std Deviation (36.4-46.3) fL RDW Coeff of [place] (11.5-14.5) % Plt Count (130-400) K/uL MPV (7.4-10.4) fL APTT (21.0-31.0) Seconds PTT Ratio Sodium 137 (136-145) mmol/L Potassium 3.7 D (3.5-5.1) mmol/L Chloride 104 (98-107) mmol/L Carbon Dioxide 26 (21-32) mmol/L Anion Gap 7 (3-11) BUN 17 (6-23) mg/dl Creatinine 1.29 (0.6-1.4) mg/dl Est Cr Clr Drug Dosing 46.4 ml/min Est GFR ( Amer) 57.4 ml/min Est GFR (Non-Af Amer) 49.5 ml/min BUN/Creatinine Ratio 13.2 (10-20) Glucose 92 (70-99(Fasting)) mg/dl Calcium 9.0 (8.5-10.1) mg/dl Blood Type Blood Type Recheck B Positive Antibody Screen Crossmatch PG Care Time/CCT Total # of Minutes Spent Total Time Spent with Patient: Total time spent is greater than 50% in coordination of care (as documented) at patient's floor/unit and/or counseling patient: Coding Level of Care Code 92767 Subseq Hosp Care Lvl 3 Diagnoses Acute osteomyelitis of left foot M86.172 PAD (peripheral artery disease) I73.9 Mood disorder F39 COPD (chronic obstructive pulmonary disease) J44.9 Hyperlipidemia E78.5 BPH loc w urin obs/LUTS N40.1 AAA (abdominal aortic aneurysm) I71.4 Acid reflux disease K21.9 Esophagitis presence: esophagitis presence not specified (1) Acid reflux disease Esophagitis presence: esophagitis presence not specified Qualified Code(s): K21.9 - Gastro-esophageal reflux disease without esophagitis
[2021-11-25] MEDS: lamoTRIgine 100 MG TAB PO SCH (15:20)
[2021-11-25] MEDS: DOXEPIN HCL 50 MG CAPSULE PO SCH (22:25)
[2021-11-26 06:00] LABS: Appearance Urine Clear (Clear); Bilirubin Urine Negative (Negative); Blood Urine Negative (Negative); Color Urine Yellow; Glucose Urine UA Negative (Negative); Ketones Urine Negative (Negative); Leukocyte Esterase Urine Negative (Negative); Nitrite Urine Negative (Negative); Protein Urine Negative (Negative); Specific Gravity Urine 1.007 (1.000-1.030); Urobilinogen Urine Negative (Negative); pH Urine 7.5 (4.5-7.5)
[2021-11-26] MEDS ORDERED: CLINDAMYCIN 600 MG/54 ML BAG IV SCH ×2 (06:00)
[2021-11-26 06:36] LABS: Basophils # (auto) 0.01 K/uL (0-0.2); Basophils % (auto) 0.1 %; Eosinophils # (auto) 0.08 K/uL (0-0.5); Hematocrit (blood only) 36.7 % (42-52); Hemoglobin 12.2 g/dL (14.0-18.0); Immature Granulocytes # (auto) 0.05 K/uL (0.00-0.02); Immature Granulocytes % (auto) 0.6 %; Mean Corpuscular Hemoglobin 29.9 pg (25-34); Mean Corpuscular Hgb Conc 33.2 g/dL (32-36); Monocytes # (auto) 0.91 K/uL (0.11-0.59); Monocytes % (auto) 10.9 %; Neutrophils % (auto) 75.4 %; Platelet Count 248 K/uL (130-400); RDW Coefficient of Variation 13.9 % (11.5-14.5); RDW Standard Deviation 45.3 fL (36.4-46.3); Red Blood Count 4.08 M/uL (4.7-6.1); White Blood Count 8.35 K/uL (4.8-10.8)
[2021-11-26 06:55] LABS: BUN Creatinine Ratio 15.8 (10-20); Calcium 9.3 mg/dl (8.5-10.1); Creatinine Clr Calc Pharmacy 41.7 ml/min; Est GFR (African American) 55.3 ml/min; Est GFR (Non-African American) 47.7 ml/min; Partial Thromboplastin Ratio 2.3; Potassium 3.8 mmol/L (3.5-5.1)
--- NOTE | 2021-11-26 07:58 | History & Physical Bridge Note ---
Date of Service November 26, 2021 History & Physical Bridge Note Patient for a left femoral to posterior tibial bypass for gangrene of toes and severe limb ischemia. I have discussed the risks options and benefits of the procedure with the patient and his son. The patient and his son understand the risks options and benefits and agrees to the procedure. The patient does not want to undergo a major amputation and wants to try to save his leg. I have examined the patient, reviewed the History & Physical and in the interval since the performance of the History & Physical I have noted the following changes of clinical significance: no changes noted
[2021-11-26] MEDS: CLOPIDOGREL BISULFATE 75 MG TAB PO SCH (08:08)
[2021-11-26] MEDS: CIPROFLOXACIN / D5W 400 MG/200 ML BAG IV SCH ×2 (08:08→20:57)
[2021-11-26] MEDS: ROSUVASTATIN CALCIUM 20 MG TAB PO SCH (08:09)
[2021-11-26] MEDS: GABAPENTIN 600 MG TAB PO SCH ×3 (08:09→20:24)
[2021-11-26] MEDS: NYSTATIN POWDER 15GM BTL EXT SCH (08:09)
[2021-11-26] MEDS: POLYETHYLENE (MIRALAX) 17 GM PACK PO SCH (08:09)
[2021-11-26] MEDS: PANTOprazole 40 MG TAB PO SCH (08:09)
[2021-11-26] MEDS: TAMSULOSIN HCL 0.4 MG CAP PO SCH (08:09)
[2021-11-26] MEDS: MULTIVITAMIN TAB PO SCH (08:09)
[2021-11-26] MEDS: CYANOCOBALAMIN (B-12) 500 MCG TABLET PO SCH (08:09)
[2021-11-26] MEDS: DOCUSATE SODIUM/SENNA 50/8.6MG TAB PO SCH (08:09)
[2021-11-26] MEDS: FINASTERIDE 5 MG TAB PO SCH (08:09)
[2021-11-26] MEDS: UMECLIDINIUM BROMIDE 62.5MCG/BLISTER 7 PUFFS/INHALER INH SCH (08:10)
[2021-11-26 08:40] LABS: Partial Thromboplastin Time 59.9 Seconds (21.0-31.0)
[2021-11-26] MEDS ORDERED: fentaNYL citrate 100 MCG/2 ML VIAL ONE ×2 (11:26→14:52)
[2021-11-26] MEDS ORDERED: LIDOCAINE 1% LOCAL 20 ML VIAL ONE (11:42)
[2021-11-26] MEDS ORDERED: ceFAZolin 330 MG/ML 1 GM VIAL ONE (11:42)
[2021-11-26] MEDS ORDERED: PAPAVERINE HCL INJ 30 MG/ML 2 ML VIAL ONE (11:42)
[2021-11-26] MEDS ORDERED: HEPARIN (PORCINE) 1000 UNIT/ML 10 ML (CATH LAB USE ONLY) ONE (11:42)
[2021-11-26] MEDS ORDERED: THROMBIN FOR SOLN 20000 UNIT KIT ONE (11:43)
[2021-11-26] MEDS ORDERED: GELATIN SPONGE SZ 100 ONE (11:43)
[2021-11-26] MEDS ORDERED: ePHEDrine sulfate 50 MG/ML AMP IV PRN (11:55)
[2021-11-26] MEDS ORDERED: ONDANSETRON INJ 2 MG/ML 2 ML VIAL IV PRN ×2 (11:55→17:50)
[2021-11-26] MEDS ORDERED: fentaNYL citrate 100 MCG/2 ML VIAL IV PRN (11:55)
[2021-11-26] MEDS ORDERED: HYDROmorphone INJ 2 MG/ML SYR/VIAL IV PRN (11:55)
[2021-11-26] MEDS ORDERED: ATROPINE SULFATE 0.1 MG/ML 10ML SYR IV PRN (11:55)
--- NOTE | 2021-11-26 11:55 | Anesthesiology Consultation ---
Date of Service November 26, 2021 Assessment & Plan ASA [id number] Proposed Anesthesia Anesthesia Type: General Risk / Benefits Reviewed With: PT / POA / Parent / Guardian, Accepts Plan and Informed Consent Obtained History Surgery Operation Date: 11/24/21 08:00 Proposed Procedures p Left Lower Extermity Arteriogram Possible Intervention - Jamel Gray MD Operation Date: 11/26/21 12:50 Proposed Procedures p Left Femoral Posterior Tibial Bypass - Jamel Grya MD Height/Weight Height: 5 ft 11 in Weight: 89.9 kg Allergies Allergy/AdvReac Type Severity Reaction Status Date / Time Penicillins Allergy Severe SHOCK Verified 11/20/21 13:54 aspirin Allergy Intermediate Swelling Verified 11/20/21 13:54 Medications Home Medications Medication Instructions Recorded Confirmed Last Taken multivitamin (Daily Multi-Vitamin) 1 tab PO DAILY #30 tab 03/09/19 11/20/21 11/20/21 ipratropium 20 mcg-albuterol 100 1 puffs INHALATION QID PRN gm 07/07/19 11/20/21 Unknown mcg/actuation mist for inhalation tiotropium bromide 18 mcg capsule 1 cap INHALATION DAILY puffs 07/07/19 11/20/21 11/20/21 with inhalation device tamsulosin 0.4 mg capsule 0.4 mg PO DAILY cap 09/21/19 11/20/21 11/20/21 clopidogrel 75 mg tablet 75 mg PO QAM 05/27/20 11/20/21 11/20/21 esomeprazole magnesium 20 mg 20 mg PO DAILY 05/27/20 11/20/21 10/06/21 capsule,delayed release (Nexium) bee pollen 550 mg capsule 550 mg PO DAILY 11/16/20 11/20/21 11/20/21 lidocaine 5 % topical patch 1 patch TOP DAILY PRN #15 ea 12/12/20 11/20/21 Unknown acetaminophen 650 mg 650 mg PO Q8H PRN 12/26/20 11/20/21 Unknown tablet,extended release gabapentin 600 mg tablet 600 mg PO TID 90 Days #270 tab 08/12/21 11/20/21 10/06/21 08:00 finasteride 5 mg tablet 5 mg PO DAILY 08/20/21 11/20/21 10/06/21 mecobalamin (vitamin B12) 1,000 1,000 mcg SUBLINGUAL DAILY 08/20/21 11/20/21 11/20/21 mcg disintegrating tablet,sublingual diclofenac sodium 1 % topical gel 4 g TOPICAL QID PRN 10/06/21 11/20/21 Unknown lamotrigine 300 mg tablet,extended 300 mg PO .DAILY AT 1500 10/06/21 11/20/21 10/05/21 release 24 hr melatonin 10 mg capsule 10 mg PO HS cap 10/29/21 11/20/21 11/19/21 ciprofloxacin HCl 250 mg tablet 250 mg PO BID 14 Days #28 tab 11/17/21 11/20/21 11/20/21 coenzyme Q10 100 mg capsule 100 mg PO DAILY 11/20/21 11/20/21 11/20/21 (CoQ-10) diphenhydramine 25 1 tab PO HS PRN 11/20/21 11/20/21 11/19/21 mg-acetaminophen 500 mg tablet doxepin 25 mg capsule 50 mg PO HS 11/20/21 11/20/21 11/19/21 nystatin 100,000 unit/gram topical 1 applic TOPICAL BID PRN 11/20/21 11/20/21 11/20/21 powder tramadol 50 mg tablet 50 mg PO Q6 PRN 11/20/21 11/20/21 Unknown Active Medications Generic Name Dose Route Start Last Admin Trade Name Vee PRN Reason Stop Dose Admin Clopidogrel Bisulfate 75 mg 11/21/21 09:00 11/26/21 08:08 Clopidogrel Bisulfate 75 Mg Tab PO 12/21/21 08:59 Not Given QAM CHIP Cyanocobalamin 1,000 mcg 11/21/21 09:00 11/26/21 08:09 Cyanocobalamin 500 Mcg Tablet (Vitamin B-12) PO 12/21/21 08:59 Not Given DAILY CHIP Doxepin HCl 50 mg 11/21/21 21:00 11/25/21 22:25 Doxepin Hcl 50 Mg Capsule PO 12/21/21 20:59 50 mg HS CHIP Administration Finasteride 5 mg 11/21/21 09:00 11/26/21 08:09 Finasteride 5 Mg Tab PO 12/21/21 08:59 Not Given DAILY CHIP Gabapentin 600 mg 11/21/21 09:00 11/26/21 08:09 Gabapentin 600 Mg Tab PO 12/21/21 08:59 Not Given TID CHIP Heparin Sodium/Dextrose 25,000 units in 500 mls @ 22 mls/hr 11/20/21 23:30 11/26/21 10:06 Heparin Sodium/Dextrose IV 12/20/21 23:29 1,100 units/hr .[id number] CHIP 22 mls/hr Titration Protocol 1,100 UNITS/HR Vancomycin HCl 1,500 mg/ 530 mls @ 200 mls/hr 11/21/21 12:00 11/25/21 15:21 Sodium Chloride IV 01/02/22 11:59 Infused Q24H CHIP Infusion Ciprofloxacin 400 mg in 200 mls @ 100 mls/hr 11/21/21 21:00 11/26/21 10:28 Cipro / D5w IV 01/02/22 20:59 Infused Q12H CHIP Infusion Protocol Iodixanol 20 ml 11/24/21 08:59 11/24/21 09:00 Visipaque IV 11/28/21 08:58 20 ml UD PRN Administration Interaction Checking Lamotrigine 300 mg 11/21/21 15:00 11/25/21 15:20 Lamotrigine 100 Mg Tab PO 12/21/21 14:59 300 mg DAILY@1500 CHIP Administration Morphine Sulfate 2 mg 11/21/21 01:25 11/21/21 20:29 Morphine Sulfate 2 Mg/Ml Carp IV 12/05/21 01:24 2 mg Q4H PRN Administration Pain Multivitamins 1 tab 11/21/21 09:00 11/26/21 08:09 Multivitamin Tab PO 12/21/21 08:59 Not Given DAILY CHIP Nystatin 1 appln 11/21/21 13:30 11/26/21 08:09 Nystatin Powder 15gm Btl EXT 12/21/21 13:29 1 appln DAILY CHIP Administration Pantoprazole Sodium 40 mg 11/21/21 09:00 11/26/21 08:09 Pantoprazole 40 Mg Tab PO 12/21/21 08:59 Not Given DAILY CHIP Polyethylene Glycol 17 gm 11/25/21 10:45 11/26/21 08:09 Polyethylene (Miralax) 17 Gm Pack PO 12/25/21 10:44 Not Given DAILY CHIP Rosuvastatin Calcium 20 mg 11/21/21 09:00 11/26/21 08:09 Rosuvastatin Calcium 20 Mg Tab PO 12/21/21 08:59 Not Given QAM CHIP Senna/Docusate Sodium 1 tab 11/25/21 10:45 11/26/21 08:09 Docusate Sodium/Senna 50/8.6mg Tab PO 12/25/21 10:44 Not Given QAM CHIP Tamsulosin HCl 0.4 mg 11/21/21 09:00 11/26/21 08:09 Tamsulosin Hcl 0.4 Mg Cap PO 12/21/21 08:59 Not Given DAILY CHIP Tramadol HCl 50 mg 11/21/21 01:25 11/21/21 23:54 Tramadol Hcl 50 Mg Tablet PO 12/21/21 01:24 50 mg Q6 PRN Administration Pain Umeclidinium [place] 1 puffs 11/21/21 09:00 11/26/21 08:10 Umeclidinium [place] 62.5mcg/Blister 7 Puffs/Inhaler INH 12/21/21 08:59 1 puffs DAILY CHIP Administration NPO Date Last Intake of Fluids: 11/25/21 Time Last Intake of Fluids: 23:55 Date Last Intake of Solids: 11/25/21 Time Last Intake of Solids: 17:00 Past Medical History Medical History Abscess of forearm, right Absent foot pulse Acid reflux disease Acute kidney injury Acute metabolic encephalopathy Aneurysm of abdominal aorta Aneurysm of right internal iliac artery Aspiration pneumonia Bilateral renal cysts Carotid artery narrowing Cellulitis of forearm, right Chronic obstructive pulmonary disease COPD (chronic obstructive pulmonary disease) will continue home meds. GERD (gastroesophageal reflux disease) Hyponatremia Incarcerated right inguinal hernia Metabolic encephalopathy Pneumonia Sensorineural hearing loss Sepsis Trigeminal neuralgia Exercise / Class Metabolic Activity II 4-5 Yardwork/Stairs/Walk up hill Past Family History Family History Mother Myocardial infarction Other Family history non-contributory Denies family history of Ovarian cancer Prostate cancer Breast cancer Colorectal cancer Past Surgical History Surgical History H/O fasciotomy H/O tooth extraction History of inguinal hernia repair Hx of shoulder surgery S/P debridement 11/25/20 Dr. 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 Ryder Roman Status post ear surgery Past Anesthesia History No Hx of Anesthesia Complications and No Family Hx of Anesthesia Complications History of PONV No Hx of PONV and No Hx of Motion Sickness Social History Smoking Status: Unknown if ever smoked tobacco type: cigarettes Do You Dip or Chew Tobacco: No Hx Alcohol Use: Yes Alcohol type: hard liquor alcohol intake frequency: holidays/special occasions only Hx Substance Use: No substance use type: does not use Review of Systems denies fever/cough/ colds/ chest pain/ SOB/ JACK denies JACK Physical Exam Vital Signs Last Vital Signs Temp 36.6 C 11/26/21 10:39 Pulse 77 11/26/21 10:39 Resp 18 11/26/21 10:39 BP 125/96 11/26/21 10:39 Pulse Ox 99 11/26/21 10:39 ENMT Mouth: + dentures; no TMJ abnormality and no dentition abnormality Thyromental Distance: > or= 3.5 Finger Breadths Mallampati Class: II Neck neck extension not limited Respiratory normal respiratory effort; no respiratory distress Auscultation: lungs clear to auscultation bilaterally Cardiovascular Rate/Rhythm: regular rate and regular rhythm Neurologic moves all extremities Psychiatric Orientation: alert and oriented x 3 Testing Laboratory Results 11/26/21 05:53 11/26/21 05:53 PT 10.1 Seconds (9.0-12.0) 11/20/21 15:40 INR 1.0 (0.9-1.1) 11/20/21 15:40 APTT 59.9 Seconds (21.0-31.0) H* 11/26/21 05:53 Urine Color Yellow 11/26/21 05:45 Urine Appearance Clear (Clear) 11/26/21 05:45 Urine pH 7.5 (4.5-7.5) 11/26/21 05:45 Ur Specific [place] 1.007 (1.000-1.030) 11/26/21 05:45 Urine Protein Negative (Negative) 11/26/21 05:45 Urine Glucose (UA) Negative (Negative) 11/26/21 05:45 Urine Ketones Negative (Negative) 11/26/21 05:45 Urine Nitrite Negative (Negative) 11/26/21 05:45 Ur Leukocyte Esterase Negative (Negative) 11/26/21 05:45 Blood Type B Positive 11/25/21 07:17 Antibody Screen NEGATIVE 11/25/21 07:17 11/20/21 19:32 Aerobic Blood Culture - Final Blood No growth in Aerobic bottle after 5 days. Anaerobic Blood Culture - Final 11/20/21 15:40 Aerobic Blood Culture - Preliminary Blood Micrococcus species Anaerobic Blood Culture - Final No growth in Anaerobic bottle after 5 days.
[2021-11-26 12:23] LABS: Partial Thromboplastin Ratio 2.1
[2021-11-26 12:54] LABS: Partial Thromboplastin Time 56.4 Seconds (21.0-31.0)
[2021-11-26] MEDS ORDERED: ePHEDrine sulfate 50 MG/ML SYR ONE (12:59)
[2021-11-26] MEDS ORDERED: LIDOCAINE 2% 2 ML VIAL/AMP(20MG/ML) INFIL ONE (12:59)
[2021-11-26] MEDS ORDERED: PROPOFOL IV EMULSION 10 MG/ML 20 ML VIAL IV ONE (12:59)
[2021-11-26] MEDS ORDERED: PHENYLEPHRINE HCL 10 MG/ML VIAL ONE ×2 (12:59→14:25)
[2021-11-26] MEDS ORDERED: VASOPRESSIN 20 UNIT/ML VIAL ONE (12:59)
[2021-11-26] MEDS ORDERED: ROCURONIUM BROMIDE 10 MG/ML 5 ML VIAL IV ONE ×4 (13:15→14:52)
[2021-11-26] MEDS ORDERED: ONDANSETRON INJ 2 MG/ML 2 ML VIAL ONE (13:23)
[2021-11-26] MEDS ORDERED: DEXAMETHASONE SOD INJ 4 MG/ML VIAL ONE (13:23)
[2021-11-26] MEDS ORDERED: GLYCOPYRROLATE 0.2 MG/ML VIAL ONE (15:31)
[2021-11-26] MEDS ORDERED: NEOSTIGMINE METHYLSULFATE 1 MG/ML 10ML VIAL ONE (15:31)
--- NOTE | 2021-11-26 15:55 | Post Operative Brief Note ---
Immediate Post Op Note v1 Date of Surgery November 26, 2021 Pre & Post Diagnosis Operation Date: 11/24/21 08:00 Pre-Op Diagnosis: left popliteal artery occlusion, gangrene of toes Post-Op Diagnosis: left popliteal artery occlusion, gangrene of toes Operation Date: 11/26/21 12:50 Pre-Op Diagnosis: gangrene of left toes and severe limb ischemia Post-Op Diagnosis: gangrene of left toes and severe limb ischemia I identified the patient and participated in the time-out.: Yes Procedure Operation Date: 11/24/21 08:00 Actual Procedures p Left Lower Extermity Arteriogram, mechanical closure of right femoral artery, moderate sedation [id number] - Jamel Gray MD Operation Date: 11/26/21 12:50 Actual Procedures p Left Femoral Posterior Tibial reverse saphenous vein Bypass(Left) - Jamel Gray MD Surgeon Jamel Gray MD [employer],PAC Estimated Blood Loss 250 Findings Consistent with Post-Op Diagnosis Drains Han Catheter Anesthesia Type General Complications none Disposition Accompanied Patient To Recovery: No Disposition: Recovery Room
[2021-11-26] MEDS: lamoTRIgine 100 MG TAB PO SCH (16:11)
[2021-11-26 16:37] LABS: Basophils # (auto) 0.01 K/uL (0-0.2); Basophils % (auto) 0.1 %; Eosinophils # (auto) 0.03 K/uL (0-0.5); Eosinophils % (auto) 0.2 %; Hematocrit (blood only) 33.4 % (42-52); Immature Granulocytes # (auto) 0.08 K/uL (0.00-0.02); Immature Granulocytes % (auto) 0.6 %; Lymphocytes # (auto) 0.55 K/uL (1.2-3.4); Lymphocytes % (auto) 4.4 %; Mean Corpuscular Hemoglobin 29.8 pg (25-34); Mean Corpuscular Volume 90.5 fL (80-100); Mean Platelet Volume 8.5 fL (7.4-10.4); Monocytes # (auto) 0.31 K/uL (0.11-0.59); Monocytes % (auto) 2.5 %; Neutrophils # (auto) 11.51 K/uL (1.4-6.5); Neutrophils % (auto) 92.2 %; Platelet Count 199 K/uL (130-400); RDW Coefficient of Variation 13.9 % (11.5-14.5); RDW Standard Deviation 45.8 fL (36.4-46.3); Red Blood Count 3.69 M/uL (4.7-6.1); White Blood Count 12.49 K/uL (4.8-10.8)
[2021-11-26 16:42] LABS: Mean Corpuscular Hgb Conc 32.9 g/dL (32-36)
--- NOTE | 2021-11-26 16:54 | Anesthesiology Progress Note ---
Date of Service November 26, 2021 Anesthesia Post Procedure Vital Signs Vital Signs: Temp Pulse Pulse Pulse Pulse Resp BP 11/26/21 16:08 36.7 C 82 14 11/26/21 12:32 85 11/26/21 10:39 36.6 C 77 18 125/96 11/26/21 07:46 36.4 C L 65 18 134/80 11/26/21 04:57 36.8 C 78 20 155/88 H 11/26/21 02:09 78 11/25/21 23:00 36.7 C 72 18 169/95 H 11/25/21 19:00 37 C 78 18 167/90 H BP Pulse Ox 11/26/21 16:08 74/49 L 97 11/26/21 12:32 11/26/21 10:39 99 11/26/21 07:46 94 11/26/21 04:57 94 11/26/21 02:09 11/25/21 23:00 97 11/25/21 19:00 95 Pain Intensity Left Foot: Pain Intensity: 2 Transfer of Care Handoff Completed per policy Notes Mental Status: alert / awake / arousable and participated in evaluation Patient Amnestic to Procedure: Yes Nausea / Vomiting: adequately controlled Pain: adequately controlled Airway Patency, RR, SpO2: stable & adequate BP & HR: stable & adequate Hydration State: stable & adequate Anesthetic Complications: no major complications apparent and Pt Satisfied with anesthetic care
[2021-11-26 17:00] LABS: BUN Creatinine Ratio 17.9 (10-20); Calcium 8.2 mg/dl (8.5-10.1); Creatinine Clr Calc Pharmacy 45.1 ml/min; Est GFR (African American) 60.8 ml/min; Est GFR (Non-African American) 52.5 ml/min; Potassium 3.9 mmol/L (3.5-5.1)
--- NOTE | 2021-11-26 17:39 | Hospitalist Progress Note ---
Date of Service November 26, 2021 Assessment & Plan (1) Acute osteomyelitis of left foot: Plan: Foot MRI on 11/19 with acute osteomyelitis; wound culture from [facility] wound clinic 11/13/2021 positive for Pseudomonas, Enterococcus. - Blood cultures from 11/20 with / with Micrococcus; likely contaminant. - Continue IV vancomycin & ciprofloxacin - Wound care nursing consult placed. WBC and vitals stable today. (2) PAD (peripheral artery disease): Plan: With ischemic foot. Patient is a chronic vasculopath with history of AAA, carotid artery stenosis, right internal iliac aneurysm, popliteal aneurysm; review of records show that he was started on Xarelto though it is unclear how adherent patient was. - Continue heparin, Plavix, and rosuvastatin. - Pain control PRN - Vascular surgery following: S/p left Femoral Posterior Tibial reverse saphenous vein Bypass with Dr. Gray on 11/05. Transferred to ICU after case. -> Continue heparin gtt until transition to DOAC per vascular. (3) Mood disorder: Plan: Pleasant today. No concerns. - Continue doxepin (4) COPD (chronic obstructive pulmonary disease): Plan: No shortness of breath or wheezing today. - Continue Incruse Ellipta (5) Hyperlipidemia: Plan: - Continue rosuvastatin (6) BPH loc w urin obs/LUTS: Plan: - Continue Flomax & finasteride (7) Tremor: Plan: - Continue Lamictal Admission and Anticipated Discharge Date Admission Date: November 20, 2021 Subjective Seen after surgery just arriving to ICU from PACU. The patient is confused and agitated and keep saying that we will "do what [we] want" and not what he wants. With reassurance, he calms down somewhat, but is still not very re-directable other than some simple yes/no questions. Denies pain in the leg. Physical Exam Constitutional: WD/WN, vitals as above Eyes: EOM intact bilaterally; no conjunctival abnormality ENMT: external ear and nose normal, oropharynx normal Neck: trachea midline, no thyromegaly normal visual inspection Respiratory: normal respiratory effort, lungs clear to auscultation no respiratory distress Cardiovascular: RRR, no murmur, no edema Gastrointestinal (Abdomen): Inspection/Auscultation: abdomen normal to inspection; abdomen not distended Musculoskeletal: no cyanosis or clubbing, extremities motor strength 5/5 Skin: no rashes, warm and dry Long line of dressing up and down left leg. Neurologic: moves all extremities and awake Psychiatric: Orientation: alert, oriented to person and cooperative Results & Data Results & Data ([facility]) Vital Signs (Past 12 Hours) Vital Signs Temp Pulse Pulse Pulse Resp BP BP 11/26/21 16:53 83 11 L 104/49 L 11/26/21 16:35 80 13 88/54 L 11/26/21 16:25 82 15 113/56 L 11/26/21 16:15 73 12 113/94 11/26/21 16:08 36.7 C 82 14 11/26/21 12:32 85 11/26/21 10:39 36.6 C 77 18 125/96 11/26/21 07:46 36.4 C L 65 18 134/80 BP Pulse Ox 11/26/21 16:53 84/66 L 93 11/26/21 16:35 71/54 L 97 11/26/21 16:25 98/64 L 92 11/26/21 16:15 90/65 L 98 11/26/21 16:08 74/49 L 97 11/26/21 12:32 11/26/21 10:39 99 11/26/21 07:46 94 PG Care Time/CCT Total # of Minutes Spent Total Time Spent with Patient: Total time spent is greater than 50% in coordination of care (as documented) at patient's floor/unit and/or counseling patient: Coding Level of Care Code 92528 Subseq Hosp Care Lvl 3 Diagnoses Acute osteomyelitis of left foot M86.172 PAD (peripheral artery disease) I73.9 Mood disorder F39 COPD (chronic obstructive pulmonary disease) J44.9 Hyperlipidemia E78.5 BPH loc w urin obs/LUTS N40.1 Tremor R25.1
[2021-11-26] MEDS ORDERED: MoRPHine SULFATE 4 MG/ML 1 ML CARP\\VIAL IV PRN (17:50)
[2021-11-26] MEDS: VANCOMYCIN HCL 1,500 MG in SODIUM CHLORIDE 0.9% 500 ML IV SCH (17:51)
[2021-11-26] MEDS ORDERED: MoRPHine SULFATE 4 MG/ML 1 ML CARP\\VIAL ONE (17:54)
[2021-11-26] MEDS ORDERED: ENOXAPARIN INJ 30 MG/0.3 ML SYR SQ SCH (19:30)
[2021-11-26] MEDS: LACTATED RINGER'S 1,000 ML IV SCH (19:50)
--- NOTE | 2021-11-26 19:57 | Critical Care Consultation ---
Date of Consultation November 26, 2021 Assessment & Plan (1) Acute osteomyelitis of toe of left foot: Impression: 86-year-old male with extensive vasculopathic history presents to the ICU postop following a left femoral to posterior tibial bypass for gangrene of toes and severe limb ischemia. Neuro - [facility] ICU: Positive Mood disordercontinue Sinequan Pain controlmorphine as needed, tramadol Cardiac - PAD/left popliteal artery occlusionleft femoral posterior tibial reverse saphenous vein bypass -Left foot warm to touch and dopplerable pedal pulse -Admitted to ICU for monitoring postop -Currently on Crestor, Plavix -Management per surgical team Respiratory - COPDlungs currently clear to auscultation and maintain oxygen saturation on 2 L nasal cannula without respiratory distress -Continue Umeclidinium bromide, nebs as needed -Wean oxygen as tolerated and monitor pulse ox continuous GI - GERDPPI RENAL/LYTES - Creatinine currently stable at baseline of 1.2. Monitor routine BMPs replete electrolytes as indicated Continue LR at 125 - Foleystrict I's and O's BPHcontinue Flomax, finasteride ENDO - No history of diabetes or thyroid disease ICU hyperglycemic protocol HEME - H&H stable, no signs of bleeding. Monitor routine CBC and transfuse if indicat ed ID - Acute osteomyelitis of left lower extremityblood cultures 2/3+ for Pseudomonas her [place] and Enterococcus -Blood cultures 2/10 with 1+ aerobic micrococcus species, possible contamination -Continue clindamycin, Cipro, vancomycin LINES/IV ACCESS - Peripheral IVs, A-line DVT PROPHYLAXIS - SCDs, anticoagulation deferred to vascular surgery following procedure Thank you for allowing us to participate in the care of this patient. Please refer to my attending physician's documentation for any further recommendations. (2) COPD (chronic obstructive pulmonary disease): (3) Acid reflux disease: (4) AAA (abdominal aortic aneurysm): (5) PAD (peripheral artery disease): (6) Mood disorder: (7) Ischemia of left lower extremity: History of Present Illness Attending Physician: Benjamin Moody MD History of Present Illness Patient is a 86-year-old male with past medical history significant for PAD, COPD, HLD, BPH, mood disorder who was hospitalized with ischemic foot and osteomyelitis of the left foot. Wound cultures from 2/3 grew Pseudomonas and Ent erococcus and is undergoing treatment with vancomycin and ciprofloxacin. He is a chronic vasculopath and has history of AAA, SPENCER, iliac aneurysm, popliteal aneurysm for which we was on Xarelto outpatient. Patient underwent scheduled left femoral posterior tibial reverse saphenous vein bypass with Dr. Gray today for which she now presents to the ICU postop. Patient now presents to the ICU and is hemodynamically stable. Left lower extremity surgical incision extends from the upper part of the inner thigh to the lower calf and is well approximated without significant swelling. Patient is somewhat confused but is aware that he is currently in the hospital and being treated for an infection in his foot. He denies any pain. He denies headache, dizziness, sore throat or congestion, cough, chest pain, shortness of breath, palpitations, abdominal pain. He does have a dopplerable pedal pulse in the left lower extremity and it is warm to touch. Left middle toes appear gangrenous. Patient to remain in ICU for close monitoring overnight postop. Allergies Allergy/AdvReac Type Severity Reaction Status Date / Time Penicillins Allergy Severe SHOCK Verified 11/20/21 13:54 aspirin Allergy Intermediate Swelling Verified 11/20/21 13:54 Home Medications Medication Instructions Recorded Confirmed Type multivitamin (Daily Multi-Vitamin) 1 tab PO DAILY #30 tab 03/09/19 11/20/21 Rx ipratropium 20 mcg-albuterol 100 1 puffs INHALATION QID PRN gm 07/07/19 11/20/21 History mcg/actuation mist for inhalation tiotropium bromide 18 mcg capsule 1 cap INHALATION DAILY puffs 07/07/19 11/20/21 History with inhalation device tamsulosin 0.4 mg capsule 0.4 mg PO DAILY cap 09/21/19 11/20/21 History clopidogrel 75 mg tablet 75 mg PO QAM 05/27/20 11/20/21 History esomeprazole magnesium 20 mg 20 mg PO DAILY 05/27/20 11/20/21 History capsule,delayed release (Nexium) bee pollen 550 mg capsule 550 mg PO DAILY 11/16/20 11/20/21 History lidocaine 5 % topical patch 1 patch TOP DAILY PRN #15 ea 12/12/20 11/20/21 Rx acetaminophen 650 mg 650 mg PO Q8H PRN 12/26/20 11/20/21 History tablet,extended release gabapentin 600 mg tablet 600 mg PO TID 90 Days #270 tab 08/12/21 11/20/21 Rx finasteride 5 mg tablet 5 mg PO DAILY 08/20/21 11/20/21 History mecobalamin (vitamin B12) 1,000 1,000 mcg SUBLINGUAL DAILY 08/20/21 11/20/21 History mcg disintegrating tablet,sublingual diclofenac sodium 1 % topical gel 4 g TOPICAL QID PRN 10/06/21 11/20/21 History lamotrigine 300 mg tablet,extended 300 mg PO .DAILY AT 1500 10/06/21 11/20/21 History release 24 hr melatonin 10 mg capsule 10 mg PO HS cap 10/29/21 11/20/21 History ciprofloxacin HCl 250 mg tablet 250 mg PO BID 14 Days #28 tab 11/17/21 11/20/21 Rx coenzyme Q10 100 mg capsule 100 mg PO DAILY 11/20/21 11/20/21 History (CoQ-10) diphenhydramine 25 1 tab PO HS PRN 11/20/21 11/20/21 History mg-acetaminophen 500 mg tablet doxepin 25 mg capsule 50 mg PO HS 11/20/21 11/20/21 History nystatin 100,000 unit/gram topical 1 applic TOPICAL BID PRN 11/20/21 11/20/21 History powder tramadol 50 mg tablet 50 mg PO Q6 PRN 11/20/21 11/20/21 History Patient History Medical History (Updated 11/26/21 @ 20:20 by KOSTAS Escoto) Abscess of forearm, right Absent foot pulse Acid reflux disease Acute kidney injury Acute metabolic encephalopathy Aneurysm of abdominal aorta Aneurysm of right internal iliac artery Aspiration pneumonia Bilateral renal cysts Carotid artery narrowing Cellulitis of forearm, right Chronic obstructive pulmonary disease COPD (chronic obstructive pulmonary disease) will continue home meds. GERD (gastroesophageal reflux disease) Hyponatremia Incarcerated right inguinal hernia Metabolic encephalopathy Pneumonia Sensorineural hearing loss Sepsis Trigeminal neuralgia Surgical History H/O fasciotomy H/O tooth extraction History of inguinal hernia repair Hx of shoulder surgery S/P debridement 11/25/20 Dr. Delvis Gale- Right Forearm Debridement of Necrotic Abscess(Right) S/P vascular surgery 06/26/19 right superficial femoral artery cutdown, RLE angiogram, right popliteal artery aneurysm excision with viabahn stent graft- Dr. 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 Beliefs That Will Affect Care: None marital status: Current Living Situation: Spouse current occupational status: retired How many Children do You have: 3 Feels Safe at Home: Yes Safety Concerns Comment: frequent falls Childhood Exposure to Second-Hand Smoke: Yes caffeine: Yes Dental Care, Regularly: No Physical Activity Frequency: 1-2 Times per Week Seatbelt Use: always Sunscreen Use: No Do you think of yourself as: straight/heterosexual Gender Identity: Male Assistive Devices: Glasses and Walker Review of Systems Review of Systems: All systems reviewed & are unremarkable except as noted in HPI & below Physical Exam Constitutional: + altered mental status and + behavioral limitations; no acute distress and not combative Eyes: PERRL, conjunctivae normal, anicteric sclerae ENMT: external ear and nose normal, oropharynx normal Neck: trachea midline, no thyromegaly Respiratory: normal respiratory effort, lungs clear to auscultation Cardiovascular: RRR, no murmur, no edema Gastrointestinal (Abdomen): normal bowel sounds, soft, nontender, no hepatosplenomegaly Musculoskeletal: no cyanosis or clubbing, extremities motor strength 5/5 Skin: Surgical incision to left lower extremity well approximated Neurologic: PERRL, EOMI, accommodation nl, no face palsy, no dysarthria Psychiatric: Orientation: oriented to person and oriented to place; + not oriented to time Confused Results & Data Results & Data ([facility] [place]) Vital Signs (Past 12 Hours) Vital Signs Temp Pulse Pulse Pulse Resp BP BP 11/26/21 18:20 88 16 11/26/21 18:10 86 12 11/26/21 18:00 88 18 11/26/21 17:30 36.4 C L 90 24 11/26/21 17:17 86 16 85/64 L 11/26/21 17:05 36.2 C L 84 15 11/26/21 16:55 84 13 11/26/21 16:45 78 11 L 11/26/21 16:35 80 13 11/26/21 16:25 82 15 11/26/21 16:15 73 12 11/26/21 16:08 36.7 C 82 14 11/26/21 12:32 85 11/26/21 10:39 36.6 C 77 18 125/96 11/26/21 07:46 36.4 C L 65 18 134/80 BP BP Pulse Ox 11/26/21 18:20 91 11/26/21 18:10 11/26/21 18:00 90 11/26/21 17:30 11/26/21 17:17 90 11/26/21 17:05 100/46 L 83/61 L 94 11/26/21 16:55 113/51 L 84/66 L 94 11/26/21 16:45 97/46 L 75/61 L 89 L 11/26/21 16:35 88/54 L 71/54 L 97 11/26/21 16:25 113/56 L 98/64 L 92 11/26/21 16:15 113/94 90/65 L 98 11/26/21 16:08 74/49 L 97 11/26/21 12:32 11/26/21 10:39 99 11/26/21 07:46 94 Coding Level of Care Code 64815 Inpt Consult Level 3 Diagnoses COPD (chronic obstructive pulmonary disease) J44.9 Acid reflux disease K21.9 Esophagitis presence: esophagitis presence not specified AAA (abdominal aortic aneurysm) I71.4 Acute osteomyelitis of toe of left foot M86.172 PAD (peripheral artery disease) I73.9 Mood disorder F39 Ischemia of left lower extremity I99.8 (1) Acid reflux disease Esophagitis presence: esophagitis presence not specified Qualified Code(s): K21.9 - Gastro-esophageal reflux disease without esophagitis
[2021-11-26] MEDS: DOXEPIN HCL 50 MG CAPSULE PO SCH (20:24)
[2021-11-26] MEDS ORDERED: KETOROLAC LS 0.4% OP SOLN 5 ML BTL OP ONE (20:26)
[2021-11-26] MEDS ORDERED: ERYTHROMYCIN OP OINT 5 MG/GM 3.5 GM TUBE OP ONE (21:02)
[2021-11-26] MEDS: ARTIFICIAL TEARS OP OINT 3.5 GM TUBE OP PRN (21:13)
[2021-11-27] MEDS: LACTATED RINGER'S 1,000 ML IV SCH ×2 (03:51→10:32)
[2021-11-27 05:16] LABS: Hematocrit (blood only) 31.9 % (42-52); Hemoglobin 10.6 g/dL (14.0-18.0); Mean Corpuscular Hemoglobin 29.9 pg (25-34); Mean Corpuscular Hgb Conc 33.2 g/dL (32-36); Mean Corpuscular Volume 90.1 fL (80-100); Mean Platelet Volume 8.9 fL (7.4-10.4); Platelet Count 209 K/uL (130-400); RDW Coefficient of Variation 13.9 % (11.5-14.5); RDW Standard Deviation 46.1 fL (36.4-46.3); Red Blood Count 3.54 M/uL (4.7-6.1)
[2021-11-27 05:31] LABS: Partial Thromboplastin Ratio 1.3; Partial Thromboplastin Time 33.6 Seconds (21.0-31.0)
[2021-11-27 05:39] LABS: Acanthocytes 1+; Immature Granulocytes # (auto) 0.05 K/uL (0.00-0.02); Immature Granulocytes % (auto) 0.4 %; Lymphocytes # (auto) 1.44 K/uL (1.2-3.4); Lymphocytes % (auto) 12.6 %; Monocytes # (auto) 0.55 K/uL (0.11-0.59); Monocytes % (auto) 4.8 %; Neutrophils # (auto) 9.36 K/uL (1.4-6.5); Neutrophils % (auto) 82.2 %
[2021-11-27 05:55] LABS: BUN Creatinine Ratio 19.1 (10-20); Calcium 8.4 mg/dl (8.5-10.1); Creatinine Clr Calc Pharmacy 48.2 ml/min; Est GFR (African American) 65.9 ml/min; Est GFR (Non-African American) 56.9 ml/min; Potassium 4.3 mmol/L (3.5-5.1)
[2021-11-27] MEDS ORDERED: LACTATED RINGER'S 1,000 ML IV ONE (08:21)
[2021-11-27] MEDS: CIPROFLOXACIN / D5W 400 MG/200 ML BAG IV SCH ×2 (08:21→20:13)
--- NOTE | 2021-11-27 08:21 | Critical Care Progress Note ---
Date of Service November 27, 2021 Assessment & Plan (1) Ischemia of left lower extremity: (2) COPD (chronic obstructive pulmonary disease): (3) Acute osteomyelitis of left foot: (4) PAD (peripheral artery disease): Plan: Impression: 86-year-old male with extensive vasculopathic history presents to the ICU postop following a left femoral to posterior tibial bypass for gangrene of toes and severe limb ischemia 11/26. Neuro -ICU delirium. Continue to optimize sleep-wake cycles and avoid benzodiazepines or other medications which potentially could contribute to delirium. Frequent reorientation. Currently on baseline Lamictal. Continue Neurontin as well as well as doxepin at night. Analgesia per vascular surgery. Exam nonfocal and no indication for repeat imaging or additional testing. Cardiac -BP slightly soft today. Will provide 1 L LR fluid bolus as well as 50 g of 25% albumin. Replace calcium and follow. If fails to respond, Geovani-Synephrine may be required. echocardiogram from 11/21 showed an EF of greater than 70% without regional wall motion abnormalities. Concentric LVH was noted with mild . Respiratory -COPD. No evidence of bronchospasm. Continue Incruse and nebs as needed. Wean oxygen as tolerated GI -tolerating diet. Continue PPI. RENAL/LYTES - Creatinine currently stable. Continue to follow. Electrolyte replacement as needed - Foleystrict I's and O's BPHcontinue Flomax, finasteride ENDO - No history of diabetes or thyroid disease ICU hyperglycemic protocol HEME - H&H stable, no signs of bleeding. Monitor routine CBC and transfuse if indicated ID - Continue clindamycin, Cipro, vancomycin. Will likely need prolonged course of antibiotics. LINES/IV ACCESS - Peripheral IVs, A-line DVT PROPHYLAXIS - SCDs, anticoagulation deferred to vascular surgery following procedure Patient is critically ill at this point time with significant probability of clinical deterioration. A total of 40 minutes of critical care time was spent in evaluation management and stabilization of this patient exclusive of any other procedures or clinical time. Thank you for allowing us to participate in the care of this patient.Discussed on multidisciplinary rounds and with bedside critical care nurse. Disposition per vascular surgery Admission and Anticipated Discharge Date Admission Date: November 20, 2021 Subjective Patient seen and examined. EMR reviewed. Discussed with critical care ALEJANDRINA. Overnight the patient had some issues with sundowning and delirium. He tolerated breakfast this morning. He denies any pain. No difficulty breathing. He is on room air. Review of Systems Review of Systems: Unobtainable due to cognitive status Physical Exam Constitutional: + altered mental status and + behavioral limitations; no acute distress and not combative Eyes: PERRL, conjunctivae normal, anicteric sclerae ENMT: external ear and nose normal, oropharynx normal Neck: trachea midline, no thyromegaly Respiratory: normal respiratory effort, lungs clear to auscultation Cardiovascular: RRR, no murmur, no edema Gastrointestinal (Abdomen): normal bowel sounds, soft, nontender, no hepatosplenomegaly Musculoskeletal: no cyanosis or clubbing, extremities motor strength 5/5 Skin: Surgical incision to left lower extremity well approximated. Necrotic toe on the left Neurologic: PERRL, EOMI, accommodation nl, no face palsy, no dysarthria Psychiatric: Orientation: oriented to person and oriented to place; + not oriented to time Confused Results & Data Results & Data ([facility]) Vital Signs (Past 12 Hours) Vital Signs Temp Pulse Resp BP Pulse Ox 11/27/21 06:00 80 16 95/72 L 11/27/21 05:00 79 13 102/73 96 11/27/21 04:01 78 12 103/73 95 11/27/21 04:00 36.8 C 79 11 L 94 11/27/21 03:00 77 17 92 11/27/21 02:00 82 12 95/67 L 96 11/27/21 01:01 85 18 94 11/27/21 01:00 84 19 93 11/27/21 00:53 89 18 93/70 L 96 11/27/21 00:05 88 22 89/65 L 95 11/27/21 00:04 88 18 94 11/27/21 00:02 89 15 96 11/27/21 00:01 88 11 L 92 11/27/21 00:00 36.7 C 86 13 91 11/26/21 23:20 94 H 11/26/21 23:00 92 H 14 112/68 94 11/26/21 22:00 93 H 10 L 103/72 96 11/26/21 21:00 94 H 17 116/90 94 Critical Care Results & Data Vital Signs (Past 12 Hours) Vital Signs Temp Pulse Resp BP Pulse Ox 11/27/21 06:00 80 16 95/72 L 02/17/22 05:00 79 13 102/73 96 11/27/21 04:01 78 12 103/73 95 11/27/21 04:00 36.8 C 79 11 L 94 11/27/21 03:00 77 17 92 11/27/21 02:00 82 12 95/67 L 96 11/27/21 01:01 85 18 94 11/27/21 01:00 84 19 93 11/27/21 00:53 89 18 93/70 L 96 11/27/21 00:05 88 22 89/65 L 95 11/27/21 00:04 88 18 94 11/27/21 00:02 89 15 96 11/27/21 00:01 88 11 L 92 11/27/21 00:00 36.7 C 86 13 91 11/26/21 23:20 94 H 11/26/21 23:00 92 H 14 112/68 94 11/26/21 22:00 93 H 10 L 103/72 96 11/26/21 21:00 94 H 17 116/90 94 Lab & Micro Results (Past 24 Hours) RBC 3.54 M/uL (4.7-6.1) L 11/27/21 WBC 11.40 K/uL (4.8-10.8) H 11/27/21 Hgb 10.6 g/dL (14.0-18.0) L 11/27/21 Hct 31.9 % (42-52) L 11/27/21 MCV 90.1 fL (80-100) 11/27/21 MCH 29.9 pg (25-34) 11/27/21 MCHC 33.2 g/dL (32-36) 11/27/21 RDW Standard Deviation 46.1 fL (36.4-46.3) 11/27/21 RDW Coefficient of Variation 13.9 % (11.5-14.5) 11/27/21 Plt Count 209 K/uL (130-400) 11/27/21 MPV 8.9 fL (7.4-10.4) 11/27/21 Neutrophils (%) (Auto) 82.2 % 11/27/21 Lymphocytes (%) (Auto) 12.6 % 11/27/21 Monocytes # (Auto) 0.55 K/uL (0.11-0.59) 11/27/21 Eosinophils # (Auto) 0.00 K/uL (0-0.5) 11/27/21 Immature Granulocyte % (Auto) 0.4 % 11/27/21 Neutrophils # (Auto) 9.36 K/uL (1.4-6.5) H 11/27/21 Lymphocytes # (Auto) 1.44 K/uL (1.2-3.4) 11/27/21 Monocytes # (Auto) 0.55 K/uL (0.11-0.59) 11/27/21 Eosinophils # (Auto) 0.00 K/uL (0-0.5) 11/27/21 Basophils # (Auto) 0.00 K/uL (0-0.2) 11/27/21 Immature Granulocyte # (Auto) 0.05 K/uL (0.00-0.02) H 11/27/21 Acanthocytes 1+ 11/27/21 Na 136 mmol/L (136-145) 11/27/21 K 4.3 mmol/L (3.5-5.1) 11/27/21 Cl 106 mmol/L (98-107) 11/27/21 CO2 23 mmol/L (21-32) 11/27/21 Anion Gap 7 (3-11) 11/27/21 BUN 22 mg/dl (6-23) 11/27/21 Creatinine 1.15 mg/dl (0.6-1.4) 11/27/21 Estimated GFR ( Amer) 65.9 ml/min 11/27/21 Estimated GFR (Non-Af Amer) 56.9 ml/min 11/27/21 BUN/Creatinine Ratio 19.1 (10-20) 11/27/21 Glu 115 mg/dl (70-99(Fasting)) H 11/27/21 Ca 8.4 mg/dl (8.5-10.1) L 11/27/21 Calcium Level 8.4 mg/dl (8.5-10.1) L 11/27/21 04:45 11/27/21 Microbiology 11/20/21 19:32 Aerobic Blood Culture - Final Blood No growth in Aerobic bottle after 5 days. Anaerobic Blood Culture - Final I & O Totals 24 Hours 11/26/21 11/27/21 11/28/21 06:59 06:59 06:59 Intake Total 1914.300 / 6350.363 9774.000 / 3245.000 Output Total 1150 / 1150 2500 / 2500 Balance 764.300 / 764.300 745.000 / 745.000 Cumulative 11/20/21 14:41 thru 11/27/21 06:00 Intake Total 12911.833 Output Total 33562 Balance 2041.833 RT Ventilator Mngmt (Last Documented) Ventilator Ordered Settings Respiratory Rate 16 11/27/21 06:00 Ventilator - PT Measurements Respiratory Rate 16 Coding Level of Care Code Critical Care 1st 30-74 mins Diagnoses Ischemia of left lower extremity I99.8 COPD (chronic obstructive pulmonary disease) J44.9 Acute osteomyelitis of left foot M86.172 PAD (peripheral artery disease) I73.9 Time Spent (min) 40
[2021-11-27] MEDS ORDERED: STAT IV STA (08:22)
[2021-11-27] MEDS ORDERED: STAT IV Infusion **Titration per Protocol STA ×2 (08:27→14:19)
[2021-11-27] MEDS ORDERED: PHENYLEPHRINE HCL 20 MG in DEXTROSE 5% 500 ML IV SCH (08:30)
[2021-11-27] MEDS ORDERED: CALCIUM GLUCONATE 10% 2,000 MG in DEXTROSE 5% 50 ML IV ONE (08:30)
[2021-11-27] MEDS: ROSUVASTATIN CALCIUM 20 MG TAB PO SCH (08:57)
[2021-11-27] MEDS: MULTIVITAMIN TAB PO SCH (08:58)
[2021-11-27] MEDS: UMECLIDINIUM BROMIDE 62.5MCG/BLISTER 7 PUFFS/INHALER INH SCH (08:58)
[2021-11-27] MEDS: PANTOprazole 40 MG TAB PO SCH (08:58)
[2021-11-27] MEDS: CYANOCOBALAMIN (B-12) 500 MCG TABLET PO SCH (08:58)
[2021-11-27] MEDS: GABAPENTIN 600 MG TAB PO SCH ×3 (08:58→20:13)
[2021-11-27] MEDS: CLOPIDOGREL BISULFATE 75 MG TAB PO SCH (08:58)
[2021-11-27] MEDS: ALBUMIN 25% 100 mL 25 GM/100 ML VIAL IV SCH ×2 (09:01→10:32)
[2021-11-27] MEDS: DOCUSATE SODIUM/SENNA 50/8.6MG TAB PO SCH (09:02)
[2021-11-27] MEDS: POLYETHYLENE (MIRALAX) 17 GM PACK PO SCH (09:08)
[2021-11-27] MEDS: NYSTATIN POWDER 15GM BTL EXT SCH (09:08)
[2021-11-27] MEDS ORDERED: VANCOMYCIN TROUGH ONE (11:30)
[2021-11-27] MEDS: TAMSULOSIN HCL 0.4 MG CAP PO SCH (12:16)
[2021-11-27] MEDS: FINASTERIDE 5 MG TAB PO SCH (12:29)
[2021-11-27] MEDS: traMADol HCL 50 MG TABLET PO PRN ×2 (12:29→19:17)
[2021-11-27] MEDS: VANCOMYCIN HCL 1,500 MG in SODIUM CHLORIDE 0.9% 500 ML IV SCH (12:30)
--- NOTE | 2021-11-27 13:43 | Hospitalist Progress Note ---
Date of Service November 27, 2021 Assessment & Plan (1) Acute osteomyelitis of left foot: Plan: Foot MRI on 11/19 with acute osteomyelitis; wound culture from [facility] wound clinic 11/13/2021 positive for Pseudomonas, Enterococcus. - Blood cultures from 11/20 with / with Micrococcus; likely contaminant. - Continue IV vancomycin & ciprofloxacin - Wound care nursing consult placed. WBC and vitals stable today. (2) PAD (peripheral artery disease): Plan: With ischemic foot. Patient is a chronic vasculopath with history of AAA, carotid artery stenosis, right internal iliac aneurysm, popliteal aneurysm; review of records show that he was started on Xarelto though it is unclear how adherent patient was. - Continue heparin, Plavix, and rosuvastatin. - Pain control PRN - Vascular surgery following: S/p left Femoral Posterior Tibial reverse saphenous vein Bypass with Dr. Gray on 11/05. Transferred to ICU after case. -> Continue heparin gtt until transition to DOAC per vascular. Presently off both, but will defer to vascular. (3) Mood disorder: Plan: Pleasant today. No concerns. - Continue doxepin (4) COPD (chronic obstructive pulmonary disease): Plan: No shortness of breath or wheezing today. - Continue Incruse Ellipta (5) Hyperlipidemia: Plan: - Continue rosuvastatin (6) BPH loc w urin obs/LUTS: Plan: - Continue Flomax & finasteride (7) Tremor: Plan: - Continue Lamictal Admission and Anticipated Discharge Date Admission Date: November 20, 2021 Subjective Confused today. No major issues today. Denies pain, but also keep asking me what the mouth swabs are for. Review of Systems Review of Systems: Unobtainable due to cognitive status Physical Exam Constitutional: WD/WN, vitals as above + acute distress Eyes: EOM intact bilaterally; no conjunctival abnormality ENMT: external ear and nose normal, oropharynx normal Neck: trachea midline, no thyromegaly normal visual inspection Respiratory: normal respiratory effort, lungs clear to auscultation no respiratory distress Cardiovascular: RRR, no murmur, no edema Gastrointestinal (Abdomen): Inspection/Auscultation: abdomen normal to inspection; abdomen not distended Musculoskeletal: no cyanosis or clubbing, extremities motor strength 5/5 Skin: no rashes, warm and dry Neurologic: moves all extremities and awake Psychiatric: Orientation: alert and oriented to person; + not oriented to place, + not oriented to time and + uncooperative Results & Data Results & Data ([facility]) Vital Signs (Past 12 Hours) Vital Signs Temp Pulse Resp BP Pulse Ox 11/27/21 09:25 87 16 95/63 L 97 11/27/21 09:20 86 14 94/66 L 95 11/27/21 09:16 88 26 H 100/55 L 96 11/27/21 09:10 86 14 89/61 L 96 11/27/21 09:05 89 16 76/57 L 96 11/27/21 09:00 88 16 82/54 L 94 11/27/21 08:55 87 13 77/47 L 93 11/27/21 08:50 87 13 65/47 L 92 11/27/21 08:49 87 17 83/40 L 93 11/27/21 08:48 88 18 60/48 L 94 11/27/21 08:45 88 15 56/40 L 92 11/27/21 08:42 88 15 59/42 L 92 11/27/21 08:40 89 16 54/42 L 95 11/27/21 08:39 88 16 67/48 L 93 11/27/21 08:37 87 15 59/50 L 93 11/27/21 08:36 89 20 64/49 L 95 11/27/21 08:35 88 16 59/49 L 95 11/27/21 08:30 88 13 64/48 L 96 11/27/21 08:21 92 H 26 H 60/43 L 94 11/27/21 08:20 92 H 19 96 11/27/21 08:16 93 H 22 62/52 L 95 11/27/21 08:12 94 H 18 66/56 L 94 11/27/21 08:10 93 H 22 95 11/27/21 08:09 94 H 24 68/47 L 95 11/27/21 08:08 95 H 24 69/54 L 95 11/27/21 08:07 97 H 25 H 65/47 L 96 11/27/21 08:00 87 11/27/21 06:00 80 16 95/72 L 11/27/21 05:00 79 13 102/73 96 11/27/21 04:01 78 12 103/73 95 11/27/21 04:00 36.8 C 79 11 L 94 11/27/21 03:00 77 17 92 11/27/21 02:00 82 12 95/67 L 96 PG Care Time/CCT Total # of Minutes Spent Total Time Spent with Patient: Total time spent is greater than 50% in coordination of care (as documented) at patient's floor/unit and/or counseling patient: Coding Level of Care Code 70996 Subseq Hosp Care Lvl 2 Diagnoses Acute osteomyelitis of left foot M86.172 PAD (peripheral artery disease) I73.9 Mood disorder F39 COPD (chronic obstructive pulmonary disease) J44.9 Hyperlipidemia E78.5 BPH loc w urin obs/LUTS N40.1 Tremor R25.1
[2021-11-27] MEDS: PHENYLEPHRINE HCL 20 MG in DEXTROSE 5% 500 ML IV SCH (14:28)
--- NOTE | 2021-11-27 14:34 | Pharmacy Report ---
Pharmacy Vanc AUC Short Note - Date of Service November 27, 2021 - Assessment & Plan Assessment 86 year old M receiving vancomycin and cipro for treatment of osteomyelitis. Pertinent microbiologic data includes:recent wound cx growing pseudomonas and enterococcus faecalis. Vanc trough subtherapeutic today likely due to daily vanc dose not being administered yesterday due to patient being in OR. Day # 8 of antimicrobial therapy. Plan Vancomycin * AUC/AMAURY is the preferred PK/PD target for vancomycin * AUC guided dosing is effective and associated with decreased risk of nephrotoxicity compared to traditional trough targets * Trough level of 7.7 mcg/mL is not predicted to achieve target AUC/AMAURY of 400- 600 mg/L.hr. * Continue dose of 1500 mg IV every 24 hours and administer a one time 750 mg IV supplemental dose to account for lack of dose yesterday. * Trough or random level ordered for: 11/30/21 @1130 Pharmacy will continue to follow and will adjust dose/frequency as necessary. Thank you.
[2021-11-27] MEDS: ARTIFICIAL TEARS OP OINT 3.5 GM TUBE OP PRN (14:47)
[2021-11-27] MEDS ORDERED: VANCOMYCIN HCL 750 MG in SODIUM CHLORIDE 0.9% 250 ML IV SCH (15:30)
[2021-11-27] MEDS: lamoTRIgine 100 MG TAB PO SCH (17:20)
[2021-11-27] MEDS: DOXEPIN HCL 50 MG CAPSULE PO SCH (20:13)
[2021-11-27] MEDS: APIXABAN 2.5 MG TAB PO SCH (20:13)
[2021-11-27] MEDS ORDERED: ENOXAPARIN INJ 40 MG/0.4 ML SYR SQ SCH (21:00)
[2021-11-28] MEDS: PHENYLEPHRINE HCL 20 MG in DEXTROSE 5% 500 ML IV SCH (00:16)
[2021-11-28] MEDS: traMADol HCL 50 MG TABLET PO PRN ×4 (01:03→19:43)
[2021-11-28 05:35] LABS: Basophils # (auto) 0.01 K/uL (0-0.2); Basophils % (auto) 0.1 %; Eosinophils # (auto) 0.05 K/uL (0-0.5); Eosinophils % (auto) 0.5 %; Hematocrit (blood only) 30.4 % (42-52); Hemoglobin 10.1 g/dL (14.0-18.0); Immature Granulocytes # (auto) 0.06 K/uL (0.00-0.02); Immature Granulocytes % (auto) 0.6 %; Lymphocytes # (auto) 1.06 K/uL (1.2-3.4); Lymphocytes % (auto) 11.2 %; Mean Corpuscular Hemoglobin 29.9 pg (25-34); Mean Corpuscular Hgb Conc 33.2 g/dL (32-36); Mean Corpuscular Volume 89.9 fL (80-100); Mean Platelet Volume 9.1 fL (7.4-10.4); Monocytes # (auto) 1.79 K/uL (0.11-0.59); Monocytes % (auto) 18.9 %; Neutrophils # (auto) 6.48 K/uL (1.4-6.5); Neutrophils % (auto) 68.7 %; Platelet Count 196 K/uL (130-400); RDW Coefficient of Variation 14.5 % (11.5-14.5); RDW Standard Deviation 47.7 fL (36.4-46.3); Red Blood Count 3.38 M/uL (4.7-6.1); White Blood Count 9.45 K/uL (4.8-10.8)
[2021-11-28 05:59] LABS: BUN Creatinine Ratio 19.8 (10-20); Calcium 8.9 mg/dl (8.5-10.1); Creatinine Clr Calc Pharmacy 47.8 ml/min; Est GFR (African American) 65.3 ml/min; Est GFR (Non-African American) 56.3 ml/min; Magnesium 1.8 mg/dl (1.7-2.4); Phosphorus 2.8 mg/dl (2.5-4.9); Potassium 3.9 mmol/L (3.5-5.1)
[2021-11-28] MEDS: POLYETHYLENE (MIRALAX) 17 GM PACK PO SCH (07:39)
[2021-11-28] MEDS: UMECLIDINIUM BROMIDE 62.5MCG/BLISTER 7 PUFFS/INHALER INH SCH (07:39)
[2021-11-28] MEDS: DOCUSATE SODIUM/SENNA 50/8.6MG TAB PO SCH (07:40)
[2021-11-28] MEDS: GABAPENTIN 600 MG TAB PO SCH ×3 (07:40→21:47)
[2021-11-28] MEDS: PANTOprazole 40 MG TAB PO SCH (07:41)
[2021-11-28] MEDS: FINASTERIDE 5 MG TAB PO SCH (07:41)
[2021-11-28] MEDS: TAMSULOSIN HCL 0.4 MG CAP PO SCH (07:41)
[2021-11-28] MEDS: CYANOCOBALAMIN (B-12) 500 MCG TABLET PO SCH (07:41)
[2021-11-28] MEDS: CLOPIDOGREL BISULFATE 75 MG TAB PO SCH (07:41)
[2021-11-28] MEDS: MULTIVITAMIN TAB PO SCH (07:41)
[2021-11-28] MEDS: APIXABAN 2.5 MG TAB PO SCH ×2 (07:42→21:47)
[2021-11-28] MEDS: ROSUVASTATIN CALCIUM 20 MG TAB PO SCH (07:42)
[2021-11-28] MEDS: CIPROFLOXACIN / D5W 400 MG/200 ML BAG IV SCH ×2 (07:43→21:52)
[2021-11-28] MEDS: NYSTATIN POWDER 15GM BTL EXT SCH (09:26)
--- NOTE | 2021-11-28 09:28 | Critical Care Progress Note ---
Date of Service November 28, 2021 Assessment & Plan (1) Ischemia of left lower extremity: (2) COPD (chronic obstructive pulmonary disease): (3) Acute osteomyelitis of left foot: (4) PAD (peripheral artery disease): Plan: Impression: 86-year-old male with extensive peripheral vascular disease history presents to the ICU postop following a left femoral to posterior tibial bypass for gangrene of toes and severe limb ischemia 11/26. Neuro -ICU delirium. Improved today. Continue to optimize sleep-wake cycles and avoid benzodiazepines or other medications which potentially could contribute to delirium. Frequent reorientation. Currently on baseline Lamictal. Continue Neurontin as well as well as doxepin at night. Analgesia per vascular surgery. Exam nonfocal and no indication for repeat imaging or additional testing. Cardiac -required Geovani-Synephrine for a brief period of time. Now weaned to off. Echocardiogram from 11/21 showed an EF of greater than 70% without regional wall motion abnormalities. Concentric LVH was noted with mild . Respiratory -COPD. No evidence of bronchospasm. Continue Incruse and nebs as needed. Wean oxygen as tolerated GI -tolerating diet. Continue PPI. RENAL/LYTES - Creatinine currently stable. Continue to follow. Electrolyte replacement as needed - Transition to condom catheter discontinue Han per vascular surgery BPHcontinue Flomax, finasteride ENDO - No history of diabetes or thyroid disease ICU hyperglycemic protocol HEME - H&H stable, no signs of bleeding. Monitor routine CBC and transfuse if indicated ID - Continue Cipro, vancomycin. Will likely need prolonged course of antibiotics. Amputation of the toe per vascular surgery once demarcated LINES/IV ACCESS - Peripheral IVs, arterial line removed DVT PROPHYLAXIS - SCDs, anticoagulation deferred to vascular surgery following procedure PT OT and out of bed to chair if okay with vascular surgery. This point time the patient's critical care issues appear to have resolved. He can transfer out of the ICU from a critical care standpoint. Ultimate disposition per vascular surgery. Critical care services will sign off. Feel free to contact us if we can be of additional assistance. Admission and Anticipated Discharge Date Admission Date: November 20, 2021 Subjective Patient seen and examined. EMR reviewed. Discussed with critical care nurse at bedside. The patient remains concerned about his necrotic toe. He is not reporting any abdominal pain. His surgical sites are not offering him any significant discomfort. He denies any nausea vomiting or diarrhea. No shortness of breath chest discomfort or cough. Review of Systems Review of Systems: All systems reviewed & are unremarkable except as noted in Subjective Physical Exam Constitutional: + altered mental status and + behavioral limitations; no acute distress and not combative Eyes: PERRL, conjunctivae normal, anicteric sclerae ENMT: external ear and nose normal, oropharynx normal Neck: trachea midline, no thyromegaly Respiratory: normal respiratory effort, lungs clear to auscultation Cardiovascular: RRR, no murmur, no edema Gastrointestinal (Abdomen): normal bowel sounds, soft, nontender, no hepatosplenomegaly Musculoskeletal: no cyanosis or clubbing, extremities motor strength 5/5 Neurologic: PERRL, EOMI, accommodation nl, no face palsy, no dysarthria Psychiatric: Orientation: oriented to person and oriented to place; + not oriented to time Results & Data Results & Data ([facility]) Vital Signs (Past 12 Hours) Vital Signs Temp Pulse Resp BP Pulse Ox Pulse Ox 11/28/21 08:11 96 11/28/21 06:00 114/72 11/28/21 05:00 83 16 117/82 93 11/28/21 04:30 80 15 94 11/28/21 04:00 37 C 83 14 133/79 97 11/28/21 03:01 126/80 11/28/21 03:00 84 16 94 11/28/21 02:01 81 18 94 11/28/21 02:00 83 16 91 11/28/21 01:30 81 14 91 11/28/21 01:00 87 19 104/66 90 11/28/21 00:30 92 H 17 92 11/28/21 00:15 85 11/28/21 00:01 82 18 95/63 L 93 11/28/21 00:00 83 15 93 11/27/21 23:12 82 16 91 11/27/21 23:00 37.1 C 83 15 90 11/27/21 22:45 85 20 87/63 L 92 11/27/21 22:30 84 16 91/63 L 91 11/27/21 22:15 85 20 91/61 L 89 L 11/27/21 22:00 84 17 91 11/27/21 21:45 85 17 91 11/27/21 21:30 84 17 91 Critical Care Results & Data Vital Signs (Past 12 Hours) Vital Signs Temp Pulse Resp BP Pulse Ox Pulse Ox 11/28/21 08:11 96 11/28/21 06:00 114/72 11/28/21 05:00 83 16 117/82 93 11/28/21 04:30 80 15 94 11/28/21 04:00 37 C 83 14 133/79 97 11/28/21 03:01 126/80 11/28/21 03:00 84 16 94 11/28/21 02:01 81 18 94 11/28/21 02:00 83 16 91 11/28/21 01:30 81 14 91 11/28/21 01:00 87 19 104/66 90 11/28/21 00:30 92 H 17 92 11/28/21 00:15 85 11/28/21 00:01 82 18 95/63 L 93 11/28/21 00:00 83 15 93 11/27/21 23:12 82 16 91 11/27/21 23:00 37.1 C 83 15 90 11/27/21 22:45 85 20 87/63 L 92 11/27/21 22:30 84 16 91/63 L 91 11/27/21 22:15 85 20 91/61 L 89 L 11/27/21 22:00 84 17 91 11/27/21 21:45 85 17 91 11/27/21 21:30 84 17 91 Lab & Micro Results (Past 24 Hours) RBC 3.38 M/uL (4.7-6.1) L 11/28/21 WBC 9.45 K/uL (4.8-10.8) 11/28/21 Hgb 10.1 g/dL (14.0-18.0) L 11/28/21 Hct 30.4 % (42-52) L 11/28/21 MCV 89.9 fL (80-100) 11/28/21 MCH 29.9 pg (25-34) 11/28/21 MCHC 33.2 g/dL (32-36) 11/28/21 RDW Standard Deviation 47.7 fL (36.4-46.3) H 11/28/21 RDW Coefficient of Variation 14.5 % (11.5-14.5) 11/28/21 Plt Count 196 K/uL (130-400) 11/28/21 MPV 9.1 fL (7.4-10.4) 11/28/21 Neutrophils (%) (Auto) 68.7 % 11/28/21 Lymphocytes (%) (Auto) 11.2 % 11/28/21 Monocytes # (Auto) 1.79 K/uL (0.11-0.59) H 11/28/21 Eosinophils # (Auto) 0.05 K/uL (0-0.5) 11/28/21 Immature Granulocyte % (Auto) 0.6 % 11/28/21 Neutrophils # (Auto) 6.48 K/uL (1.4-6.5) 11/28/21 Lymphocytes # (Auto) 1.06 K/uL (1.2-3.4) L 11/28/21 Monocytes # (Auto) 1.79 K/uL (0.11-0.59) H 11/28/21 Eosinophils # (Auto) 0.05 K/uL (0-0.5) 11/28/21 Basophils # (Auto) 0.01 K/uL (0-0.2) 11/28/21 Immature Granulocyte # (Auto) 0.06 K/uL (0.00-0.02) H 11/28/21 Na 134 mmol/L (136-145) L 11/28/21 K 3.9 mmol/L (3.5-5.1) 11/28/21 Cl 104 mmol/L (98-107) 11/28/21 CO2 23 mmol/L (21-32) 11/28/21 Anion Gap 7 (3-11) 11/28/21 BUN 23 mg/dl (6-23) 11/28/21 Creatinine 1.16 mg/dl (0.6-1.4) 11/28/21 Estimated GFR ( Amer) 65.3 ml/min 11/28/21 Estimated GFR (Non-Af Amer) 56.3 ml/min 11/28/21 BUN/Creatinine Ratio 19.8 (10-20) 11/28/21 Glu 99 mg/dl (70-99(Fasting)) 11/28/21 Ca 8.9 mg/dl (8.5-10.1) 11/28/21 Phosphorus Level 2.8 mg/dl (2.5-4.9) 11/28/21 Mg 1.8 mg/dl (1.7-2.4) 11/28/21 04:53 11/28/21 Calcium Level 8.9 mg/dl (8.5-10.1) 11/28/21 04:53 11/28/21 Microbiology 11/20/21 15:40 Aerobic Blood Culture - Final Blood Micrococcus species Anaerobic Blood Culture - Final No growth in Anaerobic bottle after 5 days. I & O Totals 24 Hours 11/27/21 11/28/21 11/29/21 06:59 06:59 06:59 Intake Total 3245.000 / 3245.000 6333.240 / 6333.240 Output Total 2500 / 2500 5350 / 5350 Balance 745.000 / 745.000 983.240 / 983.240 Cumulative 11/20/21 14:41 thru 11/28/21 05:58 Intake Total 89693.073 Output Total 32721 Balance 3025.073 RT Ventilator Mngmt (Last Documented) Ventilator Ordered Settings Respiratory Rate 16 11/28/21 05:00 Ventilator - PT Measurements Respiratory Rate 16 Coding Level of Care Code 68127 Subseq Hosp Care Lv 2 Diagnoses Ischemia of left lower extremity I99.8 COPD (chronic obstructive pulmonary disease) J44.9 Acute osteomyelitis of left foot M86.172 PAD (peripheral artery disease) I73.9
--- NOTE | 2021-11-28 10:30 | Hospitalist Progress Note ---
Date of Service November 28, 2021 Assessment & Plan (1) Acute osteomyelitis of left foot: Plan: Foot MRI on 11/19 with acute osteomyelitis; wound culture from [facility] wound clinic 11/13/2021 positive for Pseudomonas, Enterococcus. - Blood cultures from 11/20 with / with Micrococcus; likely contaminant. - Continue IV vancomycin & ciprofloxacin - Wound care nursing consult placed. WBC and vitals stable today. -Vascular surgery involved. Will most likely need amputation of left fourth toe once demarcated. -Weightbearing status per vascular surgery -Continue to protect left foot and in particular left fourth toe (2) PAD (peripheral artery disease): Plan: With ischemic foot. Patient is a chronic vasculopath with history of AAA, carotid artery stenosis, right internal iliac aneurysm, popliteal aneurysm; review of records show that he was started on Xarelto though it is unclear how adherent patient was. - Continue heparin, Plavix, and rosuvastatin. - Pain control PRN - Vascular surgery following: S/p left Femoral Posterior Tibial reverse saphenous vein Bypass with Dr. Gray on 11/05. Transferred to ICU after case. Okay to downgrade from intensive care -> Heparin discontinued. Continue apixaban 2.5 mg p.o. twice daily. Also continue clopidogrel 75 mg p.o. daily (3) Mood disorder: Plan: Pleasant today. No concerns. - Continue doxepin (4) COPD (chronic obstructive pulmonary disease): Plan: No shortness of breath or wheezing today. - Continue Incruse Ellipta (5) Hyperlipidemia: Plan: - Continue rosuvastatin (6) BPH loc w urin obs/LUTS: Plan: - Continue Flomax & finasteride (7) Tremor: Plan: - Continue Lamictal Plan: Disposition: Patient okay to downgrade from intensive care. We will put transfer orders in for MedSurg. Anticipate patient will need placement. Referral made to [facility]. PT/OT consulted. Admission and Anticipated Discharge Date Admission Date: November 20, 2021 Supervising Physician Co-Signing Physician Notes chart reviewed, case d/w E Konstantin PAC Subjective Attending: Dr. Purvis Patient seen and examined in room 104. He is alert and oriented today but does have some confusion. He is able to give me his name date of and knows he is in the hospital. He denies any significant pain at the surgical site from the bypass. He was hypotensive during surgery but is now off of all pressors. He denies any fever or chills. He has no other acute complaints at this time. Review of Systems Review of Systems: All systems reviewed & are unremarkable except as noted in Subjective Physical Exam Physical Exam: GENERAL : No acute distress. Appears pleasant. No acute distress. No significant arrhythmias on telemetry since admission EYES: No icterus, gaze conjugate NOSE: No evidence of epistaxis MOUTH: No lesions or candidiasis. Mucosa moist NECK: Supple LUNGS: CTA B/L, no wheezes, rales or rhonchi HEART: Regular, rate controlled ABDOMEN: Soft, NT, ND, BS Present EXTREMITIES: Dressing dry and intact to the left leg. Eschar/gangrene of the left fourth toe. Unable to palpate pulses. Pulse was acquired by Doppler NEURO: Awake and alert. Some confusion. Behavior appropriate. Results & Data Results & Data ([facility]) Vital Signs (Past 12 Hours) Vital Signs Temp Pulse Resp BP Pulse Ox Pulse Ox 11/28/21 08:11 96 11/28/21 06:00 114/72 11/28/21 05:00 83 16 117/82 93 11/28/21 04:30 80 15 94 11/28/21 04:00 37 C 83 14 133/79 97 11/28/21 03:01 126/80 11/28/21 03:00 84 16 94 11/28/21 02:01 81 18 94 11/28/21 02:00 83 16 91 11/28/21 01:30 81 14 91 11/28/21 01:00 87 19 104/66 90 11/28/21 00:30 92 H 17 92 11/28/21 00:15 85 11/28/21 00:01 82 18 95/63 L 93 11/28/21 00:00 83 15 93 11/27/21 23:12 82 16 91 11/27/21 23:00 37.1 C 83 15 90 11/27/21 22:45 85 20 87/63 L 92 11/27/21 22:30 84 16 91/63 L 91 Critical Care Results & Data Vital Signs (Past 12 Hours) Vital Signs Temp Pulse Resp BP Pulse Ox Pulse Ox 11/28/21 08:11 96 11/28/21 06:00 114/72 11/28/21 05:00 83 16 117/82 93 11/28/21 04:30 80 15 94 11/28/21 04:00 37 C 83 14 133/79 97 11/28/21 03:01 126/80 11/28/21 03:00 84 16 94 11/28/21 02:01 81 18 94 11/28/21 02:00 83 16 91 11/28/21 01:30 81 14 91 11/28/21 01:00 87 19 104/66 90 11/28/21 00:30 92 H 17 92 11/28/21 00:15 85 11/28/21 00:01 82 18 95/63 L 93 11/28/21 00:00 83 15 93 11/27/21 23:12 82 16 91 11/27/21 23:00 37.1 C 83 15 90 Lab & Micro Results (Past 24 Hours) RBC 3.38 M/uL (4.7-6.1) L 11/28/21 WBC 9.45 K/uL (4.8-10.8) 11/28/21 Hgb 10.1 g/dL (14.0-18.0) L 11/28/21 Hct 30.4 % (42-52) L 11/28/21 MCV 89.9 fL (80-100) 11/28/21 MCH 29.9 pg (25-34) 11/28/21 MCHC 33.2 g/dL (32-36) 11/28/21 RDW Standard Deviation 47.7 fL (36.4-46.3) H 11/28/21 RDW Coefficient of Variation 14.5 % (11.5-14.5) 11/28/21 Plt Count 196 K/uL (130-400) 11/28/21 MPV 9.1 fL (7.4-10.4) 11/28/21 Neutrophils (%) (Auto) 68.7 % 11/28/21 Lymphocytes (%) (Auto) 11.2 % 11/28/21 Monocytes # (Auto) 1.79 K/uL (0.11-0.59) H 11/28/21 Eosinophils # (Auto) 0.05 K/uL (0-0.5) 11/28/21 Immature Granulocyte % (Auto) 0.6 % 11/28/21 Neutrophils # (Auto) 6.48 K/uL (1.4-6.5) 11/28/21 Lymphocytes # (Auto) 1.06 K/uL (1.2-3.4) L 11/28/21 Monocytes # (Auto) 1.79 K/uL (0.11-0.59) H 11/28/21 Eosinophils # (Auto) 0.05 K/uL (0-0.5) 11/28/21 Basophils # (Auto) 0.01 K/uL (0-0.2) 11/28/21 Immature Granulocyte # (Auto) 0.06 K/uL (0.00-0.02) H 11/28/21 Na 134 mmol/L (136-145) L 11/28/21 K 3.9 mmol/L (3.5-5.1) 11/28/21 Cl 104 mmol/L (98-107) 11/28/21 CO2 23 mmol/L (21-32) 11/28/21 Anion Gap 7 (3-11) 11/28/21 BUN 23 mg/dl (6-23) 11/28/21 Creatinine 1.16 mg/dl (0.6-1.4) 11/28/21 Estimated GFR ( Amer) 65.3 ml/min 11/28/21 Estimated GFR (Non-Af Amer) 56.3 ml/min 11/28/21 BUN/Creatinine Ratio 19.8 (10-20) 11/28/21 Glu 99 mg/dl (70-99(Fasting)) 11/28/21 Ca 8.9 mg/dl (8.5-10.1) 11/28/21 Phosphorus Level 2.8 mg/dl (2.5-4.9) 11/28/21 Mg 1.8 mg/dl (1.7-2.4) 11/28/21 04:53 11/28/21 Calcium Level 8.9 mg/dl (8.5-10.1) 11/28/21 04:53 11/28/21 Microbiology 11/20/21 15:40 Aerobic Blood Culture - Final Blood Micrococcus species Anaerobic Blood Culture - Final No growth in Anaerobic bottle after 5 days. I & O Totals 24 Hours 11/27/21 11/28/21 11/29/21 06:59 06:59 06:59 Intake Total 3245.000 / 3245.000 6333.240 / 6333.240 200 / 200 Output Total 2500 / 2500 5350 / 5350 Balance 745.000 / 745.000 983.240 / 983.240 200 / 200 Cumulative 11/20/21 14:41 thru 11/28/21 09:32 Intake Total 29294.073 Output Total 55766 Balance 3225.073 RT Ventilator Mngmt (Last Documented) Ventilator Ordered Settings Respiratory Rate 16 11/28/21 05:00 Ventilator - PT Measurements Respiratory Rate 16 PG Care Time/CCT Total # of Minutes Spent Total Time Spent with Patient: Total time spent is greater than 50% in coordination of care (as documented) at patient's floor/unit and/or counseling patient: Coding Level of Care Code 48835 Subseq Hosp Care Lvl 2 Diagnoses Acute osteomyelitis of left foot M86.172 PAD (peripheral artery disease) I73.9 Mood disorder F39 COPD (chronic obstructive pulmonary disease) J44.9 Hyperlipidemia E78.5 BPH loc w urin obs/LUTS N40.1 Tremor R25.1 Time Spent (min) 25
--- NOTE | 2021-11-28 11:08 | Surgery Progress Note ---
Date of Service November 28, 2021 Assessment & Plan (1) S/P femoral-tibial bypass: Plan: doing well. Graft patent with good flow. Will let his toe demarcate and will eventually need amputation. May plan on next week. Transfer to floor Admission and Anticipated Discharge Date Admission Date: November 20, 2021 Subjective Patient awake today with no new complaints. Claims his left foot is feeling better Physical Exam Constitutional: WD/WN, vitals as above Respiratory: normal respiratory effort; no respiratory distress Auscultation: lungs clear to auscultation bilaterally Cardiovascular: Rate/Rhythm: regular rate and regular rhythm Vessels: posterior tibial pulses present (good left to doppler) gangrene left 3rd toe, dry Neurologic: CN's II-XI intact bilaterally and moves all extremities Psychiatric: Orientation: alert Results & Data ([facility]) Vital Signs (Past 12 Hours) Vital Signs Temp Pulse Resp BP Pulse Ox Pulse Ox 11/28/21 08:11 96 11/28/21 06:00 114/72 11/28/21 05:00 83 16 117/82 93 11/28/21 04:30 80 15 94 11/28/21 04:00 37 C 83 14 133/79 97 11/28/21 03:01 126/80 11/28/21 03:00 84 16 94 11/28/21 02:01 81 18 94 11/28/21 02:00 83 16 91 11/28/21 01:30 81 14 91 11/28/21 01:00 87 19 104/66 90 11/28/21 00:30 92 H 17 92 11/28/21 00:15 85 11/28/21 00:01 82 18 95/63 L 93 11/28/21 00:00 83 15 93 11/27/21 23:12 82 16 91
[2021-11-28] MEDS: VANCOMYCIN HCL 1,500 MG in SODIUM CHLORIDE 0.9% 500 ML IV SCH (11:30)
[2021-11-28] MEDS: lamoTRIgine 100 MG TAB PO SCH (15:14)
[2021-11-28] MEDS: DOXEPIN HCL 50 MG CAPSULE PO SCH (21:47)
[2021-11-28] MEDS ORDERED: SODIUM CHLORIDE 0.9% 1000ML 1,000 ML IV ONE (23:13)
--- NOTE | 2021-11-28 23:24 | Communication Note ---
Date of Service: November 28, 2021 Responded to zack ruiz alongside Dr. Tolbert at ~11:10PM for hypotension. BP 79/48 w/ manual of 77/40. HR 80. No symptom complaints. Surgery PA was at bedside. At bedside, patient was responding to questions but did appear fatigued/weak. Good pulses bilaterally. 1L of NSS bolus, stat cbc, bmp, ecg ordered. 93/55 on repeat BP. Upgrading to med tele from med/surg. Will recheck BP in 15 min and follow.
[2021-11-28 23:34] LABS: Basophils # (auto) 0.01 K/uL (0-0.2); Basophils % (auto) 0.1 %; Eosinophils # (auto) 0.05 K/uL (0-0.5); Eosinophils % (auto) 0.6 %; Hematocrit (blood only) 28.4 % (42-52); Hemoglobin 9.2 g/dL (14.0-18.0); Immature Granulocytes # (auto) 0.04 K/uL (0.00-0.02); Immature Granulocytes % (auto) 0.5 %; Lymphocytes % (auto) 13.5 %; Mean Corpuscular Hemoglobin 29.2 pg (25-34); Mean Corpuscular Volume 90.2 fL (80-100); Mean Platelet Volume 9.1 fL (7.4-10.4); Monocytes # (auto) 1.32 K/uL (0.11-0.59); Monocytes % (auto) 16.2 %; Neutrophils # (auto) 5.63 K/uL (1.4-6.5); Neutrophils % (auto) 69.1 %; Platelet Count 179 K/uL (130-400); RDW Coefficient of Variation 14.4 % (11.5-14.5); RDW Standard Deviation 47.4 fL (36.4-46.3); Red Blood Count 3.15 M/uL (4.7-6.1); White Blood Count 8.15 K/uL (4.8-10.8)
[2021-11-28 23:59] LABS: BUN Creatinine Ratio 20.4 (10-20); Calcium 8.4 mg/dl (8.5-10.1); Creatinine Clr Calc Pharmacy 37.7 ml/min; Est GFR (Non-African American) 42.3 ml/min
[2021-11-29 00:18] LABS: Mean Corpuscular Hgb Conc 32.4 g/dL (32-36)
[2021-11-29 06:13] LABS: Hematocrit (blood only) 30.6 % (42-52); Hemoglobin 9.8 g/dL (14.0-18.0); Mean Corpuscular Hemoglobin 29.1 pg (25-34); Mean Corpuscular Volume 90.8 fL (80-100); Mean Platelet Volume 9.4 fL (7.4-10.4); Platelet Count 193 K/uL (130-400); RDW Coefficient of Variation 14.4 % (11.5-14.5); RDW Standard Deviation 47.7 fL (36.4-46.3); Red Blood Count 3.37 M/uL (4.7-6.1); White Blood Count 8.76 K/uL (4.8-10.8)
[2021-11-29 06:41] LABS: BUN Creatinine Ratio 20.3 (10-20); Calcium 8.7 mg/dl (8.5-10.1); Creatinine Clr Calc Pharmacy 40.2 ml/min; Est GFR (African American) 52.9 ml/min; Est GFR (Non-African American) 45.6 ml/min; Potassium 3.9 mmol/L (3.5-5.1)
[2021-11-29] MEDS: ROSUVASTATIN CALCIUM 20 MG TAB PO SCH (08:10)
[2021-11-29] MEDS: CLOPIDOGREL BISULFATE 75 MG TAB PO SCH (08:10)
[2021-11-29] MEDS: TAMSULOSIN HCL 0.4 MG CAP PO SCH (08:11)
[2021-11-29] MEDS: CYANOCOBALAMIN (B-12) 500 MCG TABLET PO SCH (08:11)
[2021-11-29] MEDS: GABAPENTIN 600 MG TAB PO SCH ×3 (08:11→20:26)
[2021-11-29] MEDS: PANTOprazole 40 MG TAB PO SCH (08:11)
[2021-11-29] MEDS: FINASTERIDE 5 MG TAB PO SCH (08:11)
[2021-11-29] MEDS: APIXABAN 2.5 MG TAB PO SCH ×2 (08:11→20:26)
[2021-11-29] MEDS: MULTIVITAMIN TAB PO SCH (08:11)
[2021-11-29] MEDS: CIPROFLOXACIN / D5W 400 MG/200 ML BAG IV SCH ×2 (08:12→20:26)
[2021-11-29] MEDS: NYSTATIN POWDER 15GM BTL EXT SCH (08:13)
[2021-11-29] MEDS: UMECLIDINIUM BROMIDE 62.5MCG/BLISTER 7 PUFFS/INHALER INH SCH (08:13)
[2021-11-29] MEDS: POLYETHYLENE (MIRALAX) 17 GM PACK PO SCH (08:17)
[2021-11-29] MEDS: DOCUSATE SODIUM/SENNA 50/8.6MG TAB PO SCH (08:17)
--- NOTE | 2021-11-29 09:40 | Surgery Progress Note ---
Date of Service November 29, 2021 Assessment & Plan (1) S/P femoral-tibial bypass: Plan: doing well. Graft patent with good flow. BP much better this am. Need to increase activity Admission and Anticipated Discharge Date Admission Date: November 20, 2021 Subjective Patient awake today with no new complaints. Claims his left foot is feeling better. Asking when he can walk Physical Exam Constitutional: average body habitus and + frail appearing Cardiovascular: Vessels: posterior tibial pulses present (good left to doppler) Skin: + incision (dressing intact.) Psychiatric: Orientation: alert Results & Data ([facility]) Vital Signs (Past 12 Hours) Vital Signs Temp Pulse Pulse Resp BP BP Pulse Ox 11/29/21 08:02 37.0 C 79 19 144/80 H 95 11/29/21 04:12 36.8 C 76 16 125/70 93 11/29/21 00:24 36.9 C 82 20 128/73 93 11/28/21 23:52 36.7 C 79 18 100/61 93 11/28/21 23:00 77/40 L 11/28/21 22:58 79/48 L 11/28/21 22:35 36.8 C 80 17 85/50 L 93 11/28/21 22:30 62/38 L
--- NOTE | 2021-11-29 09:46 | Electrocardiogram Report ---
Test Reason : Blood Pressure : / mmHG Vent. Rate : 079 BPM Atrial Rate : 079 BPM P-R Int : 152 ms QRS Dur : 094 ms QT Int : 398 ms P-R-T Axes : 056 057 010 degrees QTc Int : 456 ms Normal sinus rhythm Normal ECG When compared with ECG of 06-OCT-2021 12:38, No significant change was found Confirmed by Andrew Tadeo ([id number]) on 11/29/2021 9:45:48 AM Referred By: REFERRED SELF Confirmed By:Andrew Tadeo
[2021-11-29] MEDS: ADVANCED PROBIOTIC 1250 MG CAPSULE PO SCH (09:52)
[2021-11-29] MEDS: VANCOMYCIN HCL 1,500 MG in SODIUM CHLORIDE 0.9% 500 ML IV SCH (12:08)
[2021-11-29] MEDS: lamoTRIgine 100 MG TAB PO SCH (14:30)
--- NOTE | 2021-11-29 17:45 | Hospitalist Progress Note ---
Date of Service November 29, 2021 Assessment & Plan (1) Acute osteomyelitis of left foot: Plan: Left Foot MRI on 11/19 -- "Findings suggestive of acute osteomyelitis within the head of the proximal phalanx of the left third toe and the middle phalanx of the left fourth toe. Mild marrow edema within the middle phalanx of the left third toe and the proximal phalanx of the left fourth toe suggestive of osteitis: Wound culture from [facility] wound clinic 11/13/2021 positive for Pseudomonas, Enterococcus. Blood cultures from 11/20 with 10/14 with Micrococcus - likely contaminant. Continue IV vancomycin for enterococcus & ciprofloxacin for pseudomonas. Unfortunately cannot use ampicillin for enterococcus due to PCN allergy (shock). Will need amputation of left fourth toe once demarcated (per vascular). (2) Gangrene of toe of left foot: Plan: 4th toe - will need amputation. Antibiotics in meantime as in #1 above. (3) Left ankle pain: Plan: gout? pseudogout? other? start with x-rays. then consider uric acid level and/or empiric colchicine, etc. (4) Acute metabolic encephalopathy: Plan: likely 2nd to #1, #2. cannot rule out hospital psychosis. avoid benzos, etc. (5) PAD (peripheral artery disease): Plan: With ischemia to left foot and resulting L 4th toe gangrene - s/p left Femoral Posterior Tibial reverse saphenous vein bypass with Dr. Gray on 11/05. Also with History of AAA, carotid artery stenosis, right internal iliac aneurysm, popliteal aneurysm. Continue apixaban 2.5 mg p.o. twice daily. Continue clopidogrel 75 mg p.o. daily. Continue crestor 20mg daily. (6) Mood disorder: Plan: continue doxepin (7) COPD (chronic obstructive pulmonary disease): Plan: stable, no flare continue Incruse Ellipta (8) Hyperlipidemia: Plan: Continue rosuvastatin (9) BPH loc w urin obs/LUTS: Plan: Continue Flomax & finasteride (10) Tremor: Plan: Continue Lamictal (11) Hyponatremia: Plan: etiology? either way it is mild and stable trend if any worsening then check serum osm, urine osm, etc (12) DVT prophylaxis: Plan: eliquis 2.5mg BID Plan: Referral made to [facility] for placement. Cont PT/OT. Admission and Anticipated Discharge Date Admission Date: November 20, 2021 Subjective pt confused during the visit did c/o left ankle pain - stated it was present "for a year" then changed the story, stating maybe "months?" hurts at rest and at night-time per nursing flowsheets eating well Review of Systems Review of Systems: gen - no fever cv - denies chest pain pulm - no dyspnea GI - no abd pain Physical Exam Physical Exam: gen - lying in bed comfortably, pleasantly confused neck - no JVD mouth - no thrush heart - RRR, s1 s2 lungs - CTA b/l abd - soft NT BS+ ext - b/l legs and feet warm, pulses 2+ left foot, 1-2+ right foot; left leg edema about 1+ musculo - left ankle - gross swelling, mildly tender with palpation and with passive ROM; not hot or red skin - left leg dressings intact and clean; entire left 4th toe dry gangrene (black in color, etc) Results & Data Results & Data ([facility]) Vital Signs (Past 12 Hours) Vital Signs Temp Pulse Resp BP Pulse Ox 11/29/21 16:17 36.8 C 87 18 124/64 92 11/29/21 11:44 36.6 C 73 19 106/65 95 11/29/21 08:02 37.0 C 79 19 144/80 H 95 Laboratory Results Laboratory Results - last 24 hr 11/28/21 11/28/21 11/28/21 23:11 23:17 23:17 WBC 8.15 RBC 3.15 L Hgb 9.2 L Hct 28.4 L MCV 90.2 MCH 29.2 MCHC 32.4 RDW Std Deviation 47.4 H RDW Coeff of [place] 14.4 Plt Count 179 MPV 9.1 Immature Gran % (Auto) 0.5 Neut % (Auto) 69.1 Lymph % (Auto) 13.5 [place] % (Auto) 16.2 Eos % (Auto) 0.6 Baso % (Auto) 0.1 Neut # (Auto) 5.63 Lymph # (Auto) 1.10 L [place] # (Auto) 1.32 H Eos # (Auto) 0.05 Baso # (Auto) 0.01 Immature Gran # (Auto) 0.04 H Sodium 132 L Potassium 4.0 Chloride 103 Carbon Dioxide 21 Anion Gap 8 BUN 30 H Creatinine 1.47 H D Est Cr Clr Drug Dosing 37.7 Est GFR ( Amer) 49.0 Est GFR (Non-Af Amer) 42.3 BUN/Creatinine Ratio 20.4 H Glucose 115 H POC Glucose 125 H Calcium 8.4 L Magnesium 11/29/21 11/29/21 05:29 05:32 WBC 8.76 RBC 3.37 L Hgb 9.8 L Hct 30.6 L MCV 90.8 MCH 29.1 MCHC 32.0 RDW Std Deviation 47.7 H RDW Coeff of [place] 14.4 Plt Count 193 MPV 9.4 Immature Gran % (Auto) Neut % (Auto) Lymph % (Auto) [place] % (Auto) Eos % (Auto) Baso % (Auto) Neut # (Auto) Lymph # (Auto) [place] # (Auto) Eos # (Auto) Baso # (Auto) Immature Gran # (Auto) Sodium 135 L Potassium 3.9 Chloride 105 Carbon Dioxide 23 Anion Gap 7 BUN 28 H Creatinine 1.38 Est Cr Clr Drug Dosing 40.2 Est GFR ( Amer) 52.9 Est GFR (Non-Af Amer) 45.6 BUN/Creatinine Ratio 20.3 H Glucose 94 POC Glucose Calcium 8.7 Magnesium 2.0 PG Care Time/CCT Total # of Minutes Spent Total Time Spent with Patient: Total time spent is greater than 50% in coordination of care (as documented) at patient's floor/unit and/or counseling patient: Coding Level of Care Code 60919 Subseq Hosp Care Lvl 2 Diagnoses Acute osteomyelitis of left foot M86.172 PAD (peripheral artery disease) I73.9 Mood disorder F39 COPD (chronic obstructive pulmonary disease) J44.9 Hyperlipidemia E78.5 BPH loc w urin obs/LUTS N40.1 Tremor R25.1 Gangrene of toe of left foot I96 Left ankle pain M25.572 Acute metabolic encephalopathy G93.41 Hyponatremia E87.1 DVT prophylaxis Z29.9
--- NOTE | 2021-11-29 18:02 | XRay Report ---
LEFT ANKLE 2 VIEWS CLINICAL HISTORY: Left ankle pain. FINDINGS: AP and crosstable lateral views of the left ankle are compared to study dated 10/06/2021. T he skeletal structures are osteopenic. No fracture is identified. The ankle mortise is intact. There is a large plantar calcaneal enthesophyte. Soft tissue edema is present throughout the calf, greatest around the ankle joint. No erosive disease or soft tissue calcification is identified. Skin clips ar e noted in the medial calf. Tiny metallic foreign bodies are seen within the soft tissues anterior to the distal tibial shaft. IMPRESSION: 1. Soft tissue swelling with no acute bony abnormality identified. 2. Metallic foreign bodies and skin clips as above. Electronically signed by: Devendra Arreola M.D. 11/29/2021 6:01 PM
[2021-11-29] MEDS: HYDROCODONE/ACETAMOPHEN 5/325MG TAB PO PRN (19:30)
[2021-11-29] MEDS: DOXEPIN HCL 50 MG CAPSULE PO SCH (20:26)
[2021-11-30] MEDS: MULTIVITAMIN TAB PO SCH (08:07)
[2021-11-30] MEDS: TAMSULOSIN HCL 0.4 MG CAP PO SCH (08:08)
[2021-11-30] MEDS: CYANOCOBALAMIN (B-12) 500 MCG TABLET PO SCH (08:08)
[2021-11-30] MEDS: ROSUVASTATIN CALCIUM 20 MG TAB PO SCH (08:08)
[2021-11-30] MEDS: CIPROFLOXACIN / D5W 400 MG/200 ML BAG IV SCH ×2 (08:08→20:39)
[2021-11-30] MEDS: FINASTERIDE 5 MG TAB PO SCH (08:08)
[2021-11-30] MEDS: ADVANCED PROBIOTIC 1250 MG CAPSULE PO SCH (08:08)
[2021-11-30] MEDS: CLOPIDOGREL BISULFATE 75 MG TAB PO SCH (08:08)
[2021-11-30] MEDS: PANTOprazole 40 MG TAB PO SCH (08:08)
[2021-11-30] MEDS: GABAPENTIN 600 MG TAB PO SCH ×3 (08:08→20:30)
[2021-11-30] MEDS: UMECLIDINIUM BROMIDE 62.5MCG/BLISTER 7 PUFFS/INHALER INH SCH (08:09)
[2021-11-30] MEDS: APIXABAN 2.5 MG TAB PO SCH ×2 (08:09→20:31)
[2021-11-30] MEDS: NYSTATIN POWDER 15GM BTL EXT SCH (08:10)
[2021-11-30] MEDS: DOCUSATE SODIUM/SENNA 50/8.6MG TAB PO SCH (08:11)
[2021-11-30] MEDS: POLYETHYLENE (MIRALAX) 17 GM PACK PO SCH ×2 (08:11→20:21)
[2021-11-30 08:13] LABS: Creatinine Clr Calc Pharmacy 40.2 ml/min; Est GFR (African American) 52.9 ml/min; Est GFR (Non-African American) 45.6 ml/min
[2021-11-30] MEDS ORDERED: VANCOMYCIN TROUGH ONE (11:30)
[2021-11-30] MEDS: VANCOMYCIN HCL 1,500 MG in SODIUM CHLORIDE 0.9% 500 ML IV SCH (12:03)
--- NOTE | 2021-11-30 13:42 | Pharmacy Report ---
Pharmacy [facility] Short Note - Date of Service November 30, 2021 - Assessment & Plan Assessment 86 year old M receiving vancomycin and cipro for treatment of osteomyelitis. Pertinent microbiologic data includes:recent wound cx growing pseudomonas and enterococcus faecalis. Vanc trough 13.0 today. Continue current therapy at 1500mg IV Q24H. Plan
[2021-11-30] MEDS: lamoTRIgine 100 MG TAB PO SCH (14:12)
[2021-11-30] MEDS ORDERED: bisacodyL 10 MG SUPP PR ONE (17:16)
[2021-11-30] MEDS: HYDROCODONE/ACETAMOPHEN 5/325MG TAB PO PRN (18:10)
--- NOTE | 2021-11-30 18:39 | Hospitalist Progress Note ---
Date of Service November 30, 2021 Assessment & Plan (1) Acute osteomyelitis of left foot: Plan: Left Foot MRI on 11/19 -- "Findings suggestive of acute osteomyelitis within the head of the proximal phalanx of the left third toe and the middle phalanx of the left fourth toe. Mild marrow edema within the middle phalanx of the left third toe and the proximal phalanx of the left fourth toe suggestive of osteitis: Wound culture from [facility] wound clinic 11/13/2021 positive for Pseudomonas, Enterococcus. Blood cultures from 11/20 with 10/14 with Micrococcus - likely contaminant. Continue IV vancomycin for enterococcus & ciprofloxacin for pseudomonas. Unfortunately cannot use ampicillin for enterococcus due to PCN allergy (shock). Will need amputation of 3rd toe of L foot as well as likely the 4th toe. I corresponded with Dr Gray - he is planning for amputation likely later this week. (2) Gangrene of toe of left foot: Plan: 3th toe - will need amputation. Antibiotics in meantime as in #1 above. (3) Left ankle pain: Plan: x-rays unremarkable. uric acid level am. pain is improved today regardless of etiology. (4) Acute metabolic encephalopathy: Plan: likely 2nd to #1, #2. cannot rule out hospital psychosis. avoid benzos, etc. I spoke with the pt's son today - he reports his father has been dx with dementia in the past. (5) PAD (peripheral artery disease): Plan: With ischemia to left foot and resulting L 3th toe gangrene - s/p left Femoral Posterior Tibial reverse saphenous vein bypass with Dr. Gray on 11/26/21. Also with History of AAA, carotid artery stenosis, right internal iliac aneurysm, popliteal aneurysm. Continue apixaban 2.5 mg p.o. twice daily. Continue clopidogrel 75 mg p.o. daily. Continue crestor 20mg daily. (6) Mood disorder: Plan: continue doxepin (7) COPD (chronic obstructive pulmonary disease): Plan: stable, no flare continue Incruse Ellipta (8) Hyperlipidemia: Plan: Continue rosuvastatin (9) BPH loc w urin obs/LUTS: Plan: Continue Flomax & finasteride Han is in place (10) Tremor: Plan: Continue Lamictal (11) Hyponatremia: Plan: improved 135 yesterday trend (12) DVT prophylaxis: Plan: eliquis 2.5mg BID Plan: Referral made to [facility] following his toe amputation. Cont PT/OT. Constipation - increase miralax to BID. dulcolax suppos x 1 today. updated pt's son by phone today. Admission and Anticipated Discharge Date Admission Date: November 20, 2021 Subjective patient lying in bed watching sports on TV he was confused like yesterday - telling me about his leg, asking questions not related to his care, then mentioning stories that were not medically related that made no sense despite such he knew it was Wednesday and that it was November denied pain in left ankle today he thinks he is having surgery tomorrow; when asked why he thinks such he just looked at me eating ok per nursing flowsheets no BM in 5+ days Review of Systems Review of Systems: cv - denies cp or orthopnea pulm - denies dyspnea GI - denies abd pain Physical Exam Physical Exam: gen - lying in bed comfortably, pleasantly confused neck - no JVD mouth - no thrush heart - RRR, s1 s2 lungs - CTA b/l abd - soft NT BS+ ext - b/l legs and feet warm, pulses 2+ left foot, 1-2+ right foot; left leg edema about <1+ today musculo - left ankle - gross swelling improved today; no tenderness to palpation today skin - left leg dressings intact and clean; entire left 3th toe dry gangrene (black in color), no cap refill; cap refill 4th toe sluggish Results & Data Results & Data ([facility]) Vital Signs (Past 12 Hours) Vital Signs Temp Pulse Pulse Resp BP Pulse Ox Pulse Ox 11/30/21 16:00 92 11/30/21 14:51 82 11/30/21 14:43 36.6 C 62 18 107/65 11/30/21 11:20 36.7 C 76 19 108/65 11/30/21 08:00 95 11/30/21 07:29 36.7 C 80 16 154/74 H 95 11/30/21 07:19 78 Laboratory Results Cr 1.38 PG Care Time/CCT Total # of Minutes Spent Total Time Spent with Patient: Total time spent is greater than 50% in coordination of care (as documented) at patient's floor/unit and/or counseling patient: Coding Level of Care Code 37495 Subseq Hosp Care Lvl 2 Diagnoses Acute osteomyelitis of left foot M86.172 Gangrene of toe of left foot I96 Left ankle pain M25.572 Acute metabolic encephalopathy G93.41 PAD (peripheral artery disease) I73.9 Mood disorder F39 COPD (chronic obstructive pulmonary disease) J44.9 Hyperlipidemia E78.5 BPH loc w urin obs/LUTS N40.1 Tremor R25.1 Hyponatremia E87.1 DVT prophylaxis Z29.9
[2021-11-30] MEDS: DOXEPIN HCL 50 MG CAPSULE PO SCH (20:31)
[2021-11-30] MEDS: DICLOFENAC SOD 1% GEL 100 GM TUBE EXT SCH (20:43)
[2021-12-01] MEDS: HYDROCODONE/ACETAMOPHEN 5/325MG TAB PO PRN ×2 (04:01→20:39)
[2021-12-01 08:50] LABS: BUN Creatinine Ratio 20.4 (10-20); Calcium 8.7 mg/dl (8.5-10.1); Est GFR (African American) 51.1 ml/min; Est GFR (Non-African American) 44.1 ml/min; Potassium 3.9 mmol/L (3.5-5.1); Uric Acid 6.9 mg/dl (2.6-7.2)
[2021-12-01] MEDS: DICLOFENAC SOD 1% GEL 100 GM TUBE EXT SCH ×4 (09:11→20:37)
[2021-12-01] MEDS: UMECLIDINIUM BROMIDE 62.5MCG/BLISTER 7 PUFFS/INHALER INH SCH (09:11)
[2021-12-01] MEDS: CLOPIDOGREL BISULFATE 75 MG TAB PO SCH (09:11)
[2021-12-01] MEDS: FINASTERIDE 5 MG TAB PO SCH (09:12)
[2021-12-01] MEDS: ADVANCED PROBIOTIC 1250 MG CAPSULE PO SCH (09:12)
[2021-12-01] MEDS: ROSUVASTATIN CALCIUM 20 MG TAB PO SCH (09:12)
[2021-12-01] MEDS: MULTIVITAMIN TAB PO SCH (09:12)
[2021-12-01] MEDS: CYANOCOBALAMIN (B-12) 500 MCG TABLET PO SCH (09:13)
[2021-12-01] MEDS: TAMSULOSIN HCL 0.4 MG CAP PO SCH (09:13)
[2021-12-01] MEDS: PANTOprazole 40 MG TAB PO SCH (09:13)
[2021-12-01] MEDS: POLYETHYLENE (MIRALAX) 17 GM PACK PO SCH ×2 (09:14→20:38)
[2021-12-01] MEDS: APIXABAN 2.5 MG TAB PO SCH ×2 (09:14→20:38)
[2021-12-01] MEDS: GABAPENTIN 600 MG TAB PO SCH ×3 (09:15→20:37)
[2021-12-01] MEDS: ARTIFICIAL TEARS OP OINT 3.5 GM TUBE OP PRN (09:16)
[2021-12-01] MEDS: CIPROFLOXACIN / D5W 400 MG/200 ML BAG IV SCH ×2 (10:27→20:41)
[2021-12-01] MEDS: DOCUSATE SODIUM/SENNA 50/8.6MG TAB PO SCH (10:27)
[2021-12-01] MEDS: NYSTATIN POWDER 15GM BTL EXT SCH (10:28)
[2021-12-01] MEDS: VANCOMYCIN HCL 1,500 MG in SODIUM CHLORIDE 0.9% 500 ML IV SCH (12:28)
[2021-12-01] MEDS: COLCHICINE 0.6 MG TAB PO SCH (14:46)
--- NOTE | 2021-12-01 15:16 | Communication Note ---
Date of Service: December 01, 2021 Pt scheduled for LLE 3rd and 4th toe amputation in OR tomorrow by Dr Quiñonez. Procedure, risks, benefits, and alternatives discussed with patient by myself at Dr Quiñonez's request. Patient expresses understanding and agreement to proceed.
[2021-12-01] MEDS: lamoTRIgine 100 MG TAB PO SCH (15:39)
--- NOTE | 2021-12-01 19:33 | Hospitalist Progress Note ---
Date of Service December 01, 2021 Assessment & Plan (1) Acute osteomyelitis of left foot: Plan: Left Foot MRI on 11/19 -- "Findings suggestive of acute osteomyelitis within the head of the proximal phalanx of the left third toe and the middle phalanx of the left fourth toe. Mild marrow edema within the middle phalanx of the left third toe and the proximal phalanx of the left fourth toe suggestive of osteitis: Wound culture from [facility] wound clinic 11/13/2021 positive for Pseudomonas, Enterococcus. Blood cultures from 11/20 with 10/14 with Micrococcus - likely contaminant. Continue IV vancomycin for enterococcus & ciprofloxacin for pseudomonas. To have amputation of 3rd toe of L foot as well as likely the 4th toe. Amputation likely tomorrow. (2) Gangrene of toe of left foot: Plan: 3th toe - will need amputation. Antibiotics in meantime as in #1 above. (3) Left ankle pain: Plan: x-rays unremarkable. uric acid level is high (nearly 7). could be gouty joint. will star colchicine daily for a few days and reassess response. (4) Acute metabolic encephalopathy: Plan: likely 2nd to #1, #2. cannot rule out hospital psychosis. avoid benzos, etc. I spoke with the pt's son and he reports his father has been dx with dementia in the past. (5) PAD (peripheral artery disease): Plan: With ischemia to left foot and resulting L 3th toe gangrene - s/p left Femoral Posterior Tibial reverse saphenous vein bypass with Dr. Gray on 11/26/21. Also with History of AAA, carotid artery stenosis, right internal iliac aneurysm, popliteal aneurysm. Continue apixaban 2.5 mg p.o. twice daily. Continue clopidogrel 75 mg p.o. daily. Continue crestor 20mg daily. (6) Mood disorder: Plan: continue doxepin (7) COPD (chronic obstructive pulmonary disease): Plan: stable, no flare continue Incruse Ellipta (8) Hyperlipidemia: Plan: Continue rosuvastatin (9) BPH loc w urin obs/LUTS: Plan: Continue Flomax & finasteride Han is in place (10) Tremor: Plan: Continue Lamictal (11) Hyponatremia: Plan: recheck bmp am (12) DVT prophylaxis: Plan: eliquis 2.5mg BID Plan: Referrals made to SNFs for post-discharge. Cont PT/OT. Constipation - cont miralax. updated pt's son by phone today once again. Admission and Anticipated Discharge Date Admission Date: November 20, 2021 Subjective patient sleeping upon arrival awakens easily offered no complaints was confused, not able to give great details, but did remember he was having surgery on his foot tomorrow tele overnight wnl Review of Systems Review of Systems: cv - denied any chest pain pulm - denied any dyspnea GI - denied any pain Physical Exam Physical Exam: gen - lying in bed comfortably, confused, speech difficult to understand at times neck - no JVD mouth - no thrush heart - RRR, s1 s2 lungs - CTA b/l abd - soft NT BS+ ext - b/l legs and feet warm, pulses 2+ left foot, 1-2+ right foot; left leg edema about <1+ today musculo - left ankle - gross swelling improved but still mildly swollen skin - left leg dressings intact and clean; entire left 3th toe dry gangrene/black in appearance, no cap refill; cap refill 4th toe sluggish Results & Data Results & Data ([facility]) Vital Signs (Past 12 Hours) Vital Signs Temp Pulse Pulse Pulse Resp BP Pulse Ox 12/01/21 16:00 12/01/21 15:27 37 C 73 20 117/70 93 12/01/21 14:19 73 12/01/21 11:22 36.4 C L 73 20 107/63 93 12/01/21 08:00 Pulse Ox 12/01/21 16:00 94 12/01/21 15:27 12/01/21 14:19 12/01/21 11:22 12/01/21 08:00 94 Laboratory Results Laboratory Results - last 24 hr 12/01/21 08:02 Sodium 135 L Potassium 3.9 Chloride 105 Carbon Dioxide 24 Anion Gap 6 BUN 29 H Creatinine 1.42 H Est Cr Clr Drug Dosing 39.0 Est GFR ( Amer) 51.1 Est GFR (Non-Af Amer) 44.1 BUN/Creatinine Ratio 20.4 H Glucose 92 Uric Acid 6.9 Calcium 8.7 PG Care Time/CCT Total # of Minutes Spent Total Time Spent with Patient: Total time spent is greater than 50% in coordination of care (as documented) at patient's floor/unit and/or counseling patient: Coding Level of Care Code 10524 Subseq Hosp Care Lvl 2 Diagnoses Acute osteomyelitis of left foot M86.172 Gangrene of toe of left foot I96 Left ankle pain M25.572 Acute metabolic encephalopathy G93.41 PAD (peripheral artery disease) I73.9 Mood disorder F39 COPD (chronic obstructive pulmonary disease) J44.9 Hyperlipidemia E78.5 BPH loc w urin obs/LUTS N40.1 Tremor R25.1 Hyponatremia E87.1 DVT prophylaxis Z29.9
[2021-12-01] MEDS: DOXEPIN HCL 50 MG CAPSULE PO SCH (20:39)
[2021-12-02 07:16] LABS: BUN Creatinine Ratio 21.4 (10-20); Calcium 8.5 mg/dl (8.5-10.1); Creatinine Clr Calc Pharmacy 47.9 ml/min; Est GFR (Non-African American) 50.9 ml/min; Potassium 3.9 mmol/L (3.5-5.1)
[2021-12-02] MEDS: UMECLIDINIUM BROMIDE 62.5MCG/BLISTER 7 PUFFS/INHALER INH SCH (08:52)
[2021-12-02] MEDS: POLYETHYLENE (MIRALAX) 17 GM PACK PO SCH ×2 (08:52→20:49)
[2021-12-02] MEDS: NYSTATIN POWDER 15GM BTL EXT SCH (08:52)
[2021-12-02] MEDS: DICLOFENAC SOD 1% GEL 100 GM TUBE EXT SCH ×4 (08:52→20:50)
[2021-12-02] MEDS: ADVANCED PROBIOTIC 1250 MG CAPSULE PO SCH (08:53)
[2021-12-02] MEDS: FINASTERIDE 5 MG TAB PO SCH (08:54)
[2021-12-02] MEDS: APIXABAN 2.5 MG TAB PO SCH ×2 (08:54→20:50)
[2021-12-02] MEDS: COLCHICINE 0.6 MG TAB PO SCH (08:54)
[2021-12-02] MEDS: TAMSULOSIN HCL 0.4 MG CAP PO SCH (08:54)
[2021-12-02] MEDS: MULTIVITAMIN TAB PO SCH (08:55)
[2021-12-02] MEDS: ROSUVASTATIN CALCIUM 20 MG TAB PO SCH (08:55)
[2021-12-02] MEDS: CYANOCOBALAMIN (B-12) 500 MCG TABLET PO SCH (08:55)
[2021-12-02] MEDS: PANTOprazole 40 MG TAB PO SCH (08:56)
[2021-12-02] MEDS: GABAPENTIN 600 MG TAB PO SCH ×3 (08:56→20:50)
[2021-12-02] MEDS: CIPROFLOXACIN / D5W 400 MG/200 ML BAG IV SCH ×2 (09:36→20:51)
[2021-12-02] MEDS: DOCUSATE SODIUM/SENNA 50/8.6MG TAB PO SCH (09:37)
[2021-12-02] MEDS: CLOPIDOGREL BISULFATE 75 MG TAB PO SCH (10:11)
[2021-12-02] MEDS: HYDROCODONE/ACETAMOPHEN 5/325MG TAB PO PRN (11:49)
[2021-12-02] MEDS: VANCOMYCIN HCL 1,500 MG in SODIUM CHLORIDE 0.9% 500 ML IV SCH (11:50)
[2021-12-02] MEDS ORDERED: ONDANSETRON INJ 2 MG/ML 2 ML VIAL IV PRN (12:33)
[2021-12-02] MEDS: lamoTRIgine 100 MG TAB PO SCH (16:36)
--- NOTE | 2021-12-02 18:49 | Anesthesiology Consultation ---
Date of Service December 02, 2021 Assessment & Plan (1) Encounter for pre-operative examination: Chart Review Chart Review: Acceptable Risk for Surgery and Patient NOT seen in Pre Admission Testing Patient with acute osteo of left foot. Plan for OR 12/03/21. Patient with acute metabolic encephalopathy with underlying dementia. Will need to assess DOS to see if he or patient's son should sign consent. Covid neg 11/21/21. Patient has been hospitalized since then so should not need repeat covid screening. Consults Requested none History Surgery Operation Date: 11/24/21 08:00 Proposed Procedures p Left Lower Extermity Arteriogram Possible Intervention - Jamel Gray MD Operation Date: 11/26/21 12:50 Proposed Procedures p Left Femoral Posterior Tibial Bypass - Jamel Gray MD Operation Date: 12/03/21 13:10 Proposed Procedures p Left Foot Transmetatarsal Amputation 4th and 3rd Toe - Jamel Gray MD Height/Weight Height: 5 ft 11 in Weight: 91.9 kg Allergies Allergy/AdvReac Type Severity Reaction Status Date / Time Penicillins Allergy Severe SHOCK Verified 11/20/21 13:54 aspirin Allergy Intermediate Swelling Verified 11/20/21 13:54 Medications Home Medications Medication Instructions Recorded Confirmed Last Taken multivitamin (Daily Multi-Vitamin) 1 tab PO DAILY #30 tab 03/09/19 11/20/21 11/20/21 ipratropium 20 mcg-albuterol 100 1 puffs INHALATION QID PRN gm 07/07/19 11/20/21 Unknown mcg/actuation mist for inhalation tiotropium bromide 18 mcg capsule 1 cap INHALATION DAILY puffs 07/07/19 11/20/21 11/20/21 with inhalation device tamsulosin 0.4 mg capsule 0.4 mg PO DAILY cap 09/21/19 11/20/21 11/20/21 clopidogrel 75 mg tablet 75 mg PO QAM 05/27/20 11/20/21 11/20/21 esomeprazole magnesium 20 mg 20 mg PO DAILY 05/27/20 11/20/21 10/06/21 capsule,delayed release (Nexium) bee pollen 550 mg capsule 550 mg PO DAILY 11/16/20 11/20/21 11/20/21 lidocaine 5 % topical patch 1 patch TOP DAILY PRN #15 ea 12/12/20 11/20/21 Unknown acetaminophen 650 mg 650 mg PO Q8H PRN 12/26/20 11/20/21 Unknown tablet,extended release gabapentin 600 mg tablet 600 mg PO TID 90 Days #270 tab 08/12/21 11/20/21 10/06/21 08:00 finasteride 5 mg tablet 5 mg PO DAILY 08/20/21 11/20/21 10/06/21 mecobalamin (vitamin B12) 1,000 1,000 mcg SUBLINGUAL DAILY 08/20/21 11/20/21 11/20/21 mcg disintegrating tablet,sublingual diclofenac sodium 1 % topical gel 4 g TOPICAL QID PRN 10/06/21 11/20/21 Unknown lamotrigine 300 mg tablet,extended 300 mg PO .DAILY AT 1500 10/06/21 11/20/21 10/05/21 release 24 hr melatonin 10 mg capsule 10 mg PO HS cap 10/29/21 11/20/21 11/19/21 ciprofloxacin HCl 250 mg tablet 250 mg PO BID 14 Days #28 tab 11/17/21 11/20/21 11/20/21 coenzyme Q10 100 mg capsule 100 mg PO DAILY 11/20/21 11/20/21 11/20/21 (CoQ-10) diphenhydramine 25 1 tab PO HS PRN 11/20/21 11/20/21 11/19/21 mg-acetaminophen 500 mg tablet doxepin 25 mg capsule 50 mg PO HS 11/20/21 11/20/21 11/19/21 nystatin 100,000 unit/gram topical 1 applic TOPICAL BID PRN 11/20/21 11/20/21 11/20/21 powder tramadol 50 mg tablet 50 mg PO Q6 PRN 11/20/21 11/20/21 Unknown Active Medications Generic Name Dose Route Start Last Admin Trade Name Freq PRN Reason Stop Dose Admin Hydrocodone Bitart/Acetaminophen 1 tab 11/29/21 19:02 12/02/21 11:49 Hydrocodone/Acetamophen 5/325mg Tab PO 12/13/21 19:01 1 tab Q6H PRN Administration Pain Apixaban 2.5 mg 11/27/21 21:00 12/02/21 08:54 Apixaban 2.5 Mg Tab PO 12/27/21 20:59 2.5 mg BID CHIP Administration Clopidogrel Bisulfate 75 mg 11/21/21 09:00 12/02/21 10:11 Clopidogrel Bisulfate 75 Mg Tab PO 12/21/21 08:59 75 mg QAM CHIP Administration Colchicine 0.3 mg 12/01/21 12:00 12/02/21 08:54 Colchicine 0.6 Mg Tab PO 12/31/21 11:59 0.3 mg QAM CHIP Administration Cyanocobalamin 1,000 mcg 11/21/21 09:00 12/02/21 08:55 Cyanocobalamin 500 Mcg Tablet (Vitamin B-12) PO 12/21/21 08:59 1,000 mcg DAILY CHIP Administration Diclofenac Sodium 4 gm 11/30/21 21:00 12/02/21 16:36 Diclofenac Sod 1% Gel 100 Gm Tube EXT 12/30/21 20:59 4 gm QID CHIP Administration Doxepin HCl 50 mg 11/21/21 21:00 12/01/21 20:39 Doxepin Hcl 50 Mg Capsule PO 12/21/21 20:59 50 mg HS CHIP Administration Finasteride 5 mg 11/21/21 09:00 12/02/21 08:54 Finasteride 5 Mg Tab PO 12/21/21 08:59 5 mg DAILY CHIP Administration Gabapentin 600 mg 11/21/21 09:00 12/02/21 13:55 Gabapentin 600 Mg Tab PO 12/21/21 08:59 600 mg TID CHIP Administration Vancomycin HCl 1,500 mg/ 530 mls @ 200 mls/hr 11/21/21 12:00 12/02/21 15:10 Sodium Chloride IV 01/02/22 11:59 Infused Q24H CHIP Infusion Ciprofloxacin 400 mg in 200 mls @ 100 mls/hr 11/21/21 21:00 12/02/21 11:50 Cipro / D5w IV 01/02/22 20:59 Infused Q12H CHIP Infusion Protocol Lactobacillus Acidophilus 2 cap 11/29/21 09:00 12/02/21 08:53 Advanced Probiotic 1250 Mg Capsule PO 12/29/21 08:59 2 cap DAILY CHIP Administration Lamotrigine 300 mg 11/21/21 15:00 12/02/21 16:36 Lamotrigine 100 Mg Tab PO 12/21/21 14:59 300 mg DAILY@1500 CHIP Administration Multi-Ingredient Cream 1 appln 11/26/21 20:06 12/01/21 09:16 Artificial Tears Op Oint 3.5 Gm Tube OP 12/26/21 20:05 1 appln Q4H PRN Administration irritation of eye Multivitamins 1 tab 11/21/21 09:00 12/02/21 08:55 Multivitamin Tab PO 12/21/21 08:59 1 tab DAILY CHIP Administration Nystatin 1 appln 11/21/21 13:30 12/02/21 08:52 Nystatin Powder 15gm Btl EXT 12/21/21 13:29 1 appln DAILY CHIP Administration Ondansetron HCl 4 mg 12/02/21 12:33 12/02/21 12:39 Ondansetron Inj 2 Mg/Ml 2 Ml Vial IV 01/01/22 12:32 4 mg Q6H PRN Administration Nausea And Vomiting Pantoprazole Sodium 40 mg 11/21/21 09:00 12/02/21 08:56 Pantoprazole 40 Mg Tab PO 12/21/21 08:59 40 mg DAILY CHIP Administration Polyethylene Glycol 17 gm 11/30/21 21:00 12/02/21 08:52 Polyethylene (Miralax) 17 Gm Pack PO 12/30/21 20:59 17 gm BID CHIP Administration Rosuvastatin Calcium 20 mg 11/21/21 09:00 12/02/21 08:55 Rosuvastatin Calcium 20 Mg Tab PO 12/21/21 08:59 20 mg QAM CHIP Administration Senna/Docusate Sodium 1 tab 11/25/21 10:45 12/02/21 09:37 Docusate Sodium/Senna 50/8.6mg Tab PO 12/25/21 10:44 1 tab QAM CHIP Administration Tamsulosin HCl 0.4 mg 11/21/21 09:00 12/02/21 08:54 Tamsulosin Hcl 0.4 Mg Cap PO 12/21/21 08:59 0.4 mg DAILY CHIP Administration Umeclidinium [place] 1 puffs 11/21/21 09:00 12/02/21 08:52 Umeclidinium [place] 62.5mcg/Blister 7 Puffs/Inhaler INH 12/21/21 08:59 1 puffs DAILY CHIP Administration Past Medical History Medical History Abscess of forearm, right Absent foot pulse Acid reflux disease Acute kidney injury Acute metabolic encephalopathy Aneurysm of abdominal aorta Aneurysm of right internal iliac artery Aspiration pneumonia Bilateral renal cysts Carotid artery narrowing Cellulitis of forearm, right Chronic obstructive pulmonary disease COPD (chronic obstructive pulmonary disease) will continue home meds. GERD (gastroesophageal reflux disease) Hyponatremia Incarcerated right inguinal hernia Metabolic encephalopathy Pneumonia Sensorineural hearing loss Sepsis Trigeminal neuralgia Past Family History Family History Mother Myocardial infarction Other Family history non-contributory Denies family history of Ovarian cancer Prostate cancer Breast cancer Colorectal cancer Past Surgical History Surgical History H/O fasciotomy H/O tooth extraction History of inguinal hernia repair Hx of shoulder surgery S/P debridement 11/25/20 Dr. Delvis Gale- Right Forearm Debridement of Necrotic Abscess(Right) S/P vascular surgery 06/26/19 right superficial femoral artery cutdown, RLE angiogram, right popliteal artery aneurysm excision with viabahn stent graft- Dr. Ryder Roman Status post ear surgery 11/26/21: Left fem tibial bypass surgery at [facility]. Dr. Gray. Arterial line. GETA. 7.5 ETT. No reported anesthesia complications. Social History Smoking Status: Unknown if ever smoked tobacco type: cigarettes Do You Dip or Chew Tobacco: No Hx Alcohol Use: Yes Alcohol type: hard liquor alcohol intake frequency: holidays/special occasions only Hx Substance Use: No substance use type: does not use Physical Exam Vital Signs Last Vital Signs Temp 36.4 C L 12/02/21 15:16 Pulse 72 12/02/21 15:16 Resp 18 12/02/21 15:16 BP 127/75 12/02/21 15:16 Pulse Ox 95 12/02/21 16:00 Testing Laboratory Results 11/29/21 05:32 12/02/21 06:41 PT 10.1 Seconds (9.0-12.0) 11/20/21 15:40 INR 1.0 (0.9-1.1) 11/20/21 15:40 APTT 33.6 Seconds (21.0-31.0) H 11/27/21 04:45 Urine Color Yellow 11/26/21 05:45 Urine Appearance Clear (Clear) 11/26/21 05:45 Urine pH 7.5 (4.5-7.5) 11/26/21 05:45 Ur Specific [place] 1.007 (1.000-1.030) 11/26/21 05:45 Urine Protein Negative (Negative) 11/26/21 05:45 Urine Glucose (UA) Negative (Negative) 11/26/21 05:45 Urine Ketones Negative (Negative) 11/26/21 05:45 Urine Nitrite Negative (Negative) 11/26/21 05:45 Ur Leukocyte Esterase Negative (Negative) 11/26/21 05:45 Blood Type B Positive 11/25/21 07:17 Antibody Screen NEGATIVE 11/25/21 07:17 11/20/21 15:40 Aerobic Blood Culture - Final Blood Micrococcus species Anaerobic Blood Culture - Final No growth in Anaerobic bottle after 5 days. 11/20/21 19:32 Aerobic Blood Culture - Final Blood No growth in Aerobic bottle after 5 days. Anaerobic Blood Culture - Final Electrocardiogram Date: 11/28/21 DICTATED BY:Andrew Tadeo, DO Test Reason : Blood Pressure : / mmHG Vent. Rate : 079 BPM Atrial Rate : 079 BPM P-R Int : 152 ms QRS Dur : 094 ms QT Int : 398 ms P-R-T Axes : 056 057 010 degrees QTc Int : 456 ms Normal sinus rhythm Normal ECG When compared with ECG of 06-OCT-2021 12:38, No significant change was found Confirmed by Andrew Tadeo ([id number]) on 11/29/2021 9:45:48 AM
--- NOTE | 2021-12-02 19:07 | Hospitalist Progress Note ---
Date of Service December 02, 2021 Assessment & Plan (1) Acute osteomyelitis of left foot: Plan: Left Foot MRI on 11/19 -- "Findings suggestive of acute osteomyelitis within the head of the proximal phalanx of the left third toe and the middle phalanx of the left fourth toe. Mild marrow edema within the middle phalanx of the left third toe and the proximal phalanx of the left fourth toe suggestive of osteitis: Wound culture from [facility] wound clinic 11/13/2021 positive for Pseudomonas, Enterococcus. Blood cultures from 11/20 with 10/14 with Micrococcus - likely contaminant. Continue IV vancomycin for enterococcus & ciprofloxacin for pseudomonas. To have amputation of 3rd/4th toes with Dr Gray tomorrow. NPO after MN tonight. I corresponded with Dr Gray - plavix/eliquis do not need to be held for tomorrow. (2) Gangrene of toe of left foot: Plan: 3th toe - will need amputation. Antibiotics in meantime as in #1 above. (3) Left ankle pain: Plan: x-rays unremarkable. uric acid level is high (nearly 7). could be gouty joint. cont colchicine 0.3mg daily for 2-3 more days then stop. (4) Acute metabolic encephalopathy: Plan: likely 2nd to #1, #2. cannot rule out hospital psychosis. avoid benzos, etc. I spoke with the pt's son and he reports his father has been dx with dementia in the past. (5) PAD (peripheral artery disease): Plan: With ischemia to left foot and resulting L 3th toe gangrene - s/p left Femoral Posterior Tibial reverse saphenous vein bypass with Dr. Gray on 11/26/21. Also with History of AAA, carotid artery stenosis, right internal iliac aneurysm, popliteal aneurysm. Continue apixaban 2.5 mg p.o. twice daily. Continue clopidogrel 75 mg p.o. daily. Continue crestor 20mg daily. (6) Mood disorder: Plan: continue doxepin (7) COPD (chronic obstructive pulmonary disease): Plan: stable, no flare continue Incruse Ellipta crackles in bases likely atelectasis incentive spirometry (8) Hyperlipidemia: Plan: Continue rosuvastatin (9) BPH loc w urin obs/LUTS: Plan: Continue Flomax & finasteride Han is in place (10) Tremor: Plan: Continue Lamictal (11) Hyponatremia: Plan: Na 133 today & stable/acceptable bmp am (12) DVT prophylaxis: Plan: eliquis 2.5mg BID Plan: Referrals made to SNFs for post-discharge. Cont PT/OT. Constipation - cont miralax. Nausea - zofran prn. Benign abdomen on exam today. updated pt's son by phone yesterday evening. Admission and Anticipated Discharge Date Admission Date: November 20, 2021 Subjective tele wnl overnight patient sitting in chair for the first time in 10+ days when I entered the room he immediately told me he wanted to get back into bed he had c/o nausea earlier in the day - but by the time of my assessment it had resolved with zofran he c/o left leg and left ankle pain only eating fine he remains mildly confused but did remember "I'm having surgery tomorrow" Review of Systems Review of Systems: gen - no fevers; +fatigue cv - no cp pulm - no cough, no dyspnea GI - no vomiting but did have nausea; no abd pain Physical Exam Physical Exam: gen - sitting in chair, watching sports on TV neck - no JVD mouth - no thrush heart - RRR, s1 s2, no murmur lungs - CTA b/l except mild dry rales bases abd - soft NT BS+ ND; no HSM ext - b/l legs and feet warm, pulses 2+ left foot, 1-2+ right foot; left leg edema about 1-2+ today musculo - left ankle - still swollen, still mildly tender to palpation skin - left leg dressings intact and clean; richard clean; entire left 3th toe dry gangrene/black in appearance; there is purulent drainage exuding from the webspace between digits 3/4; no cap refill 3rd toe; cap refill 4th toe sluggish psych - a/o x 2 only Results & Data Results & Data ([facility]) Vital Signs (Past 12 Hours) Vital Signs Temp Pulse Pulse Resp BP Pulse Ox Pulse Ox 12/02/21 16:00 95 12/02/21 15:16 36.4 C L 72 18 127/75 12/02/21 14:19 74 12/02/21 10:42 36.4 C L 72 16 125/75 94 12/02/21 08:00 95 PG Care Time/CCT Total # of Minutes Spent Total Time Spent with Patient: Total time spent is greater than 50% in coordination of care (as documented) at patient's floor/unit and/or counseling patient: Coding Level of Care Code 81673 Subseq Hosp Care Lvl 2 Diagnoses Acute osteomyelitis of left foot M86.172 Gangrene of toe of left foot I96 Left ankle pain M25.572 Acute metabolic encephalopathy G93.41 PAD (peripheral artery disease) I73.9 Mood disorder F39 COPD (chronic obstructive pulmonary disease) J44.9 Hyperlipidemia E78.5 BPH loc w urin obs/LUTS N40.1 Tremor R25.1 Hyponatremia E87.1 DVT prophylaxis Z29.9
[2021-12-02] MEDS: DOXEPIN HCL 50 MG CAPSULE PO SCH (20:50)
[2021-12-03 07:36] LABS: Eosinophils # (auto) 0.09 K/uL (0-0.5); Eosinophils % (auto) 1.4 %; Hematocrit (blood only) 31.7 % (42-52); Hemoglobin 10.5 g/dL (14.0-18.0); Immature Granulocytes # (auto) 0.03 K/uL (0.00-0.02); Immature Granulocytes % (auto) 0.5 %; Lymphocytes # (auto) 0.94 K/uL (1.2-3.4); Lymphocytes % (auto) 14.2 %; Mean Corpuscular Hemoglobin 29.7 pg (25-34); Mean Corpuscular Hgb Conc 33.1 g/dL (32-36); Mean Corpuscular Volume 89.8 fL (80-100); Monocytes # (auto) 0.58 K/uL (0.11-0.59); Monocytes % (auto) 8.8 %; Neutrophils # (auto) 4.98 K/uL (1.4-6.5); Neutrophils % (auto) 75.1 %; Platelet Count 214 K/uL (130-400); RDW Coefficient of Variation 13.9 % (11.5-14.5); RDW Standard Deviation 45.9 fL (36.4-46.3); Red Blood Count 3.53 M/uL (4.7-6.1); White Blood Count 6.62 K/uL (4.8-10.8)
[2021-12-03] MEDS: UMECLIDINIUM BROMIDE 62.5MCG/BLISTER 7 PUFFS/INHALER INH SCH (07:59)
[2021-12-03 08:00] LABS: Creatinine Clr Calc Pharmacy 47.3 ml/min; Est GFR (African American) 58.5 ml/min; Est GFR (Non-African American) 50.5 ml/min
[2021-12-03] MEDS: DICLOFENAC SOD 1% GEL 100 GM TUBE EXT SCH ×4 (08:00→21:45)
[2021-12-03] MEDS: GABAPENTIN 600 MG TAB PO SCH ×3 (08:00→21:44)
[2021-12-03] MEDS: MULTIVITAMIN TAB PO SCH (08:00)
[2021-12-03 08:01] LABS: BUN Creatinine Ratio 20.8 (10-20); Calcium 8.8 mg/dl (8.5-10.1); Creatinine Clr Calc Pharmacy 48.1 ml/min; Est GFR (African American) 59.6 ml/min; Est GFR (Non-African American) 51.4 ml/min; Potassium 4.1 mmol/L (3.5-5.1)
[2021-12-03] MEDS: FINASTERIDE 5 MG TAB PO SCH (08:01)
[2021-12-03] MEDS: TAMSULOSIN HCL 0.4 MG CAP PO SCH (08:01)
[2021-12-03] MEDS: CLOPIDOGREL BISULFATE 75 MG TAB PO SCH (08:01)
[2021-12-03] MEDS: CYANOCOBALAMIN (B-12) 500 MCG TABLET PO SCH (08:01)
[2021-12-03] MEDS: COLCHICINE 0.6 MG TAB PO SCH (08:01)
[2021-12-03] MEDS: ROSUVASTATIN CALCIUM 20 MG TAB PO SCH (08:01)
[2021-12-03] MEDS: PANTOprazole 40 MG TAB PO SCH (08:01)
[2021-12-03] MEDS: ADVANCED PROBIOTIC 1250 MG CAPSULE PO SCH (08:02)
[2021-12-03] MEDS: CIPROFLOXACIN / D5W 400 MG/200 ML BAG IV SCH ×2 (08:08→21:50)
[2021-12-03] MEDS: APIXABAN 2.5 MG TAB PO SCH ×2 (08:08→21:44)
[2021-12-03] MEDS: NYSTATIN POWDER 15GM BTL EXT SCH (08:09)
[2021-12-03] MEDS: POLYETHYLENE (MIRALAX) 17 GM PACK PO SCH ×2 (08:09→21:45)
[2021-12-03] MEDS: DOCUSATE SODIUM/SENNA 50/8.6MG TAB PO SCH (08:09)
[2021-12-03] MEDS: VANCOMYCIN HCL 1,500 MG in SODIUM CHLORIDE 0.9% 500 ML IV SCH (11:33)
[2021-12-03] MEDS ORDERED: fentaNYL citrate 100 MCG/2 ML VIAL ONE (12:14)
--- NOTE | 2021-12-03 13:00 | History & Physical Bridge Note ---
Date of Service December 03, 2021 History & Physical Bridge Note Patient for amputation left 3rd and 4th toes. I have discussed the risks options and benefits of the procedure with the patient. The patient understands the risks options and benefits and agrees to the procedure. I have examined the patient, reviewed the History & Physical and in the interval since the performance of the History & Physical I have noted the following changes of clinical significance: no changes noted
[2021-12-03] MEDS ORDERED: ATROPINE SULFATE 0.1 MG/ML 10ML SYR IV PRN (13:11)
[2021-12-03] MEDS ORDERED: ONDANSETRON INJ 2 MG/ML 2 ML VIAL IV PRN (13:11)
[2021-12-03] MEDS ORDERED: HYDROmorphone INJ 1 MG/ML SYRINGE IV PRN (13:11)
[2021-12-03] MEDS ORDERED: EPINEPHrine INJ 1 MG/ML AMP ONE (13:29)
[2021-12-03] MEDS ORDERED: LIDOCAINE 1% LOCAL 20 ML VIAL ONE (13:29)
[2021-12-03] MEDS ORDERED: BUPIVACAINE 0.5 % 5 MG/1 ML MPF 30ML VIAL ONE (13:29)
[2021-12-03] MEDS ORDERED: ONDANSETRON INJ 2 MG/ML 2 ML VIAL ONE (13:59)
[2021-12-03] MEDS ORDERED: LIDOCAINE 2% 2 ML VIAL/AMP(20MG/ML) INFIL ONE (13:59)
[2021-12-03] MEDS ORDERED: PROPOFOL IV EMULSION 10 MG/ML 20 ML VIAL IV ONE (13:59)
--- NOTE | 2021-12-03 14:16 | Operative Report ---
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 Post-Op Diagnosis: Gangrene nad osteromylitis of 3 and 4th toes I identified the patient and participated in the time-out.: Yes Procedure Operation Date: 11/24/21 08:00 Actual Procedures p Left Lower Extermity Arteriogram, mechanical closure of right femoral artery, moderate sedation [id number] - Jamel Gray MD Operation Date: 11/26/21 12:50 Actual Procedures p Left Femoral Posterior Tibial reverse saphenous vein Bypass(Left) - Jamel Gray MD Operation Date: 12/03/21 13:10 Actual Procedures p Left Foot Transmetatarsal Amputation 4th and 3rd Toe(Left) - Jamel Gray MD Surgeon Jamel Gray MD Bridges [employer] Buildings Supervisor SANCHEZ Godinez Estimated Blood Loss 10 Findings Consistent with Post-Op Diagnosis Specimens 3rd and 4th toes left foot Anesthesia Type General Complications none Disposition Accompanied Patient To Recovery: No Disposition: Recovery Room Indications This is a 86-year-old gentleman with gangrene of the left fourth and third toes. He underwent revascularization of the left lower extremity. He is now brought to the operating for amputation of the third and fourth toes. I have discussed the risks options and benefits of the procedure with the patient. The patient understands the risks options and benefits and agrees to the procedure. Description of Procedure The patient was taken the operating room placed supine position. The foot was blocked preoperatively. The foot was then prepped and draped in a sterile manner. Patient was identified and a timeout was performed. Incision was made along the outline of the gangrenous changes. This is carried down to the metatarsal areas of the third and fourth toe. The metatarsal in the midportion were exposed. Periosteal elevator was used to raise the periosteum. The metatarsals were transected at that level. Metatarsal and the third and fourth toes were removed. All necrotic tissue was debrided. Remaining tissues look good with good perfusion. Wound was packed open with Betadine soaked 4 x 4's Kerlix and Alvaro wrap.The patient left the operation room in satisfactory condition and tolerated the procedure well. All needle and sponge counts were correct at the end of the procedure. Rashmi Workman Pac assisted due to lack of resident availability and was necessary for positioning, draping, retraction, wound closure deep layers, subcutaneous tissue, and skin closure and was necessary for assisting with the case. I attest to the content of the Intraoperative Record and any orders documented therein. Any exceptions are noted below.
--- NOTE | 2021-12-03 14:17 | Post Operative Brief Note ---
Immediate Post Op Note v1 Date of Surgery December 03, 2021 Pre & Post Diagnosis Operation Date: 11/24/21 08:00 Pre-Op Diagnosis: left popliteal artery occlusion, gangrene of toes Post-Op Diagnosis: left popliteal artery occlusion, gangrene of toes Operation Date: 11/26/21 12:50 Pre-Op Diagnosis: gangrene of left toes and severe limb ischemia Post-Op Diagnosis: gangrene of left toes and severe limb ischemia Operation Date: 12/03/21 13:10 Pre-Op Diagnosis: Gangrene nad osteromylitis of 3 and 4th toes Post-Op Diagnosis: Gangrene nad osteromylitis of 3 and 4th toes I identified the patient and participated in the time-out.: Yes Procedure Operation Date: 11/24/21 08:00 Actual Procedures p Left Lower Extermity Arteriogram, mechanical closure of right femoral artery, moderate sedation [id number] - Jamel Gray MD Operation Date: 11/26/21 12:50 Actual Procedures p Left Femoral Posterior Tibial reverse saphenous vein Bypass(Left) - Jamel Gray MD Operation Date: 12/03/21 13:10 Actual Procedures p Left Foot Transmetatarsal Amputation 4th and 3rd Toe(Left) - Jamel Gray MD Surgeon Jamel Gray MD Two Needle Machine Operator Herbert,PAC Estimated Blood Loss 10 Findings Consistent with Post-Op Diagnosis Drains Mendez Catheter (arrived in operating room with mendez catheter intact) Anesthesia Type General Complications none Disposition Accompanied Patient To Recovery: No Disposition: Recovery Room
--- NOTE | 2021-12-03 15:22 | Anesthesiology Progress Note ---
Date of Service December 03, 2021 Anesthesia Post Procedure Vital Signs Vital Signs: Temp Pulse Pulse Pulse Resp BP BP 12/03/21 14:45 36.5 C 81 26 H 139/64 12/03/21 14:35 82 23 140/58 L 12/03/21 14:25 82 24 131/69 12/03/21 14:18 36.5 C 83 13 137/68 12/03/21 12:43 36.8 C 71 18 145/80 H 12/03/21 11:27 36.6 C 77 18 119/58 L 12/03/21 07:38 73 12/03/21 07:30 36.8 C 78 18 107/69 12/03/21 04:16 36.8 C 75 20 131/69 12/02/21 22:57 37 C 73 20 102/67 12/02/21 22:30 79 12/02/21 19:59 36.5 C 85 18 102/67 12/02/21 19:00 36.6 C 84 20 100/65 12/02/21 16:00 Pulse Ox Pulse Ox 12/03/21 14:45 100 12/03/21 14:35 94 12/03/21 14:25 100 12/03/21 14:18 100 12/03/21 12:43 12/03/21 11:27 94 12/03/21 07:38 12/03/21 07:30 94 12/03/21 04:16 93 12/02/21 22:57 100 12/02/21 22:30 12/02/21 19:59 95 12/02/21 19:00 100 12/02/21 16:00 95 Pain Intensity Left Foot: Pain Intensity: 3 Right Shoulder: Pain Intensity: 3 Transfer of Care Handoff Completed per policy Notes Mental Status: alert / awake / arousable Patient Amnestic to Procedure: Yes Nausea / Vomiting: adequately controlled Pain: adequately controlled Airway Patency, RR, SpO2: stable & adequate BP & HR: stable & adequate Hydration State: stable & adequate Anesthetic Complications: no major complications apparent
[2021-12-03] MEDS: lamoTRIgine 100 MG TAB PO SCH (16:08)
[2021-12-03] MEDS: HYDROCODONE/ACETAMOPHEN 5/325MG TAB PO PRN (18:23)
--- NOTE | 2021-12-03 19:41 | Hospitalist Progress Note ---
Date of Service December 03, 2021 Assessment & Plan (1) Gangrene of toe of left foot: Plan: 3rd toe - s/p amputation today by Dr Gray. 4th toe also amputated due to severe osteomyelitis. appreciate Dr Gray's assistance. (2) Acute osteomyelitis of left foot: Plan: Left Foot MRI on 11/19 -- "Findings suggestive of acute osteomyelitis within the head of the proximal phalanx of the left third toe and the middle phalanx of the left fourth toe. Mild marrow edema within the middle phalanx of the left third toe and the proximal phalanx of the left fourth toe suggestive of osteitis: Wound culture 11/13/2021 with Pseudomonas, Enterococcus. Continue IV vancomycin for enterococcus & ciprofloxacin for pseudomonas. Now that amputation of both toes has been done I suspect we can stop IV abx therapy soon. He did not have much in the way of mid-foot cellulitis or infection. Could consider a few days of oral Rx then stop antibiotics. (3) Left ankle pain: Plan: x-rays unremarkable. uric acid level is high (nearly 7). could be gouty joint. cont colchicine 0.3mg daily for 2-3 more days then stop. (4) Acute metabolic encephalopathy: Plan: likely 2nd to #1, #2. cannot rule out hospital psychosis. avoid benzos, etc. I spoke with the pt's son and he reports his father has been dx with dementia in the past. suspect that tonight will be challenging from mental status due to pain, anesthesia for his surgery today, etc will order haldol 0.5mg HS prn severe agitation. (5) PAD (peripheral artery disease): Plan: With ischemia to left foot and resulting L 3th toe gangrene - s/p left Femoral Posterior Tibial reverse saphenous vein bypass with Dr. Gray on 11/26/21. Now s/p 3/4 toe amputations, left foot, by Dr Gray today. Also with History of AAA, carotid artery stenosis, right internal iliac aneurysm, popliteal aneurysm. Continue apixaban 2.5 mg p.o. twice daily. Continue clopidogrel 75 mg p.o. daily. Continue crestor 20mg daily. (6) Mood disorder: Plan: continue doxepin (7) COPD (chronic obstructive pulmonary disease): Plan: stable, no flare continue Incruse Ellipta crackles in bases likely atelectasis incentive spirometry (8) Hyperlipidemia: Plan: Continue rosuvastatin (9) BPH loc w urin obs/LUTS: Plan: Continue Flomax & finasteride Han is in place (10) Tremor: Plan: Continue Lamictal (11) Hyponatremia: Plan: resolved (12) DVT prophylaxis: Plan: eliquis 2.5mg BID Plan: Referrals made to SNFs for post-discharge. Cont PT/OT. Constipation - cont miralax. Nausea - zofran prn. updated pt's son by phone this pm - told him surgery went well, etc. Admission and Anticipated Discharge Date Admission Date: November 20, 2021 Subjective saw patient post-op from his left foot 3/4 toes amp he was very confused he was trying to describe his pain, but unable to really relay what he was feeling but he appeared uncomfortable (and was pointing to his left foot) unable to elicit other ROS or history due to confusion Review of Systems Review of Systems: Unobtainable due to cognitive status Physical Exam Physical Exam: gen - uncomfortable, very confused neck - no JVD mouth - MM dry heart - RRR, s1 s2, no murmur lungs - CTA b/l except mild dry rales bases abd - soft NT BS+ ND; no HSM ext - left foot wrapped in dressings, some of which is blood soaked; toes 3/4 are now absent; right foot pulses 2+, no edema psych - very confused, oriented to person only Results & Data Results & Data ([facility]) Vital Signs (Past 12 Hours) Vital Signs Temp Pulse Pulse Pulse Resp BP Pulse Ox 12/03/21 16:00 36.8 C 80 20 102/65 94 12/03/21 15:38 83 12/03/21 15:30 36.5 C 80 18 108/61 91 12/03/21 14:45 36.5 C 81 26 H 139/64 100 12/03/21 14:35 82 23 140/58 L 94 12/03/21 14:25 82 24 131/69 100 12/03/21 14:18 36.5 C 83 13 137/68 100 12/03/21 12:43 36.8 C 71 18 145/80 H 12/03/21 11:27 36.6 C 77 18 119/58 L 94 Laboratory Results Laboratory Results - last 24 hr 12/03/21 12/03/21 12/03/21 07:23 07:23 07:23 WBC 6.62 RBC 3.53 L Hgb 10.5 L Hct 31.7 L MCV 89.8 MCH 29.7 MCHC 33.1 RDW Std Deviation 45.9 RDW Coeff of Saturnino 13.9 Plt Count 214 MPV 9.0 Immature Gran % (Auto) 0.5 Neut % (Auto) 75.1 Lymph % (Auto) 14.2 [place] % (Auto) 8.8 Eos % (Auto) 1.4 Baso % (Auto) 0.0 Neut # (Auto) 4.98 Lymph # (Auto) 0.94 L [place] # (Auto) 0.58 Eos # (Auto) 0.09 Baso # (Auto) 0.00 Immature Gran # (Auto) 0.03 H Sodium 136 Potassium 4.1 Chloride 106 Carbon Dioxide 23 Anion Gap 7 BUN 26 H Creatinine 1.27 1.25 Est Cr Clr Drug Dosing 47.3 48.1 Est GFR ( Amer) 58.5 59.6 Est GFR (Non-Af Amer) 50.5 51.4 BUN/Creatinine Ratio 20.8 H Glucose 96 Calcium 8.8 PG Care Time/CCT Total # of Minutes Spent Total Time Spent with Patient: Total time spent is greater than 50% in coordination of care (as documented) at patient's floor/unit and/or counseling patient: Coding Level of Care Code 08876 Subseq Hosp Care Lvl 2 Diagnoses Acute osteomyelitis of left foot M86.172 Gangrene of toe of left foot I96 Left ankle pain M25.572 Acute metabolic encephalopathy G93.41 PAD (peripheral artery disease) I73.9 Mood disorder F39 COPD (chronic obstructive pulmonary disease) J44.9 Hyperlipidemia E78.5 BPH loc w urin obs/LUTS N40.1 Tremor R25.1 Hyponatremia E87.1 DVT prophylaxis Z29.9
[2021-12-03] MEDS: MoRPHine SULFATE 2 MG/ML CARP IV PRN (20:07)
[2021-12-03] MEDS ORDERED: haloperidoL 0.5 MG TAB PO PRN (21:00)
[2021-12-03] MEDS: DOXEPIN HCL 50 MG CAPSULE PO SCH (21:44)
[2021-12-03] MEDS ORDERED: MoRPHine SULFATE 2 MG/ML CARP IV STA (23:59)
[2021-12-04] MEDS: HYDROCODONE/ACETAMOPHEN 5/325MG TAB PO PRN (02:01)
[2021-12-04 06:00] LABS: Hemoglobin 9.4 g/dL (14.0-18.0); Mean Corpuscular Hemoglobin 29.2 pg (25-34); Mean Corpuscular Hgb Conc 32.4 g/dL (32-36); Mean Corpuscular Volume 90.1 fL (80-100); Platelet Count 216 K/uL (130-400); RDW Coefficient of Variation 13.8 % (11.5-14.5); RDW Standard Deviation 45.8 fL (36.4-46.3); Red Blood Count 3.22 M/uL (4.7-6.1); White Blood Count 6.67 K/uL (4.8-10.8)
[2021-12-04 06:23] LABS: BUN Creatinine Ratio 20.7 (10-20); Calcium 8.8 mg/dl (8.5-10.1); Creatinine Clr Calc Pharmacy 39.6 ml/min; Est GFR (Non-African American) 44.9 ml/min; Potassium 4.6 mmol/L (3.5-5.1)
[2021-12-04] MEDS: GABAPENTIN 600 MG TAB PO SCH ×2 (07:32→11:23)
[2021-12-04] MEDS: APIXABAN 2.5 MG TAB PO SCH (07:32)
[2021-12-04] MEDS: ROSUVASTATIN CALCIUM 20 MG TAB PO SCH (07:32)
[2021-12-04] MEDS: CYANOCOBALAMIN (B-12) 500 MCG TABLET PO SCH (07:33)
[2021-12-04] MEDS: ADVANCED PROBIOTIC 1250 MG CAPSULE PO SCH (07:33)
[2021-12-04] MEDS: TAMSULOSIN HCL 0.4 MG CAP PO SCH (07:33)
[2021-12-04] MEDS: CLOPIDOGREL BISULFATE 75 MG TAB PO SCH (07:34)
[2021-12-04] MEDS: FINASTERIDE 5 MG TAB PO SCH (07:34)
[2021-12-04] MEDS: COLCHICINE 0.6 MG TAB PO SCH (07:34)
[2021-12-04] MEDS: MULTIVITAMIN TAB PO SCH (07:34)
[2021-12-04] MEDS: DICLOFENAC SOD 1% GEL 100 GM TUBE EXT SCH ×3 (07:35→15:27)
[2021-12-04] MEDS: PANTOprazole 40 MG TAB PO SCH (07:35)
[2021-12-04] MEDS: UMECLIDINIUM BROMIDE 62.5MCG/BLISTER 7 PUFFS/INHALER INH SCH (07:36)
[2021-12-04] MEDS: NYSTATIN POWDER 15GM BTL EXT SCH (07:37)
[2021-12-04] MEDS: POLYETHYLENE (MIRALAX) 17 GM PACK PO SCH (07:37)
[2021-12-04] MEDS: DOCUSATE SODIUM/SENNA 50/8.6MG TAB PO SCH (07:51)
[2021-12-04] MEDS: CIPROFLOXACIN / D5W 400 MG/200 ML BAG IV SCH (07:51)
[2021-12-04] MEDS ORDERED: LINEZOLID CONSULT ACTIVE PRN (08:23)
[2021-12-04] MEDS: MoRPHine SULFATE 2 MG/ML CARP IV PRN (08:41)
[2021-12-04] MEDS ORDERED: LINEZOLID 600 MG TAB PO SCH (09:00)
[2021-12-04] MEDS ORDERED: SODIUM CHLORIDE 0.9% 1000ML 500 ML IV ONE (10:27)
--- NOTE | 2021-12-04 13:34 | Surgery Progress Note ---
Date of Service December 04, 2021 Assessment & Plan (1) Amputated toe of left foot: Plan: Moderate amount of sanguinous drainage of left foot dressing. Will have dressing changed but will leave the packing in place. Admission and Anticipated Discharge Date Admission Date: November 20, 2021 Subjective Patient not oriented. Wants to sit up. Physical Exam Constitutional: + disheveled Respiratory: normal respiratory effort; no respiratory distress Cardiovascular: Rate/Rhythm: regular rate and regular rhythm Vessels: posterior tibial pulses present Musculoskeletal: no cyanosis or clubbing, extremities motor strength 5/5 Skin: + incision (Foot dressing with moderate amount of sanguinous draiage.) Neurologic: awake and + confused Results & Data ([facility]) Vital Signs (Past 12 Hours) Vital Signs Temp Pulse Pulse Pulse Resp BP BP 12/04/21 11:28 36.6 C 76 20 89/52 L 12/04/21 08:59 69/47 L 51/38 L 12/04/21 07:18 76 12/04/21 06:45 36.8 C 84 20 131/73 12/04/21 01:59 36.4 C L 82 18 119/66 Pulse Ox 12/04/21 11:28 96 12/04/21 08:59 12/04/21 07:18 12/04/21 06:45 92 12/04/21 01:59 92
[2021-12-04] MEDS: lamoTRIgine 100 MG TAB PO SCH (15:27)
[2021-12-04] MEDS ORDERED: PANTOPRAZOLE BOLUS/DRIP 1 EA IV STA (16:37)
[2021-12-04] MEDS ORDERED: PANTOprazole 80 MG in DEXTROSE 5% 100 ML IV ONE (16:45)
[2021-12-04] MEDS ORDERED: Standard Conc 16mcg/mL; 8mg in 500mL IV SCH (17:00)
[2021-12-04] MEDS ORDERED: PANTOprazole 40 MG in DEXTROSE 5% 100 ML IV SCH (17:00)
[2021-12-04 17:11] LABS: Hemoglobin 6.4 g/dL (14.0-18.0); Mean Corpuscular Hemoglobin 29.8 pg (25-34); Mean Platelet Volume 9.6 fL (7.4-10.4); Platelet Count 244 K/uL (130-400); RDW Coefficient of Variation 13.9 % (11.5-14.5); Red Blood Count 2.15 M/uL (4.7-6.1); White Blood Count 15.17 K/uL (4.8-10.8)
[2021-12-04 17:13] LABS: Base Excess VBG -15.8 mEq/L; Oxygen Saturation VBG 75.8 %; pH VBG 6.92 (7.36-7.41)
[2021-12-04 17:21] LABS: INR 1.2 (0.9-1.1); Prothrombin Time 12.3 Seconds (9.0-12.0)
--- NOTE | 2021-12-04 17:41 | Death Pronouncement Note ---
Date of Service December 04, 2021 Pronouncement Note Admission Date November 20, 2021 Date and Time of Date of : 12/04/21 Time of : 17:11 Preliminary Cause of (1) Hemorrhagic shock: Additional Data Confirmation of : no pulse, no respirations, no heart sounds and pupils fixed and dilated Pronouncement Performed By: Attending Physician Family: contacted Attending/PCP notified?: Yes Attending physician: Alfredo Gipson MD Was code activated?: No Autopsy requested?: No Coding Level of Care Code None Diagnoses Hemorrhagic shock R57.8
--- NOTE | 2021-12-04 17:41 | Communication Note ---
Date of Service: December 04, 2021 Events of this afternoon -- I was notified by the patient's nurse late this afternoon that the patient acutely had a large volume coffee-ground emesis. About the same time his HR on the monitor portia to >100, and his O2 sats went into the 70s necessitating use of an oxymask. He had had normal HR and normal O2 sats prior to this event. Last documented systolic BP was just shy of 100. Upon my arrival the patient was pale/ashen, unresponsive, and in shock with SBP now in the 60s. Verbal order given for NS bolus wide-open. Additional IV access was being worked on by staff members. BSG was >150. EKG showed NSR with no acute ST changes. First exam - gen - obtunded, pale/ashen, did not respond to pain/voice; the gown and bedsheets were soaked with a large mount of brown/coffee-ground vomitus mouth - brown/coffee-ground material around his lips neck - no obvious JVD heart - regular rhythm, s1 s2, systolic murmur present; rate about 100-110 lungs - diffuse course BS/rales right chest, CTA on left abd - soft, no apparent tenderness ext - cold, pulses not palpable, cyanotic; left foot dressings blood-soaked but no active oozing appreciated Labs were requested, and I asked for respiratory to place him on high-flow NC due to severe hypoxia (BIPAP deferred due to suspected aspiration and shock). Patient was a known DNR/DNI thus more aggressive respiratory measures were not taken (manual bagging, etc). IV team - due to his shock - could not find peripheral IV access. I asked for IO placement which the IV team successfully placed in the right proximal tibia on the first attempt. Good flush and return, and IV fluid bolus hooked up to this. Additional IV was ultimately placed in the left arm, and a 2nd NS bolus was hung. PPI drip was requested and hung for suspected upper GI bleed with resulting hemorrhagic shock. Patient's BP did NOT improve with 2 saline boluses flowing wide open. In fact, SBP dropped further to the 40s. Levophed requested from pharmacy and arrived; attached to IO in his right leg. Patient placed in mild amount of Trendelenburg as well. I asked for nursing to contact the ICU attending; Dr Ramirez indeed arrived at the bedside very quickly. I also asked nursing to contact the pt's son, Lalo Cai. Once he was on the phone I updated him with the events of the afternoon. He confirmed DNR/DNI status and that his father would not want aggressive measures beyond what we were giving. Despite all of the above measures the patient developed agonal breathing and bradycardia. Pulse was not obtainable and the patient ceased to breath at ~1711. A short time later I contacted Lalo Cai again and informed him that his father had . Lalo was with his mother and she was notified of Mr Cai's passing. I offered to contact a nurse intern/cooking teacher to come to the hospital to provide a blessing/prayer - family declined. Family also declined to come to the hospital to see Mr Cai before he was moved from his room. Labs ultimately returned with Hb of 6.4, down from 9.4 this am, c/w probable upper GI bleed with resulting hemorrhagic shock, severe lactic acidosis, and acute hypoxic/hypercarbic respiratory failure. Alfredo Gipson MD
[2021-12-04] MEDS ORDERED: SODIUM BICARB 8.4% INJ 50 MEQ/50 ML SYR IV ONE (18:36)
[2021-12-04] MEDS ORDERED: SODIUM CHLORIDE 0.9% 1000 ML BAG IV ONE (18:36)
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
[2021-12-04] MEDS ORDERED: CIPROFLOXACIN 500 MG TAB PO SCH (21:00)
[2021-12-05] MEDS ORDERED: VANCOMYCIN TROUGH ONE (11:30)
--- NOTE | 2021-12-05 11:57 | Electrocardiogram Report ---
Test Reason : Blood Pressure : / mmHG Vent. Rate : 105 BPM Atrial Rate : 105 BPM P-R Int : 234 ms QRS Dur : 102 ms QT Int : 328 ms P-R-T Axes : 012 008 012 degrees QTc Int : 433 ms Sinus tachycardia with 1st degree A-V block Possible Inferior infarct , age undetermined Poor R wave progression, consider anterior GA vs. lead placement vs. LVH Abnormal ECG When compared with ECG of 28-NOV-2021 23:46, KS interval has increased Borderline criteria for Inferior infarct are now Present Confirmed by Mendez Mcqueen ([id number]) on 12/05/2021 11:57:00 AM Referred By: REFERRED SELF Confirmed By:Todd Mcqueen
--- NOTE | 2021-12-23 10:01 | Operative Report ---
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 Post-Op Diagnosis: Gangrene nad osteromylitis of 3 and 4th toes I identified the patient and participated in the time-out.: Yes Procedure Operation Date: 11/24/21 08:00 Actual Procedures p Left Lower Extermity Arteriogram, mechanical closure of right femoral artery, moderate sedation [id number] - Jamel Gray MD Operation Date: 11/26/21 12:50 Actual Procedures p Left Femoral Posterior Tibial reverse saphenous vein Bypass(Left) - Jamel Gray MD Operation Date: 12/03/21 13:10 Actual Procedures p Left Foot Transmetatarsal Amputation 4th and 3rd Toe(Left) - Jamel Gray MD Surgeon Jamel Gray MD Packager Machine None Estimated Blood Loss 10 Findings Consistent with Post-Op Diagnosis Specimens None Anesthesia Type RN Sedation Complications none Disposition Accompanied Patient To Recovery: No Disposition: Recovery Room Indications This 86-year-old gentleman with gangrene of the left third and fourth toes. He was found to have occlusions on noninvasives of the arterial system of the left leg. Arteriography was recommended. I have discussed the risks options and benefits of the procedure with the patient. The patient understands the risks options and benefits and agrees to the procedure. Description of Procedure The patient was taken the angiogram suite and placed in supine position. The groins were prepped and draped in a sterile manner. A timeout was performed and the patient was identified. Local anesthetic was administered to the right groin. The common femoral artery was then punctured and a 5 Spanish sheath inserted. Using a rim catheter and 035 Glidewire the left iliac was cannulated in the right side. The rim cath was advanced down to the distal external iliac. Hand-injection was done prior to this showing that the common iliac external iliac and common femoral arteries are widely patent. Arteriography now done through the rim catheter showed the profunda and superficial femoral arteries to be patent. The superficial femoral artery was larger than normal in its entirety. It was occluded at the abductor hiatus. The popliteal artery was also occluded. Posterior tibial artery reconstituted in the upper third of the calf. The peroneal and anterior tibial arteries were occluded in their entirety. The rim catheter was removed. No intervention was planned at this time. Hand-injection through sheath showed the puncture to be in the common femoral artery. The Star closure device was used to close the puncture site in the right common femoral artery. Sterile dressings were applied to the puncture site. The patient left the operation room in satisfactory condition and tolerated the procedure well. All needle and sponge counts were correct at the end of the procedure. I attest to the content of the Intraoperative Record and any orders documented therein. Any exceptions are noted below.
--- NOTE | 2021-12-23 10:12 | Operative Report ---
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 Post-Op Diagnosis: Gangrene nad osteromylitis of 3 and 4th toes I identified the patient and participated in the time-out.: Yes Procedure Operation Date: 11/24/21 08:00 Actual Procedures p Left Lower Extermity Arteriogram, mechanical closure of right femoral artery, moderate sedation [id number] - Jamel Gray MD Operation Date: 11/26/21 12:50 Actual Procedures p Left Femoral Posterior Tibial reverse saphenous vein Bypass(Left) - Jamel Gray MD Operation Date: 12/03/21 13:10 Actual Procedures p Left Foot Transmetatarsal Amputation 4th and 3rd Toe(Left) - Jamel Gray MD Surgeon Jamel Gray MD Well Drill Operator Rotary Drill Ang WorkmanPAC Estimated Blood Loss 250 Findings Consistent with Post-Op Diagnosis Specimens none Anesthesia Type General Complications none Disposition Accompanied Patient To Recovery: No Disposition: Recovery Room Indications This is an 86-year-old gentleman with occluded left distal superficial femoral artery popliteal artery and severe popliteal artery occlusive disease. His only outflow was the posterior tibial artery from the upper third distally. He also has gangrene of the third and fourth toes of the left foot. Bypass was recommended using saphenous vein. Being that his superficial femoral artery is patent and with limited on the length of the vein it was recommended that we do the proximal anastomosis of the distal superficial femoral artery. I have discussed the risks options and benefits of the procedure with the patient. The patient understands the risks options and benefits and agrees to the procedure. Description of Procedure Patient was taken the operating placed supine position. After general anesthesia was accomplished the left leg was prepped draped in a sterile manner. The patient was identified and a timeout was performed. An incision was then made over the saphenous vein in the groin down to the knee. At that point the vein was small and could not be used any further. The saphenous vein was harvested in its entirety in the thigh. All side branches were ligated and divided. The incision was carried down medially in the distal thigh until the superficial femoral artery was identified distally. It was soft and on a fairly large size. Next the incision was made in the mid calf. This was carried down on the medial side until the posterior tibial artery was identified. It was fairly soft and usable for anastomosis. The saphenous vein was harvested was then brought to the operative field. A tunnel was then made from the lower incision up into the thigh. Saphenous vein was reversed and passed through the tunneler. The distal superficial femoral arteries then clamped proximal distally. Longitudinal arteriotomy was then made. The saphenous vein was beveled and an end-to-side anastomosis was then accomplished. This was done with 5-0 Prolene suture. Once this was completed the graft was flushed di stally. The bypass was then clamped just beyond the anastomosis. There is no kinking or twisting noted in the graft. The posterior tibial arteries then clamped proximally distally. A longitudinal arteriotomy was then performed. The saphenous vein was then trimmed and beveled appropriate fashion at the site anastomosis was accomplished using 6-0 Prolene suture again in the usual vascular fashion. Prior to completing the closure backbleeding and forward bleeding was allowed to occur. The final few sutures were placed and securely tied. Clamps were removed. Excellent flow was seen through the graft. There was a good posterior tibial artery signal with Doppler. Hemostasis was seen of the anastomosis. Wounds were then inspected. After adequate stasis was obtained the wounds were then closed in usual fashion using running 3-0 Vicryl suture for all subcutaneous layer and richard for the skin. Sterile dressings were applied.The patient left the operation room in satisfactory condition and tolerated the procedure well. All needle and sponge counts were correct at the end of the procedure. Rashmi Workman Pac assisted due to lack of resident availability and was necessary for positioning, draping, retraction, wound closure deep layers, subcutaneous tissue, and skin closure and was necessary for assisting with the case. I attest to the content of the Intraoperative Record and any orders documented therein. Any exceptions are noted below.
== END 2021-12-04 18:37 | disposition expired | DRG 503 ==
LOC: ED 14:41 → EDINP 23:16 → SUATTDRO 23:16 → 2W 11-21 01:22 → 1E 11-26 17:59 → 3E 11-28 15:54 → 2W 11-29 00:06
DX: I70.202 Unspecified atherosclerosis of native arteries of extremities, left leg; E87.1 Hypo-osmolality and hyponatremia; N40.1 Benign prostatic hyperplasia with lower urinary tract symptoms; F39 Unspecified mood [affective] disorder; I73.9 Peripheral vascular disease, unspecified; Z86.718 Personal history of other venous thrombosis and embolism; G93.41 Metabolic encephalopathy; K92.2 Gastrointestinal hemorrhage, unspecified; Z87.891 Personal history of nicotine dependence; E78.5 Hyperlipidemia, unspecified; K59.00 Constipation, unspecified; M86.172 Other acute osteomyelitis, left ankle and foot; J44.9 Chronic obstructive pulmonary disease, unspecified; M10.9 Gout, unspecified; Z66 Do not resuscitate; I71.4 Abdominal aortic aneurysm, without rupture; K21.9 Gastro-esophageal reflux disease without esophagitis; Z88.0 Allergy status to penicillin; R57.8 Other shock; Z88.6 Allergy status to analgesic agent; R25.1 Tremor, unspecified; R09.02 Hypoxemia; I96 Gangrene, not elsewhere classified